=== PATIENT | female | born 1990 ===

== ENCOUNTER 2022-07-04 13:47 | Inpatient (IN) | payer OTHER, BC, MEDICAID, SELFPAY ==
[2022-07-04 14:56] VITALS: BMI 21.4
[2022-07-04 15:01] VITALS: BP 121/82; PULSE 99; RESP 18; TEMP 36.7; O2SAT 100
[2022-07-04] MEDS: LORazepam 2 mg Tablet PO (16:24)
[2022-07-04] MEDS: diphenhydrAMINE 50 mg Capsule PO (16:24)
[2022-07-04] MEDS: haloperidol 5 mg Tablet PO (16:24)
[2022-07-04 22:00] VITALS: RESP 16
[2022-07-05 06:00] VITALS: BP 102/71; PULSE 109; RESP 17; TEMP 36.6; O2SAT 100
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
--- NOTE | 2022-07-05 12:59 | PC.NURSE ---
Patient Behavior Attempted to talk with patient - patient unable to answer most questions appropriately. For example - are you going to eat lunch? I am who i say i am . Patient goes from tearful and crying to calm and quiet. Patient has only been out of bed a few times this am. She will go to the mirror and stare for 1-2 minutes and go back to bed. When asked if she wanted to hurt herself or others, stated I miss Guera, but she isn't me . Will continue to monitor.
[2022-07-05] MEDS: LORazepam 2 mg Tablet PO (13:27)
--- NOTE | 2022-07-05 13:28 | PC.NURSE ---
Patient Behavior Patient out of bed, pacing in halls, talking incoherently to herself. Patient swings from smiling to crying in just seconds. Patient stated to this digital court reporter that you are my [place] drop and then began crying. Ativan 2mg given PO. Will continue to monitor.
[2022-07-05 14:00] VITALS: BP 109/74; PULSE 72; RESP 18; TEMP 36.8; O2SAT 98
--- NOTE | 2022-07-05 14:30 | PC.NURSE ---
Patient lying in bed with eyes closed. Will continue to monitor.
--- NOTE | 2022-07-05 14:48 | PC.NURSE ---
Patient currently refusing to take ordered Abilify. Explained that the Ordered it today and she stated i might later . Will attempt to administer later in the shift.
--- NOTE | 2022-07-05 15:32 | PC.NURSE ---
Patient Behavior Patient at nurses station requesting a snack. Told the patient i still had medication for her to take. She stated she wanted what she asked for and nothing more. Will try again during the shift.
--- NOTE | 2022-07-05 18:45 | PC.NURSE ---
Medication Refusal Patient was offered her medication (Abilify) again and continues to refuse. Dr. Park notified.
[2022-07-05 21:24] VITALS: BP 130/86; PULSE 98; RESP 18; TEMP 36.7; O2SAT 99
[2022-07-06 06:00] VITALS: BP 107/73; PULSE 76; RESP 18; TEMP 36.9; O2SAT 95; BMI 21.4
[2022-07-06] MEDS: OLANZapine 5 mg ODT PO ×2 (07:53→20:33)
[2022-07-06] MEDS: ARIPiprazole 10 mg Tablet PO (07:53)
[2022-07-06] MEDS: hyDROXYzine 25 mg Capsule 50 MG PO ×2 (07:54→20:33)
[2022-07-06] MEDS: nicotine 2 mg Gum BUCCAL (09:49)
[2022-07-06] MEDS: LORazepam 2 mg/mL INJ 1 mL IM (10:08)
[2022-07-06] MEDS: diphenhydrAMINE 50 mg/mL SDV 1mL IM (10:08)
[2022-07-06] MEDS: haloperidol inj 5 mg/mL INJ 1 mL IM (10:08)
--- NOTE | 2022-07-06 10:09 | PC.NURSE ---
INCREASED BEHAVIORS PT VERY AGITATED, GOING UP AND DOWN HALLS RYMING WORDS, THROWING HANDS IN THE AIR, TELLING STAFF I'M GOING TO HIT YOU ALL, I'm DR. BAY. PT WAS OFFERED MEDICATION SEVERAL TIMES BUT WAS PARANOID STATING, MY MOTHER IN LAW TOOK THAT AND NOW SHE'S SO NO. PT INCREASINGLY BECAME MORE AGITATED COMING UP TO NURSES STATION CRYING, THEN LAUGHING LOUDLY THEN MAKING OBSCURE STATEMENTS TO STAFF. SECURITY WAS CALLED TO STAND BY. WHEN DIVINITY TEACHER GOT HER PT STARTED MAKING STATEMENT I WANT TO MAKE BABIES WITH HIM. THEN LIFTED UP HER SHIRT SHOWING HER STOMACH STATING I HAVE FOUR BABIES BUT THEY TOOK THEM. THEN PT BEGAN CRYING AGAIN. PT WENT TO ROOM AND EDUCATED ON INJECTIONS, PT THEN SUDDENLY AGREED TO TAKE THEM, SAT DOWN AND ASKED X RAY NURSE TO HOLD HER HAND. NURSING HOME PHYSICIAN INJECTED 2 MG OF ATIVAN AND 5 MG OF HALDOL INTO RIGHT DELTOID. THIS RN INJECTED 50 MG OF BENADRYL TO LEFT DELTOID. PT TOLERATED WELL. THIS RN STAYED WITH PT UNTIL SHE CALMED AND STOPPED CRYING. PT REQUESTED ICE WATER AND IT WAS GIVEN. PT LAID DOWN A FEW MINUTES AND THEN GOT UP AND WALKED INTO DAY ROOM WHILE GOING BY NURSES STATION MUTTERING COMMENTS UNDER HER BREATHE. ALL NEEDS MET. PT DID VERBALIZE SOME UNDERSTANDING BUT REMAINS CONFUSED AND MAKING NONSENSICAL STATEMENTS.
--- NOTE | 2022-07-06 10:48 | PC.NURSE ---
PRN MEDICATIONS PT RECEIVED PRN MEDICATIONS EARLY AM FOR INCREASED ANXIETY AND AGITATION. VISTARIL AND ZYDIS GIVEN ORDERED SEE MAR FOR DETAILS. MEDICATIONS NOT EFFECTIVE. PT CONTINUED TO ESCALATE AND REQUIRE ATIVAN, HALDOL AND BENADRYL IM. SEE NOTE FOR DETAILS
[2022-07-06 14:00] VITALS: BP 128/78; PULSE 82; RESP 17; TEMP 36.6; O2SAT 97
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
[2022-07-06 19:42] VITALS: RESP 18
--- NOTE | 2022-07-06 20:30 | PC.NURSE ---
Patient was labile after verbal altercation with another female peer. Patient was making nonsensical bizarre statements to this rfp writer. Redirection attempted but patient continued to be tearful one moment then agitated the next moment. PRN Zyprexa po and vistaril po offered and taken at that time without difficulty. Patient offered snack and fluids. Walked patient to her room after.
--- NOTE | 2022-07-06 21:45 | PC.NURSE ---
Patient is currently resting quietly in bed with eyes closed at this time. No further behavior's noted after prn administration.
[2022-07-06] MEDS: trazodone 50 mg Tablet PO (21:50)
[2022-07-07 06:00] VITALS: BP 108/74; PULSE 68; RESP 16; TEMP 36.6; O2SAT 98
[2022-07-07] MEDS: ARIPiprazole 10 mg Tablet PO (08:29)
[2022-07-07] MEDS: diphenhydrAMINE 50 mg Capsule PO (11:04)
[2022-07-07] MEDS: haloperidol 5 mg Tablet PO (11:04)
[2022-07-07] MEDS: LORazepam 2 mg Tablet PO (11:04)
[2022-07-07 14:00] VITALS: BP 115/85; PULSE 109; RESP 20; TEMP 36.7; O2SAT 98
--- NOTE | 2022-07-07 16:14 | W.PM.NPUPNS ---
Subjective NPU Subjective: Patient is a 31-year-old white female with a history of methamphetamine abuse admitted with psychosis after initially being transferred from another hospital. The patient continue to appear confused on the unit. She had reported that someone had taken her schedules and that she was waiting and happen for Ken. She reported that she had been to [place] before and that she had met with a another person on the road to her redemption. She had spent most of the day lying in her bed and appeared to only come out to get food and sustenance. She had required significant prompting for routine activities of daily living. Mental Status Exam MSE Comments: This is a slender white female who appeared older than her stated age in hospital scrubs with poor grooming and intermittent eye contact. No abnormal movements except for extreme psychomotor agitation. Her cooperation was limited on examination. Speech was random with decreased rate and volume. Mood described as okay, her affect was labile, bizarre and mood incongruent. Thought process was disorganized. Thought content: Patient did not report suicidal or homicidal ideation, there was clear evidence of bizarre delusions and she did appear to be responding to internal stimuli. Attention and concentration were impaired and memory was unreliable but none were formally tested. She is alert and oriented to person and location but not date. Insight was feeble, Her judgment and impulse control are impaired. Vitals/I&O/Wt Last Vital Signs Temp 98.1 F 07/07/22 14:00 Pulse 109 H 07/07/22 14:00 Resp 20 H 07/07/22 14:00 BP 115/85 07/07/22 14:00 Pulse Ox 98 07/07/22 14:00 O2 Del Method 07/06/22 06:00 Weight last 48 hrs Weight 58.457 kg A&P Assessment and plan (1) Altered mental status: (2) Psychosis: (3) Methamphetamine use disorder, severe: Plan This is a 31-year-old white female who looks notably altered in mental status and a presentation consistent with methamphetamine use who presents with psychosis, confusion emotional dysregulation with significant hyperkinetic activity. 1. Increase abilify 15mg in am. 2. Continue every 15 minute checks for safety. 3. Encourage individual, group and milieu therapies. 4. Encourage sober living treatment after discharge at the highest level of care to which she is willing to commit. Involuntary Hold Information 96 Hour Hold: 96 Hour Involuntary Admission: No Attestations NPU Medical Necessity Statement*: Inpatient hospitalization is medically necessary and the clinically appropriate intervention at this time. We will monitor/initiate medications and make changes as indicated. She will be in the hospital for over 2 midnights. Likely length of stay 5 to 7 days. Coding Level of Care Code Established Pt Acute Senior Service Technician for Briseida Hathaway Patient Type Established History Problem Focused Exam Problem Focused Medical Decision Making Straight Forward Diagnoses Altered mental status R41.82 Psychosis F29 Methamphetamine use disorder, severe F15.20
[2022-07-07 20:21] VITALS: BP 101/66; PULSE 80; RESP 16; TEMP 36.9; O2SAT 96
[2022-07-08] MEDS: ARIPiprazole 10 mg Tablet 15 MG PO (08:00)
[2022-07-08] MEDS: haloperidol 5 mg Tablet PO ×2 (08:09→20:17)
[2022-07-08] MEDS: LORazepam 2 mg Tablet PO (08:09)
[2022-07-08] MEDS: diphenhydrAMINE 50 mg Capsule PO (08:09)
[2022-07-08 14:00] VITALS: BP 101/63; PULSE 94; RESP 16; TEMP 36.9; O2SAT 93
--- NOTE | 2022-07-08 16:39 | P.NPUPN_ITS ---
Subjective NPU Subjective: Patient is a 31-year-old white female with a history of methamphetamine abuse admitted with psychosis after initially being transferred from another hospital due to psychiatric bed availability. The patient continue to appear confused on the unit but appeared to be coming out of her room more. She continued to be confused and reported that she was here for her schedules and reported that she felt ready to return home. She had minimized the use of any illicit drugs and reported that she simply needed to get back on track again. Staff notes the patient continued to be somewhat guarded and struggled with having periods of intense verbal outbursts and periods of intense irritability that required the as needed use of medications. Mental Status Exam MSE Comments: This is a slender white female who appeared older than her stated age in hospital scrubs with poor grooming and intermittent eye contact. No abnormal movements except for extreme psychomotor agitation. Her cooperation was limited on examination. Speech was diminished in rate and normal in volume. Mood described as better. Her affect was labile with periods of happiness followed by periods of intense crying without any clear provocation. Thought process was disorganized. Thought content: Patient did not report suicidal or homicidal ideation, there was clear evidence of bizarre delusions and she did appear to be responding to internal stimuli. Attention and concentration were impaired and memory was unreliable but none were formally tested. She is alert and oriented to person and location but not date. Insight was feeble, Her judgment and impulse control are impaired. Vitals/I&O/Wt Last Vital Signs Temp 98.5 F 07/08/22 14:00 Pulse 94 07/08/22 14:00 Resp 16 07/08/22 14:00 BP 101/63 07/08/22 14:00 Pulse Ox 93 07/08/22 14:00 O2 Del Method 07/08/22 14:00 A&P Assessment and plan (1) Altered mental status: (2) Psychosis: (3) Methamphetamine use disorder, severe: Plan This is a 31-year-old white female who looks notably altered in mental status and a presentation consistent with methamphetamine use who presents with psychosis, confusion emotional dysregulation with significant hyperkinetic activity. 1. Continue abilify at 15mg in am. 2. Continue every 15 minute checks for safety. 3. Encourage individual, group and milieu therapies. 4. Encourage sober living treatment after discharge at the highest level of care to which she is willing to commit. Involuntary Hold Information 96 Hour Hold: 96 Hour Involuntary Admission: No Attestations NPU Medical Necessity Statement*: Inpatient hospitalization is medically necessary and the clinically appropriate intervention at this time. We will monitor/initiate medications and make changes as indicated. She will be in the hospital for over 2 midnights. Likely length of stay 5 to 7 days. Coding Level of Care Code Established Pt Acute Reel Blade Bender Furnace Tender for Briseida Fwsiddharth Patient Type Established History Problem Focused Exam Problem Focused Medical Decision Making Straight Forward Diagnoses Altered mental status R41.82 Psychosis F29 Methamphetamine use disorder, severe F15.20
[2022-07-08] MEDS: hyDROXYzine 25 mg Capsule 50 MG PO (19:39)
[2022-07-08] MEDS: OLANZapine 5 mg ODT PO (19:39)
[2022-07-08 20:12] VITALS: BP 120/74; PULSE 92; RESP 17; TEMP 36.4; O2SAT 93
[2022-07-08] MEDS: nicotine 2 mg Gum BUCCAL ×2 (20:17→22:25)
[2022-07-09 06:00] VITALS: RESP 16
[2022-07-09] MEDS: nicotine 2 mg Gum BUCCAL ×4 (08:41→18:12)
[2022-07-09] MEDS: ARIPiprazole 10 mg Tablet 15 MG PO (08:41)
[2022-07-09] MEDS: haloperidol 5 mg Tablet PO (09:15)
[2022-07-09] MEDS: diphenhydrAMINE 50 mg Capsule PO (09:15)
[2022-07-09] MEDS: LORazepam 2 mg Tablet PO (09:47)
[2022-07-09] MEDS: acetaminophen 325 mg Tablet 650 MG PO (12:56)
[2022-07-09 14:00] VITALS: RESP 18
[2022-07-09] MEDS: hyDROXYzine 25 mg Capsule 50 MG PO (15:15)
--- NOTE | 2022-07-09 15:46 | P.NPUPN_ITS ---
Subjective NPU Subjective: Patient is a 31-year-old white female with a history of methamphetamine abuse admitted with psychosis after initially being transferred from another hospital due to psychiatric bed availability. The patient had been coming out of her room more frequently. She had responded well to prompting for completing activities of daily living. She continued to show evidence of periods of intense agitation and appeared to be at times triggered into periods of intense crying. The patient had minimized her substance abuse problem initially but stated that she was ready to consider treatment for her addiction. The patient had reported previously having problems with being able to separate reality from fantasy when taking amphetamines. Mental Status Exam MSE Comments: This is a slender white female who appeared older than her stated age in hospital scrubs with poor grooming and intermittent eye contact. No abnormal movements except for extreme psychomotor agitation. Her cooperation was improved today. Speech was diminished in rate and normal in volume. Mood described as better. Her affect was labile, mood incongruent. Thought process was less disorganized. Thought content: Patient did not report suicidal or homicidal ideation, there was clear evidence of paranoia and she did appear to be responding to internal stimuli. Attention and concentration were impaired and memory was unreliable but none were formally tested. She is alert and oriented to person and location but not date. Insight was feeble, Her judgment and impulse control are impaired. Vitals/I&O/Wt Last Vital Signs Temp 97.5 F L 07/08/22 20:12 Pulse 92 07/08/22 20:12 Resp 16 07/09/22 06:00 BP 120/74 07/08/22 20:12 Pulse Ox 93 07/08/22 20:12 O2 Del Method 07/08/22 14:00 A&P Assessment and plan (1) Altered mental status: (2) Psychosis: (3) Methamphetamine use disorder, severe: Plan This is a 31-year-old white female who looks notably altered in mental status and a presentation consistent with methamphetamine use who presents with psychosis, confusion emotional dysregulation with significant hyperkinetic activity. 1. Continue abilify at 15mg in am. 2. Continue every 15 minute checks for safety. 3. Encourage individual, group and milieu therapies. 4. Encourage sober living treatment after discharge at the highest level of care to which she is willing to commit. Patient in need of inpatient substance abuse treatment. Involuntary Hold Information 96 Hour Hold: 96 Hour Involuntary Admission: No Attestations NPU Medical Necessity Statement*: Inpatient hospitalization is medically necessary and the clinically appropriate intervention at this time. We will monitor/initiate medications and make changes as indicated. She will be in the hospital for over 2 midnights. Likely length of stay 5 to 7 days. Coding Level of Care Code Established Pt Acute Coin Box Inspector for Briseida Hathaway Patient Type Established History Problem Focused Exam Problem Focused Medical Decision Making Straight Forward Diagnoses Altered mental status R41.82 Psychosis F29 Methamphetamine use disorder, severe F15.20
[2022-07-09 20:12] VITALS: BP 100/61; PULSE 85; RESP 16; O2SAT 98
[2022-07-10 06:00] VITALS: RESP 15
[2022-07-10] MEDS: acetaminophen 325 mg Tablet 650 MG PO (07:24)
[2022-07-10] MEDS: ARIPiprazole 10 mg Tablet 15 MG PO (08:35)
[2022-07-10] MEDS: nicotine 2 mg Gum BUCCAL ×5 (08:36→22:00)
--- NOTE | 2022-07-10 09:14 | PC.NURSE ---
Patient going from being very ecstatic, to calm, to crying. Patient talks in rhymes and stated she knew the manuel to her brenda was in the era, of surinder, for the aura. She cries often about her mother dying and quickly switches to other topics like listening to Weezer and having 4 kids. She repeatedly talks about needing manuel and the skittles come and pick her up on time today. This RN told her she was not being discharged today and although she acknowledged this she still talked about calling them.
[2022-07-10] MEDS: diphenhydrAMINE 50 mg Capsule PO ×2 (09:48→14:08)
[2022-07-10] MEDS: OLANZapine 5 mg ODT PO ×2 (10:45→21:58)
--- NOTE | 2022-07-10 13:20 | P.NPUPN_ITS ---
Subjective NPU Subjective: Patient is a 31-year-old white female with a history of methamphetamine abuse admitted with psychosis after initially being transferred from another hospital due to psychiatric bed availability. The patient continued to engage in odd behaviors on the unit. She was throwing her shoes in the hallway and stated that she was caught in between 2 doorways. She continued to appear confused and required some redirection. She continued to minimize the problems including substance abuse that had led to her active problems. She continued to have intense periods of agitation and frequent crying spells. Patient denied having currently any thoughts of hurting herself or others Mental Status Exam MSE Comments: This is a slender white female who appeared older than her stated age in hospital scrubs with poor grooming and intermittent eye contact. There was no evidence of any abnormal involuntary motor movements appreciated. . Speech was diminished in rate and normal in volume. Mood described as good. Her affect was labile with periods of peculiar thinking noted. Thought process remained disorganized and nonlinear. Thought content: Patient did not report suicidal or homicidal ideation, She appeared to be responding to internal stimuli. Attention and concentration were impaired and memory was unreliable but none were formally tested. She is alert and oriented to person and l ocation but not date. Insight was feeble, Her judgment and impulse control are impaired. Vitals/I&O/Wt Last Vital Signs Temp 97.5 F L 07/08/22 20:12 Pulse 85 07/09/22 20:12 Resp 15 07/10/22 06:00 BP 100/61 07/09/22 20:12 Pulse Ox 98 07/09/22 20:12 O2 Del Method 07/08/22 14:00 A&P Assessment and plan (1) Altered mental status: (2) Psychosis: (3) Methamphetamine use disorder, severe: Plan This is a 31-year-old white female who looks notably altered in mental status and a presentation consistent with methamphetamine use who presents with psychosis, confusion emotional dysregulation with significant hyperkinetic activity. 1. Continue abilify at 15mg in am. 2. Continue every 15 minute checks for safety. 3. Encourage individual, group and milieu therapies. 4. Encourage sober living treatment after discharge at the highest level of care to which she is willing to commit. Patient in need of inpatient substance abuse treatment. Involuntary Hold Information 96 Hour Hold: 96 Hour Involuntary Admission: No Attestations NPU Medical Necessity Statement*: Inpatient hospitalization is medically necessary and the clinically appropriate intervention at this time. We will monitor/initiate medications and make changes as indicated. She will be in the hospital for a likely length of stay 5 to 7 days. Coding Level of Care Code Established Pt Acute Chronometer Assembler And Adjuster for Briseida Hathaway Patient Type Established History Problem Focused Exam Problem Focused Medical Decision Making Straight Forward Diagnoses Altered mental status R41.82 Psychosis F29 Methamphetamine use disorder, severe F15.20
[2022-07-10 14:00] VITALS: BP 104/65; PULSE 80; RESP 17; TEMP 36.6; O2SAT 95
[2022-07-10] MEDS: LORazepam 2 mg Tablet PO (14:07)
[2022-07-10] MEDS: haloperidol 5 mg Tablet PO (14:08)
[2022-07-10] MEDS: ziprasidone 20 mg/mL SDV IM (14:40)
[2022-07-10] MEDS: ibuprofen 600 mg Tablet PO (14:46)
--- NOTE | 2022-07-10 15:23 | PC.NURSE ---
40 mg Geodon administered IM at 1404 due to patient stripping another patient's bed and lying on the floor with the stripped linens. She then began sobbing uncontrollably and occasionally stopping to talk about skittles, her manuel to her brenda, a car being her home, manuel having a dump truck, etc. Patient then got out of the floor and started talking quickly, eventually becoming emotional enough to jump up and down on both feet with clenched fists. She stated, it's not fair that I'm in here! It's not okay! This RN tried to verbally deescalate the patient, but the patient continued to pace, ramble, and get angry. Patient initially refused IM Geodon and said we would have to jorge her and that she would keep running if we tried to give her a shot. This RN and other staff got the patient to agree to take the medication so she could remain stable. Security on standby.
[2022-07-10 20:38] VITALS: RESP 17
[2022-07-10] MEDS: hyDROXYzine 25 mg Capsule 50 MG PO (21:58)
[2022-07-10] MEDS: trazodone 50 mg Tablet PO (21:58)
[2022-07-11] MEDS: OLANZapine 5 mg ODT PO (02:46)
[2022-07-11] MEDS: hyDROXYzine 25 mg Capsule 50 MG PO ×2 (02:46→12:27)
[2022-07-11] MEDS: nicotine 2 mg Gum BUCCAL ×5 (03:26→19:38)
[2022-07-11 06:00] VITALS: RESP 18
[2022-07-11] MEDS: LORazepam 2 mg Tablet PO ×2 (06:31→19:27)
[2022-07-11] MEDS: diphenhydrAMINE 50 mg Capsule PO ×2 (06:31→19:27)
[2022-07-11] MEDS: haloperidol 5 mg Tablet PO ×2 (06:31→19:27)
[2022-07-11] MEDS: ARIPiprazole 10 mg Tablet 15 MG PO (08:25)
[2022-07-11 14:00] VITALS: BP 103/74; PULSE 95; RESP 16; TEMP 36.6; O2SAT 99
--- NOTE | 2022-07-11 17:05 | W.PM.NPUPNS ---
Subjective NPU Subjective: Patient is a 31-year-old white female with a history of methamphetamine abuse admitted with psychosis after initially being transferred from another hospital due to psychiatric bed availability. Patient continued to show evidence of unusual behaviors on the milieu. She had been less isolative today. She continued to remain somewhat silly and made odd connections between unrelated subjects. She continued to report some struggles with motivation but acknowledged that she had been using amphetamines which messes me up . She had reported improved sleep. She denied having any thoughts of hurting herself or others. The patient reported good energy and reported desire to see her family again. Mental Status Exam MSE Comments: This is a slender white female who appeared older than her stated age in hospital scrubs with poor grooming and intermittent eye contact. There was no evidence of any abnormal involuntary motor movements appreciated. . Speech was diminished in rate and normal in volume. Mood described as good. Her affect was labile and peculiar. Thought process was more linear but derailed during the interview. Thought content: Patient did not report suicidal or homicidal ideation, She appeared to be responding to internal stimuli. Attention and concentration were impaired and memory was unreliable but none were formally tested. She is alert and oriented to person and location but not date. Insight was feeble, Her judgment and impulse control are impaired. Vitals/I&O/Wt Last Vital Signs Temp 98 F 07/11/22 14:00 Pulse 95 07/11/22 14:00 Resp 16 07/11/22 14:00 BP 103/74 07/11/22 14:00 Pulse Ox 99 07/11/22 14:00 O2 Del Method 07/11/22 14:00 A&P Assessment and plan (1) Altered mental status: (2) Psychosis: (3) Methamphetamine use disorder, severe: Plan This is a 31-year-old white female who looks notably altered in mental status and a presentation consistent with methamphetamine use who presents with psychosis, confusion emotional dysregulation with significant hyperkinetic activity. 1. Continue abilify at 15mg in am. 2. Continue every 15 minute checks for safety. 3. Encourage individual, group and milieu therapies. 4. Encourage sober living treatment after discharge at the highest level of care to which she is willing to commit. Patient in need of inpatient substance abuse treatment. She is showing some mild improvement at this time. Involuntary Hold Information 96 Hour Hold: 96 Hour Involuntary Admission: No Attestations NPU Medical Necessity Statement*: Inpatient hospitalization is medically necessary and the clinically appropriate intervention at this time. We will monitor/initiate medications and make changes as indicated. She will be in the hospital for a likely length of stay 5 to 7 days. Coding Level of Care Code Established Pt Acute Tunnel Elastic Operator Zigzag for Briseida Hathaway Patient Type Established History Problem Focused Exam Problem Focused Medical Decision Making Straight Forward Diagnoses Altered mental status R41.82 Psychosis F29 Methamphetamine use disorder, severe F15.20
[2022-07-11 20:38] VITALS: BP 133/88; PULSE 81; RESP 17; TEMP 36.8; O2SAT 97
[2022-07-12 06:00] VITALS: BP 118/80; PULSE 94; RESP 18; TEMP 36.5; O2SAT 98
[2022-07-12] MEDS: diphenhydrAMINE 50 mg Capsule PO ×3 (06:49→21:40)
[2022-07-12] MEDS: LORazepam 2 mg Tablet PO ×3 (06:49→21:40)
[2022-07-12] MEDS: haloperidol 5 mg Tablet PO ×3 (06:50→21:40)
--- NOTE | 2022-07-12 06:51 | PC.NURSE ---
pt up at nurses station asking if she is getting to go home today I told pt that is for the doctor to decide. patient stated if she did not get to go home today everyone will get to know her in the bad way . pt continued to ask if she was going home today because she wanted to talk with her daughter today. I asked patient if would like something for her anxiety she stated no when I want them they will want to give them to me . after attempts to redirect patient pt left nurses station walked down hallway came back and requested her medication. administered haldol, benadryll, lorazepam.
[2022-07-12] MEDS: nicotine 2 mg Gum BUCCAL ×4 (07:38→19:58)
[2022-07-12] MEDS: ARIPiprazole 10 mg Tablet 15 MG PO (08:29)
[2022-07-12] MEDS: benztropine 1 mg Tablet PO (10:29)
--- NOTE | 2022-07-12 12:54 | P.NPUPN_ITS ---
Subjective NPU Subjective: Patient is a 31-year-old white female with a history of methamphetamine abuse admitted with psychosis after initially being transferred from another hospital due to psychiatric bed availability. The patient had endorsed a history of bipolar disorder with a history of decreased need for sleep and reports of a history of racing thoughts even in the absence of drug use. Patient reports that he that she wishes to see her daughter who is 12 toes down and reports that she is special. She had reported feeling that she is at home right now but could not elaborate regarding this matter. She had reported that she needed help with making her way through the [facility]. Mental Status Exam MSE Comments: This is a slender white female who appeared older than her stated age in hospital scrubs with poor grooming and intermittent eye contact. There was no evidence of any abnormal involuntary motor movements appreciated. . Speech was productive and normal in regards to rate and rhythm. Her mood was described as good. Her affect was odd and peculiar. Thought process was nonlinear with periods of odd use of metaphors with clang associations. Thought content: Patient did not report suicidal or homicidal ideation, there was some evidence of delusional thinking. There was evidence of overvalued ideas. Her attention and concentration remain impaired and memory was unreliable but none were formally tested. She is alert and oriented to person and location but not date. Insight was feeble, Her judgment and impulse control are impaired. Vitals/I&O/Wt Last Vital Signs Temp 97.7 F 07/12/22 06:00 Pulse 94 07/12/22 06:00 Resp 18 07/12/22 06:00 BP 118/80 07/12/22 06:00 Pulse Ox 98 07/12/22 06:00 O2 Del Method 07/12/22 06:00 A&P Assessment and plan (1) Altered mental status: (2) Psychosis: (3) Methamphetamine use disorder, severe: Plan This is a 31-year-old white female who looks notably altered in mental status and a presentation consistent with methamphetamine use who presents with psychosis, confusion emotional dysregulation with significant hyperkinetic activity. 1. Increase abilify to 20mg in am. 2. Continue every 15 minute checks for safety. 3. Encourage individual, group and milieu therapies. 4. Encourage sober living treatment after discharge at the highest level of care to which she is willing to commit. Patient in need of inpatient substance abuse treatment. She is showing some mild improvement at this time. Involuntary Hold Information 96 Hour Hold: 96 Hour Involuntary Admission: No Attestations NPU Medical Necessity Statement*: Inpatient hospitalization is medically necessary and the clinically appropriate intervention at this time. We will monitor/initiate medications and make changes as indicated. She will be in the hospital for a likely length of stay 5 to 7 days. Coding Level of Care Code Established Pt Acute Tax Compliance Representative for Briseida Hathaway Patient Type Established History Problem Focused Exam Problem Focused Medical Decision Making Straight Forward Diagnoses Altered mental status R41.82 Psychosis F29 Methamphetamine use disorder, severe F15.20
[2022-07-12] MEDS: ARIPiprazole 10 mg Tablet 5 MG PO (13:37)
[2022-07-12 14:00] VITALS: BP 99/65; PULSE 113; RESP 17; TEMP 36.3; O2SAT 97
[2022-07-12] MEDS: OLANZapine 5 mg ODT PO (16:23)
[2022-07-12] MEDS: trazodone 50 mg Tablet PO (19:58)
[2022-07-12] MEDS: hyDROXYzine 25 mg Capsule 50 MG PO (19:58)
[2022-07-12 20:42] VITALS: BP 120/72; PULSE 99; RESP 18; TEMP 36.7; O2SAT 100
--- NOTE | 2022-07-12 21:43 | PC.NURSE ---
AFTER SPEAKING TO HER DAUGHTER PT CRYING, ROCKING BACK AND FORTH, STATING WANTING TO GO HOME, ADMINISTERED MEDICATION TO ASSIST PT WITH ANXIETY.
[2022-07-13 06:00] VITALS: BP 109/74; PULSE 90; RESP 18; TEMP 36.5; O2SAT 100
[2022-07-13] MEDS: hyDROXYzine 25 mg Capsule 50 MG PO (06:06)
[2022-07-13] MEDS: nicotine 2 mg Gum BUCCAL ×6 (06:06→18:56)
[2022-07-13] MEDS: LORazepam 2 mg Tablet PO ×2 (06:47→15:55)
[2022-07-13] MEDS: diphenhydrAMINE 50 mg Capsule PO ×2 (06:47→15:55)
[2022-07-13] MEDS: haloperidol 5 mg Tablet PO ×2 (06:47→15:55)
--- NOTE | 2022-07-13 06:48 | PC.NURSE ---
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 pt at nurses station crying talking about manuels mom being and manuel is . administered prn medication for anxiety
[2022-07-13] MEDS: OLANZapine 5 mg ODT PO (07:45)
[2022-07-13] MEDS: ARIPiprazole 10 mg Tablet 20 MG PO (08:45)
[2022-07-13] MEDS: ziprasidone hcl 20 mg Capsule PO ×2 (10:06→21:28)
[2022-07-13 14:00] VITALS: RESP 14
--- NOTE | 2022-07-13 16:15 | PC.NURSE ---
PT UP IN THE [facility] AFTER NAP AND IS TEARFUL. PT VERY MANIC TALKING WITH LOOSE ASSOCIATIONS. PT RECEIVED ORAL BENADRYL, ATIVAN, AND HALDOL. PT CONTINUES TO BE MANIC AND UP AT THE NURSES STATION. DOCTOR NOTIFIED.
--- NOTE | 2022-07-13 17:56 | P.NPUPN_ITS ---
Subjective NPU Subjective: Patient is a 31-year-old white female with a history of methamphetamine abuse admitted with psychosis after initially being transferred from another hospital due to psychiatric bed availability. The patient had continued to have periods of agitation requiring as needed medications. She had reported that she needed to go home today. She had made vague threatening statements to staff stating that she would potentially hit staff if she was unable to return home. She had reported that she was a dump truck and did not elaborate regarding the meaning of this. She continued to require additional medications at night for sleep with significant problems with engaging in self care and an inability to control her moods with extreme periods of crying followed by periods of intense agitation. The patient continued to be somewhat demanding on the unit and appeared confused regarding where she was currently. Mental Status Exam MSE Comments: This is a slender white female who appeared older than her stated age in hospital scrubs with poor grooming and intermittent eye contact. There was no evidence of any abnormal involuntary motor movements appreciated. . Speech was productive and normal in regards to rate and rhythm. Her mood was described as great. Her affect was odd and peculiar. Thought process was nonlinear with periods of odd use of metaphors with clang associations. Thought content: Patient did not report suicidal or homicidal ideation, there was evidence of bizarre delusional thinking. There was evidence of overvalued ideas. Her attention and concentration remain impaired and memory was unreliable but none were formally tested. She is alert and oriented to person and location but not date. Insight was feeble, Her judgment and impulse control are impaired. Vitals/I&O/Wt Last Vital Signs Temp 97.7 F 07/13/22 06:00 Pulse 90 07/13/22 06:00 Resp 14 07/13/22 14:00 BP 109/74 07/13/22 06:00 Pulse Ox 100 07/13/22 06:00 O2 Del Method 07/13/22 06:00 A&P Assessment and plan (1) Altered mental status: (2) Psychosis: (3) Methamphetamine use disorder, severe: Plan This is a 31-year-old white female who looks notably altered in mental status and a presentation consistent with methamphetamine use who presents with psychosis, confusion emotional dysregulation with significant hyperkinetic activity. 1. Continue abilify to 20mg in am. 2. Continue every 15 minute checks for safety. 3. Encourage individual, group and milieu therapies. 4. Encourage sober living treatment after discharge at the highest level of care to which she is willing to commit. Patient in need of inpatient substance abuse treatment. She is showing some mild improvement at this time but not able to leave voluntarily. Involuntary Hold Information 96 Hour Hold: 96 Hour Involuntary Admission: No Attestations NPU Medical Necessity Statement*: Inpatient hospitalization is medically necessary and the clinically appropriate intervention at this time. We will monitor/initiate medications and make changes as indicated. She will be in the hospital for a likely length of stay 5 to 7 days. Coding Level of Care Code Established Pt Acute Supervisor Network Control Operators for Briseida Hathaway Patient Type Established History Problem Focused Exam Problem Focused Medical Decision Making Straight Forward Diagnoses Altered mental status R41.82 Psychosis F29 Methamphetamine use disorder, severe F15.20
[2022-07-13 20:18] VITALS: BP 98/63; PULSE 82; RESP 14; TEMP 36.8; O2SAT 98
[2022-07-14] MEDS: nicotine 2 mg Gum BUCCAL ×5 (01:23→18:16)
[2022-07-14] MEDS: trazodone 50 mg Tablet PO ×2 (01:37→19:43)
[2022-07-14] MEDS: hyDROXYzine 25 mg Capsule 50 MG PO ×2 (04:56→11:03)
--- NOTE | 2022-07-14 04:59 | PC.NURSE ---
pt up to desk requesting drugs . pt has been intruding on another pt's space . Vistaril 50mg po given.
[2022-07-14 06:00] VITALS: RESP 12
[2022-07-14] MEDS: ARIPiprazole 10 mg Tablet 20 MG PO (08:05)
[2022-07-14] MEDS: ziprasidone hcl 20 mg Capsule PO ×2 (08:05→19:43)
[2022-07-14] MEDS: benztropine 1 mg Tablet PO (08:27)
[2022-07-14] MEDS: OLANZapine 5 mg ODT PO (11:03)
[2022-07-14 14:00] VITALS: BP 112/77; PULSE 90; RESP 16; TEMP 36.6; O2SAT 96
[2022-07-14] MEDS: haloperidol inj 5 mg/mL INJ 1 mL IM (14:38)
--- NOTE | 2022-07-14 14:39 | PC.NURSE ---
PT WAS RUNNING UP AND DOWN THE HALLS AND BEING INTRUSIVE IN OTHER PTS ROOMS. PT REPEATEDLY STATED SHE WAS GOING TO TODAY. PT REPEATEDLY REPEATS PHRASES THAT DO NOT MAKE SENSE. PT WAS GIVEN HALDOL AND ATIVAN IN THE LEFT DELTOID.
--- NOTE | 2022-07-14 16:20 | PC.NURSE ---
PT FRIEND ANDRÉS DÍAZ CALLED TO GIVE MORE INFORMATION ABOUT THIS PT. ANDRÉS TELLS THIS NURSE THAT THE PT HAS HAD A ROUGH YEAR. PTS DAUGHTER WAS TAKEN AWAY THIS YEAR FOR SODOMY ACCUSATIONS. ANDRÉS STATES PT ONLY USED METH RECREATOINALLY UP UNTIL RECENTLY SHE STARTED USING DAILY. ANDRÉS STATES THE PT HAS ALWAYS BEEN ODD AND TALKS IN METAPHORS. HE IS NOT SURE HOW MUCH DIFFERENT SHE IS NOW THAN AT BASELINE.
--- NOTE | 2022-07-14 17:34 | W.PM.NPUPNS ---
Subjective NPU Subjective: Patient is a 31-year-old white female with a history of methamphetamine abuse admitted with psychosis after initially being transferred from another hospital due to psychiatric bed availability. The patient had continued to show evidence of bizarre behavior on the milieu. She continued to have extreme episodes of odd laughing followed by periods of intense crying with notable emotional outbursts and continued confusion. Collateral information gathered by the team continued to show evidence that the patient had been using stimulants including crystal methamphetamine for 6 years and she had largely been declining in regards to her mental state throughout this time. The patient reported today no thoughts of hurting herself or others. She continued to make unusual requests stating that she needed to become a frog and jump on a truck and leave here. Mental Status Exam MSE Comments: This is a slender white female who appeared older than her stated age in hospital scrubs with poor grooming and intermittent eye contact. There was no evidence of any abnormal involuntary motor movements appreciated. Speech was productive and normal in regards to rate and rhythm. Her mood was described as good. Her affect was odd and peculiar. Thought process was nonlinear with periods of odd use of metaphors with clang associations. Thought content: Patient did not report suicidal or homicidal ideation, there was evidence of bizarre delusional thinking. There was evidence of overvalued ideas. Her attention and concentration remain impaired and memory was unreliable but none were formally tested. She is alert and oriented to person and location but not date. Insight was feeble. Her judgment and impulse control are impaired. Vitals/I&O/Wt Last Vital Signs Temp 98 F 07/14/22 14:00 Pulse 90 07/14/22 14:00 Resp 16 07/14/22 14:00 BP 112/77 07/14/22 14:00 Pulse Ox 96 07/14/22 14:00 O2 Del Method 07/14/22 14:00 A&P Assessment and plan (1) Psychosis: (2) Altered mental status: (3) Methamphetamine use disorder, severe: Plan This is a 31-year-old white female who looks notably altered in mental status and a presentation consistent with methamphetamine use who presents with psychosis, confusion emotional dysregulation with significant hyperkinetic activity. 1. Continue abilify to 20mg in am. 2. Continue every 15 minute checks for safety. 3. Encourage individual, group and milieu therapies. 4. Encourage sober living treatment after discharge at the highest level of care to which she is willing to commit. Patient in need of inpatient substance abuse treatment. She is showing some mild improvement at this time but not able to leave voluntarily. Involuntary Hold Information 96 Hour Hold: 96 Hour Involuntary Admission: No Attestations NPU Medical Necessity Statement*: Inpatient hospitalization is medically necessary and the clinically appropriate intervention at this time. We will monitor/initiate medications and make changes as indicated. She will be in the hospital for a likely length of stay 5 to 7 days. Coding Level of Care Code Established Pt Acute Narrow Gauge Operator for Briseida Hathaway Patient Type Established History Problem Focused Exam Problem Focused Medical Decision Making Straight Forward Diagnoses Psychosis F29 Altered mental status R41.82 Methamphetamine use disorder, severe F15.20
[2022-07-14] MEDS: LORazepam 2 mg Tablet PO (19:42)
[2022-07-14 21:07] VITALS: BP 108/72; PULSE 92; RESP 18; TEMP 36.3; O2SAT 97
[2022-07-15 06:00] VITALS: BP 99/62; PULSE 100; RESP 18; TEMP 36.4; O2SAT 99
[2022-07-15] MEDS: ARIPiprazole 10 mg Tablet 20 MG PO (08:21)
[2022-07-15] MEDS: nicotine 2 mg Gum BUCCAL ×3 (08:28→15:51)
[2022-07-15] MEDS: diphenhydrAMINE 50 mg Capsule PO (08:44)
[2022-07-15] MEDS: haloperidol 5 mg Tablet PO (08:44)
[2022-07-15] MEDS: LORazepam 2 mg Tablet PO (08:45)
[2022-07-15] MEDS: ziprasidone hcl 20 mg Capsule PO ×2 (09:57→19:05)
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
[2022-07-15 13:40] VITALS: BP 109/76; PULSE 79; RESP 16; TEMP 36.6; O2SAT 100
[2022-07-15] MEDS: haloperidol inj 5 mg/mL INJ 1 mL IM (15:53)
[2022-07-15] MEDS: diphenhydrAMINE 50 mg/mL SDV 1mL IM (15:53)
[2022-07-15] MEDS: LORazepam 2 mg/mL INJ 1 mL IM (15:54)
[2022-07-15] MEDS: ibuprofen 600 mg Tablet PO (18:30)
[2022-07-15] MEDS: hyDROXYzine 25 mg Capsule 50 MG PO (18:30)
[2022-07-15] MEDS: benztropine 1 mg Tablet PO (19:05)
[2022-07-16] MEDS: LORazepam 2 mg Tablet PO ×4 (06:50→20:15)
[2022-07-16] MEDS: diphenhydrAMINE 50 mg Capsule PO ×4 (06:50→20:14)
[2022-07-16] MEDS: haloperidol 5 mg Tablet PO ×4 (06:50→20:15)
[2022-07-16] MEDS: ARIPiprazole 10 mg Tablet 20 MG PO (07:47)
[2022-07-16] MEDS: ziprasidone hcl 20 mg Capsule PO (07:47)
--- NOTE | 2022-07-16 07:48 | PC.NURSE ---
PRN GEODON 20 MG GIVEN PO PER PT C/O INCREASED PSYCHOSIS/AGITATION. PT PACING HALLWAY, ASKING PEOPLE TO SHAKE HER HAND, ASKING IF THEY WILL BE HER GOD
--- NOTE | 2022-07-16 07:55 | PC.NURSE ---
SHIFT ASSESSMENT DENIES SI/HI BUT TEARFUL, CRYING TOLD STAFF I'M JUST TRYING TO FIND OUT IF THEY ARE ALL ALIVE .... INCREASED ENERGY NOTED, PACING HALLWAYS AND SPEAKING TO ANYBODY THAT SHE PASSES BY. ASKING THIS STAFF MEMBER WILL YOU BE MY GOD TODAY
[2022-07-16] MEDS: nicotine 2 mg Gum BUCCAL ×3 (09:17→16:39)
--- NOTE | 2022-07-16 10:08 | PC.NURSE ---
PRN BENADRYL AND HALDOL BENADRYL 50 MG GIVEN PO WITH HALDOL 5 MG PO PER PT C/O STATED ANXIETY/AGITATION. PT HAS BEEN PACING HALLWAY OR LINGERING AT NURSES STATION, WAVING HANDS IN AIR, RAPID PRESSURED SPEECH NOTED, WILL BE TEARFUL OFF AND ON TALKING ABOUT HER SON DR. ERNST ... WILL CONT TO MONITOR
[2022-07-16] MEDS: OLANZapine 5 mg ODT PO (11:50)
[2022-07-16] MEDS: hyDROXYzine 25 mg Capsule 50 MG PO ×2 (11:50→20:15)
[2022-07-16 14:00] VITALS: BP 102/73; PULSE 100; RESP 18; TEMP 36.5; O2SAT 98
--- NOTE | 2022-07-16 15:14 | PC.NURSE ---
PRN HALDOL & BENADRYL HALDOL 5 MG GIVEN PO WITH BENADRYL 50 MG PO PER PT C/O STATED ANXIETY/AGITATION. PT CONT TO LINGER AT DESK, ASKING WHEN CAN SHE LEAVE, WHEN CAN SHE GET MORE PILLS
[2022-07-16] MEDS: ibuprofen 600 mg Tablet PO (15:23)
--- NOTE | 2022-07-16 15:55 | P.NPUPN_ITS ---
Subjective NPU Subjective: Patient is a 31-year-old white female with a history of methamphetamine abuse admitted with psychosis after initially being transferred from another hospital due to psychiatric bed availability. The patient continued to wander around the unit with unusual demands for staff and bizarre interactions with her peers and staff. She had expressed concern about needing to be present for a hearing next week and continued to show evidence of mood instability with the patient frequently having episodes of intense crying. She had been crying earlier today stating that her throat was hurting. When asked as to the cause of her crying she was unable to describe what was happening to her. She continued to show evidence of emotional incontinence. She states that she has a boyfriend to return to when she leaves the hospital. Mental Status Exam MSE Comments: This is a slender cachectic white female who appeared older than her stated age in hospital scrubs with poor grooming and intermittent eye contact. There was no evidence of any abnormal involuntary motor movements appreciated. Speech was productive and normal in regards to rate and rhythm. Her mood was described as horrible. Her affect was labile with evidence of emotional incontinence. Thought process was nonlinear with periods of odd use of metaphors with clang associations and use of nonsense words. Thought content: Patient did not report suicidal or homicidal ideation, there was evidence of bizarre delusional thinking. There was evidence of overvalued ideas. Her attention and concentration remain impaired and memory was unreliable but none were formally tested. She is alert and oriented to person and location but not date. Insight was feeble. Her judgment and impulse control are impaired. Vitals/I&O/Wt Last Vital Signs Temp 97.7 F 07/16/22 14:00 Pulse 100 07/16/22 14:00 Resp 18 07/16/22 14:00 BP 102/73 07/16/22 14:00 Pulse Ox 98 07/16/22 14:00 O2 Del Method 07/15/22 13:40 A&P Assessment and plan (1) Psychosis: (2) Methamphetamine use disorder, severe: (3) Altered mental status: Plan This is a 31-year-old white female who looks notably altered in mental status and a presentation consistent with methamphetamine use who presents with psychosis, confusion emotional dysregulation with significant hyperkinetic activity. 1. Increase abilify to 30mg in am. 2. Continue every 15 minute checks for safety. 3. Encourage individual, group and milieu therapies. 4. Encourage sober living treatment after discharge at the highest level of care to which she is willing to commit. Patient in need of inpatient substance abuse treatment. She remains psychotic at this time, KAN testing completed which revealed several concerns regarding patient's ability to safely exist independently without support. Involuntary Hold Information 96 Hour Hold: 96 Hour Involuntary Admission: No Attestations NPU Medical Necessity Statement*: Inpatient hospitalization is medically necessary and the clinically appropriate intervention at this time. We will monitor/initiate medications and make changes as indicated. She will be in the hospital for a likely length of stay 5 to 7 days. Coding Level of Care Code Established Pt Acute Material Control Supervisor for Briseida Hathaway Patient Type Established History Problem Focused Exam Problem Focused Medical Decision Making Straight Forward Diagnoses Psychosis F29 Methamphetamine use disorder, severe F15.20 Altered mental status R41.82
[2022-07-16] MEDS: trazodone 50 mg Tablet PO (20:15)
[2022-07-16 20:27] VITALS: BP 94/61; PULSE 93; RESP 17; O2SAT 100
[2022-07-17] MEDS: diphenhydrAMINE 50 mg Capsule PO ×3 (05:35→20:14)
[2022-07-17] MEDS: LORazepam 2 mg Tablet PO ×2 (05:35→20:14)
[2022-07-17] MEDS: haloperidol 5 mg Tablet PO ×3 (05:36→20:14)
[2022-07-17 06:00] VITALS: BP 110/77; PULSE 106; RESP 18; TEMP 36.3; O2SAT 100
--- NOTE | 2022-07-17 07:54 | PC.NURSE ---
shift assessment patient lingering at nurses station, assessment performed, pt somewhat tearful... confused about why she is still hospitalized, asking to be discharged today
[2022-07-17] MEDS: ARIPiprazole 30 mg Tablet PO (08:36)
[2022-07-17] MEDS: nicotine 2 mg Gum BUCCAL ×4 (08:36→20:14)
[2022-07-17] MEDS: hyDROXYzine 25 mg Capsule 50 MG PO ×2 (08:37→18:07)
--- NOTE | 2022-07-17 08:38 | PC.NURSE ---
PRN BENADRYL/VISTARIL/HALDOL BENADRYL 50 MG GIVEN PO ALONG WITH VISTARIL 50 MG PO AND HALDOL 5 MG PO PER PT C/O STATED ANXIETY/AGITATION. PT PACING UNIT, PRESSURED SPEECH NOTED, HAS TO BE REDIRECTED OFTEN BY STAFF TO NOT LINGER AT NURSES STATION. OBSESSING ABOUT GETTING DISCHARGED SOON.
[2022-07-17] MEDS: OLANZapine 5 mg ODT PO ×2 (13:43→20:54)
--- NOTE | 2022-07-17 13:43 | PC.NURSE ---
PRN ZYPREXA ZYDIS 5 MG GIVEN PO PER PT C/O AGITATION/ANXIETY. TEARFUL WHILE TALKING TO STAFF, CONSTANTLY LINGERING AT NURSES STATION HAS TO BE REDIRECTED SEVERAL TIMES BY STAFF
[2022-07-17 14:00] VITALS: BP 174/74; PULSE 92; RESP 18; TEMP 36.9; O2SAT 98
--- NOTE | 2022-07-17 16:45 | P.NPUPN_ITS ---
Subjective NPU Subjective: Patient presented today reporting in a roundabout way that she wanted to go home. She continues to be confused and say random comments about skittles and wondering if I was the Manuel to her Bernie. We discussed the fact that apparently 1 day hold per her which she seemed to understand which led to her expressing angry thoughts but still in a confused manner ultimately things moving to diabetes and when I assured her we would take care of her and not allow that to happen she asked this aligner typewriter if I wanted to feel her head so I could feel the aneurysm. Mental Status Exam MSE Comments: This is a slender cachectic white female who appeared older than her stated age in hospital scrubs with poor grooming and intermittent eye contact. Poor dentition. There was no evidence of any abnormal involuntary motor movements appreciated except for occasional psychomotor agitation. Mostly cooperative with exam in mild to extreme distress during the conversation as she was fairly labile. Thought process disorganized with continued periods of odd use of metaphors with clang associations and use of nonsense words. Thought content: Patient did not report suicidal or homicidal ideation, there was evidence of bizarre delusional thinking but none was reported. There was evidence of overvalued ideas, she did not endorse auditory or visual hallucinations. Her attention and concentration remain impaired and memory was unreliable but none were formally tested. She is alert and oriented to person and location but not date. Insight, judgment and impulse control are impaired. Vitals/I&O/Wt Last Vital Signs Temp 98.5 F 07/17/22 14:00 Pulse 97 07/17/22 20:03 Resp 18 07/17/22 20:03 BP 123/89 07/17/22 20:03 Pulse Ox 100 07/17/22 20:03 O2 Del Method 07/17/22 14:00 A&P Assessment and plan (1) Psychosis: (2) Methamphetamine use disorder, severe: (3) Altered mental status: Plan This is a 31-year-old white female who looks notably altered in mental status and a presentation consistent with methamphetamine use who presents with psychosis, confusion emotional dysregulation with significant hyperkinetic activity. 1. Increased abilify to 30mg in am. May consider augmenting with Invega or switching over given her continued significant psychosis. 2. Continue every 15 minute checks for safety. 3. Encourage individual, group and milieu therapies. 4. Encourage sober living treatment after discharge at the highest level of care to which she is willing to commit. Patient in need of inpatient substance abuse treatment. 5. She remains psychotic at this time, KAN testing completed which revealed several concerns regarding patient's ability to safely exist independently without support. 6. Filed for a 21-day hold. Involuntary Hold Information 96 Hour Hold: 96 Hour Involuntary Admission: No Attestations NPU Medical Necessity Statement*: Inpatient hospitalization is medically necessary and the clinically appropriate intervention at this time. We will monitor/initiate medications and make changes as indicated. Likely length of stay 7-14 days. Coding Level of Care Code Acute Reservations Clerk for Briseida Hathaway Diagnoses Psychosis F29 Methamphetamine use disorder, severe F15.20 Altered mental status R41.82
--- NOTE | 2022-07-17 18:07 | PC.NURSE ---
PRN VISTARIL 50 MG GIVEN PO PER PT C/O STATED ANXIETY. RAMBLING PRESSURED SPEECH, TALKING ABOUT HOW SHE HAS BEEN TO [facility], AND SHE HAS TO GET HER BABY DADDY OUT OF [facility] TOO AND THAT HER DAUGHTER TOLD HER TO RUN RUN RUN THROUGH A GAME OF [employer]
[2022-07-17 20:03] VITALS: BP 123/89; PULSE 97; RESP 18; O2SAT 100
[2022-07-17] MEDS: ziprasidone hcl 20 mg Capsule PO (20:53)
[2022-07-17] MEDS: trazodone 50 mg Tablet PO (20:54)
[2022-07-18] MEDS: haloperidol 5 mg Tablet PO ×2 (04:16→19:01)
[2022-07-18] MEDS: diphenhydrAMINE 50 mg Capsule PO ×2 (04:16→19:00)
[2022-07-18] MEDS: acetaminophen 325 mg Tablet 650 MG PO (04:16)
[2022-07-18] MEDS: LORazepam 2 mg Tablet PO ×2 (04:16→19:01)
[2022-07-18] MEDS: haloperidol inj 5 mg/mL INJ 1 mL IM (05:05)
[2022-07-18] MEDS: LORazepam 2 mg/mL INJ 1 mL IM (05:05)
[2022-07-18] MEDS: diphenhydrAMINE 50 mg/mL SDV 1mL IM (05:06)
--- NOTE | 2022-07-18 05:07 | PC.NURSE ---
pt throat red covered in pustule upon assessment by staff. pt provided a mask escorted to her room attempts to educate pt on the importance of keeping in her room or wearing a mask while out of her room. pt extremely manic/ psychotic with aggressive posturting. physicain notifed of medication given orally. verbal order given to repeat medication IM instead of orally.
--- NOTE | 2022-07-18 05:10 | PC.NURSE ---
Patient came to nurses station C/O a sore throat. Observed her throat with a flashlight. Noted patient's throat to be red and appearing inflamed with white pustules on throat and tonsils. Patient was instructed to stay in her room and NOT to come out without a mask on. Patient went to her room and began to escalate in her doris and psychotic behavior. Patient was given an oral B-52 AKA 50mg Benadryl PO, 2mg Atavan PO and 5mg Haldol PO. Patient continued to escalate in her aggressive, manic, psychotic behavior to spite multiple attempts to calm / deescalate her and oral medication. Dr. Park was called, the situation was explained to him including medications that had already administered. Telephone orders received to give the patient an additional B-52 this time intra muscular injections of 50mg Benadryl, 2mg Ativan IM and 5mg Haldol IM. Injection was given at about 05:00. At time of this note medication has been slightly effective with a notable decrease in aggressivenesses.
[2022-07-18 06:00] VITALS: BP 111/80; PULSE 95; RESP 18; TEMP 36.3; O2SAT 96
[2022-07-18 06:48] LABS: Rapid Strep A Test Negative (Negative)
[2022-07-18] MEDS: ibuprofen 600 mg Tablet PO ×2 (08:23→19:01)
[2022-07-18] MEDS: ARIPiprazole 30 mg Tablet PO (08:24)
[2022-07-18] MEDS: blistex lip oint 7 gm Tube 1 APPLIC TOPICAL (08:24)
[2022-07-18] MEDS: ziprasidone hcl 20 mg Capsule PO (08:43)
[2022-07-18 11:30] LABS: Adenovirus Not Detected (NOT DETECT); Chlamydia Pneumoniae Not Detected (NOT DETECT); Coronavirus 229E,HKU1,NL63,OC4 Not Detected (NOT DETECT); Human Metapneumovirus Not Detected (NOT DETECT); Human Rhinovirus/Enterovirus Not Detected (NOT DETECT); Influenza A Not Detected (NOT DETECT); Influenza A H1 Not Detected (NOT DETECT); Influenza A H1-2009 Not Detected (NOT DETECT); Influenza A H3 Not Detected (NOT DETECT); Influenza B Not Detected (NOT DETECT); Mycoplasma Pneumoniae Not Detected (NOT DETECT); Parainfluenza Virus Type 1 Not Detected (NOT DETECT); Parainfluenza Virus Type 2 Not Detected (NOT DETECT); Parainfluenza Virus Type 3 Not Detected (NOT DETECT); Parainfluenza Virus Type 4 Not Detected (NOT DETECT); Respiratory Syncytial Virus A Not Detected (NOT DETECT); Respiratory Syncytial Virus B Not Detected (NOT DETECT); SARS-COV-2 Not Detected (NOT DETECT)
--- NOTE | 2022-07-18 11:32 | P.NPUPN_ITS ---
Subjective NPU Subjective: Patient presented today continuing to struggle with her psychosis. She continued to say strange things like I am her [place] of [place] and talk about her not having a father and crying out of the blue etc. We discussed the fact that I wanted to initiate Invega to see if augmentation or switching would be helpful. Mental Status Exam MSE Comments: This is a slender cachectic white female who appeared older than her stated age in hospital scrubs with poor grooming and intermittent eye contact. Poor dentition. There was no evidence of any abnormal involuntary motor movements appreciated except for occasional psychomotor agitation and other aims behavior. Mostly cooperative with exam in mild to extreme distress during the conversation as she was very labile. Mood not described, affect mercurial. Thought process disorganized with continued periods of odd use of metaphors with clang associations and use of nonsense words. Thought content: Patient did not report suicidal or homicidal ideation, there was evidence of bizarre delusional thinking but none was reported. There was evidence of overvalued ideas, she did not endorse auditory or visual hallucinations. Her attention and concentration remain impaired and memory was unreliable but none were formally tested. She is alert and oriented to person and location but not date. Insight, judgment and impulse control are impaired. Vitals/I&O/Wt Last Vital Signs Temp 97.3 F L 07/18/22 06:00 Pulse 95 07/18/22 06:00 Resp 18 07/18/22 06:00 BP 111/80 07/18/22 06:00 Pulse Ox 96 07/18/22 06:00 O2 Del Method 07/18/22 06:00 A&P Assessment and plan (1) Psychosis: (2) Methamphetamine use disorder, severe: (3) Altered mental status: Plan This is a 31-year-old white female who looks notably altered in mental status and a presentation consistent with methamphetamine use who presents with psychosis, confusion emotional dysregulation with significant hyperkinetic activity. 1. Increased abilify to 30mg in am. May consider augmenting with Invega or switching over given her continued significant psychosis. 2. Continue every 15 minute checks for safety. We will start with a 6 mg dose in the morning. 3. Encourage individual, group and milieu therapies. 4. Encourage sober living treatment after discharge at the highest level of care to which she is willing to commit. Patient in need of inpatient substance abuse treatment. 5. She remains psychotic at this time, KAN testing completed which revealed several concerns regarding patient's ability to safely exist independently without support. 6. Filed for a 21-day hold. Involuntary Hold Information 96 Hour Hold: 96 Hour Involuntary Admission: No Attestations NPU Medical Necessity Statement*: Inpatient hospitalization is medically necessary and the clinically appropriate intervention at this time. We will monitor/initiate medications and make changes as indicated. Likely length of stay 7-14 days. Coding Level of Care Code Acute Reference Test Clerk for Briseida Hathaway Diagnoses Psychosis F29 Methamphetamine use disorder, severe F15.20 Altered mental status R41.82
[2022-07-18] MEDS: nicotine 2 mg Gum BUCCAL ×3 (12:06→19:00)
[2022-07-18 14:00] VITALS: BP 109/76; PULSE 108; RESP 16; TEMP 36.6; O2SAT 98
[2022-07-18] MEDS: benztropine 1 mg Tablet PO (19:01)
[2022-07-18 19:39] VITALS: BP 114/79; PULSE 109; RESP 17; TEMP 36.5; O2SAT 97
[2022-07-18] MEDS: trazodone 50 mg Tablet PO (21:17)
[2022-07-18] MEDS: OLANZapine 5 mg ODT PO (21:17)
[2022-07-19 00:47] LABS: Adenovirus Not Detected (NOT DETECT); Chlamydia Pneumoniae Not Detected (NOT DETECT); Coronavirus 229E,HKU1,NL63,OC4 Not Detected (NOT DETECT); Human Metapneumovirus Not Detected (NOT DETECT); Human Rhinovirus/Enterovirus Not Detected (NOT DETECT); Influenza A Not Detected (NOT DETECT); Influenza A H1 Not Detected (NOT DETECT); Influenza A H1-2009 Not Detected (NOT DETECT); Influenza A H3 Not Detected (NOT DETECT); Influenza B Not Detected (NOT DETECT); Mycoplasma Pneumoniae Not Detected (NOT DETECT); Parainfluenza Virus Type 1 Not Detected (NOT DETECT); Parainfluenza Virus Type 2 Not Detected (NOT DETECT); Parainfluenza Virus Type 3 Not Detected (NOT DETECT); Parainfluenza Virus Type 4 Not Detected (NOT DETECT); Respiratory Syncytial Virus A Not Detected (NOT DETECT); Respiratory Syncytial Virus B Not Detected (NOT DETECT); SARS-COV-2 Not Detected (NOT DETECT)
[2022-07-19] MEDS: haloperidol 5 mg Tablet PO ×2 (03:21→14:18)
[2022-07-19] MEDS: LORazepam 2 mg Tablet PO ×2 (03:21→14:17)
[2022-07-19] MEDS: diphenhydrAMINE 50 mg Capsule PO ×2 (03:21→14:18)
[2022-07-19] MEDS: acetaminophen 325 mg Tablet 650 MG PO (03:37)
[2022-07-19 06:00] VITALS: BP 103/72; PULSE 103; RESP 16; TEMP 36.6; O2SAT 98
[2022-07-19] MEDS: OLANZapine 5 mg ODT PO ×2 (06:39→11:03)
[2022-07-19] MEDS: benztropine 1 mg Tablet PO (07:41)
[2022-07-19] MEDS: ziprasidone hcl 20 mg Capsule PO ×2 (07:41→19:33)
[2022-07-19] MEDS: nicotine 2 mg Gum BUCCAL ×3 (07:41→20:30)
[2022-07-19] MEDS: ibuprofen 600 mg Tablet PO (07:41)
[2022-07-19] MEDS: ARIPiprazole 30 mg Tablet PO (07:41)
[2022-07-19] MEDS: hyDROXYzine 25 mg Capsule 50 MG PO (11:03)
--- NOTE | 2022-07-19 13:44 | P.NPUPN_ITS ---
Subjective NPU Subjective: Patient presents today continuing her erratic behavior. We discussed the risks, benefits and alternatives of initiating Invega 6 mg p.o. every morning and is unclear whether she understood exactly what that meant. To continue her same statements about her father, her children, being etc. Mental Status Exam MSE Comments: This is a slender cachectic white female who appeared older than her stated age in hospital scrubs with poor grooming and intermittent eye contact. Poor dentition. There was no evidence of any abnormal involuntary motor movements appreciated except for occasional psychomotor agitation and other aims behavior. Mostly cooperative with exam in mild to extreme distress during the conversation as she was very labile. Mood not described, affect mercurial. Thought process disorganized with continued periods of odd use of metaphors with clang associations and use of nonsense words. Thought content: Patient did not report suicidal or homicidal ideation, there was evidence of bizarre delusional thinking but none was reported. There was evidence of overvalued ideas, she did not endorse auditory or visual hallucinations. Her attention and concentration remain impaired and memory was unreliable but none were formally tested. She is alert and oriented to person and location but not date. Insight, judgment and impulse control are impaired. Vitals/I&O/Wt Last Vital Signs Temp 97.9 F 07/19/22 06:00 Pulse 103 H 07/19/22 06:00 Resp 16 07/19/22 06:00 BP 103/72 07/19/22 06:00 Pulse Ox 98 07/19/22 06:00 O2 Del Method 07/19/22 06:00 A&P Assessment and plan (1) Psychosis: (2) Methamphetamine use disorder, severe: (3) Altered mental status: Plan This is a 31-year-old white female who looks notably altered in mental status and a presentation consistent with methamphetamine use who presents with psychosis, confusion emotional dysregulation with significant hyperkinetic activity. 1. Increased abilify to 30mg in am. Start Invega 6 mg p.o. every morning. May use augmentation versus switching. 2. Continue every 15 minute checks for safety. We will start with a 6 mg dose in the morning. 3. Encourage individual, group and milieu therapies. 4. Encourage sober living treatment after discharge at the highest level of care to which she is willing to commit. Patient in need of inpatient substance abuse treatment. 5. She remains psychotic at this time, KAN testing completed which revealed several concerns regarding patient's ability to safely exist independently without support. 6. Filed for a 21-day hold. Hearing Thursday at 3 PM. Involuntary Hold Information 96 Hour Hold: 96 Hour Involuntary Admission: No Attestations NPU Medical Necessity Statement*: Inpatient hospitalization is medically necessary and the clinically appropriate intervention at this time. We will monitor/initiate medications and make changes as indicated. Likely length of stay 7-14 days. Coding Level of Care Code Acute Coating Operator for Briseida Hathaway Diagnoses Psychosis F29 Methamphetamine use disorder, severe F15.20 Altered mental status R41.82
[2022-07-19 14:00] VITALS: BP 140/98; PULSE 95; RESP 18; TEMP 36.6; O2SAT 97
[2022-07-19] MEDS: paliperidone ER 6 mg Tablet PO (14:52)
[2022-07-19 19:40] VITALS: BP 114/78; PULSE 98; RESP 17; TEMP 36.4; O2SAT 96
[2022-07-20] MEDS: haloperidol 5 mg Tablet PO (05:12)
[2022-07-20] MEDS: diphenhydrAMINE 50 mg Capsule PO (05:12)
--- NOTE | 2022-07-20 05:16 | PC.NURSE ---
PRN MEDS PT GIVEN 5MG HALDOL, & 50 MG BENADRYL, FOR AGITATION & INSOMNIA, WILL CONTINUE TO MONITOR.
[2022-07-20 06:00] VITALS: BP 122/73; PULSE 100; RESP 20; TEMP 36.8; O2SAT 97
[2022-07-20] MEDS: paliperidone ER 6 mg Tablet PO (08:11)
[2022-07-20] MEDS: ARIPiprazole 30 mg Tablet PO (08:11)
[2022-07-20] MEDS: ziprasidone hcl 20 mg Capsule PO ×2 (08:50→18:53)
[2022-07-20] MEDS: benztropine 1 mg Tablet PO (08:50)
[2022-07-20] MEDS: nicotine 2 mg Gum BUCCAL ×2 (09:18→16:04)
--- NOTE | 2022-07-20 09:19 | PC.NURSE ---
Pt up and about in room and halls with steady gait; good tolerance. Sometimes walks quickly, squats. Very active; run-on speech; tangential. Tearful at times. Redirectable. Pt described her anxiety and depression as large. Rated pain severe then said moderate. Pt appears in no acute distress at this time. Denied thoughts of hurting herself or anyone else. Described her sleep as wally. Said her goal today was to go home. Pt asked for nicotine gum; provided this. Pt used it only for a few minutes then spit it out. Pt aware she couldn't have more for two hours.
--- NOTE | 2022-07-20 10:53 | W.PM.NPUPNS ---
Subjective NPU Subjective: Patient presented today with continued disorganization and rhyming talk. She continued to have moments that she was seeming happy and bouncing around and within moments having tears and talking about or not knowing her dad. We discussed the fact that we initiated the Invega and awaiting hopefully improvement. Otherwise there were no changes in she continues to struggle with sleep but is eating fine. Mental Status Exam MSE Comments: This is a slender cachectic white female who appeared older than her stated age in hospital scrubs with poor grooming and intermittent eye contact. Poor dentition. There was no evidence of any abnormal involuntary motor movements appreciated except for occasional psychomotor agitation and other aimless behavior. Mostly cooperative with exam in mild to extreme distress during the conversation as she was very labile. Mood not described, affect mercurial. Thought process disorganized with continued periods of odd use of metaphors with clang associations and use of nonsense words. Thought content: Patient did not report suicidal or homicidal ideation, there was evidence of bizarre delusional thinking but none was reported. There was evidence of overvalued ideas, she did not endorse auditory or visual hallucinations. Her attention and concentration remain impaired and memory was unreliable but none were formally tested. She is alert and oriented to person and location but not date. Insight, judgment and impulse control are impaired. Vitals/I&O/Wt Last Vital Signs Temp 98.2 F 07/20/22 06:00 Pulse 100 07/20/22 06:00 Resp 20 H 07/20/22 06:00 BP 122/73 07/20/22 06:00 Pulse Ox 97 07/20/22 06:00 O2 Del Method 07/20/22 06:00 Weight last 48 hrs Weight 67.313 kg Data NPU Micro: Microbiology 07/18/22 06:18 Group A Streptococcus Rapid Screen - Preliminary Throat Microbiology 07/18/22 06:18 Throat Group A Streptococcus Rapid Screen - Preliminary A&P Assessment and plan (1) Psychosis: (2) Methamphetamine use disorder, severe: (3) Altered mental status: Plan This is a 31-year-old white female who looks notably altered in mental status and a presentation consistent with methamphetamine use who presents with psychosis, confusion emotional dysregulation with significant hyperkinetic activity. 1. Increased abilify to 30mg in am. Started Invega 6 mg p.o. every morning. May use augmentation versus switching. 2. Continue every 15 minute checks for safety. We will start with a 6 mg dose in the morning. 3. Encourage individual, group and milieu therapies. 4. Encourage sober living treatment after discharge at the highest level of care to which she is willing to commit. Patient in need of inpatient substance abuse treatment. 5. She remains psychotic at this time, KAN testing completed which revealed several concerns regarding patient's ability to safely exist independently without support. 6. Filed for a 21-day hold. Hearing Thursday at 3 PM. Involuntary Hold Information 96 Hour Hold: 96 Hour Involuntary Admission: No Attestations NPU Medical Necessity Statement*: Inpatient hospitalization is medically necessary and the clinically appropriate intervention at this time. We will monitor/initiate medications and make changes as indicated. Likely length of stay 7-14 days. Coding Level of Care Code Acute Aerospace Engineer Officer Armament for Briseida Hathaway Diagnoses Psychosis F29 Methamphetamine use disorder, severe F15.20 Altered mental status R41.82
[2022-07-20] MEDS: hyDROXYzine 25 mg Capsule 50 MG PO (11:11)
[2022-07-20] MEDS: OLANZapine 5 mg ODT PO (11:11)
--- NOTE | 2022-07-20 11:13 | PC.NURSE ---
Pt becoming more agitated and loud. Medicated with zyprexa and Vistaril.
[2022-07-20] MEDS: ibuprofen 600 mg Tablet PO (12:10)
[2022-07-20 14:00] VITALS: BP 137/86; PULSE 121; RESP 18; TEMP 36.9; O2SAT 95
[2022-07-20] MEDS: haloperidol inj 5 mg/mL INJ 1 mL IM (16:47)
[2022-07-20] MEDS: LORazepam 2 mg/mL INJ 1 mL IM (16:47)
[2022-07-20] MEDS: diphenhydrAMINE 50 mg/mL SDV 1mL IM (16:47)
--- NOTE | 2022-07-20 16:53 | PC.NURSE ---
PT CONTINUOUSLY UP IN THE [place]LESTER[place] RUNNING AND ATTEMPTING TO ELOPE. PT IS LOUD AND UNABLE TO BE REDIRECTED ON MULTIPLE OCCASIONS. PT WAS GIVEN HALDOL, BENADRYL, AND ATIVAN IM. PT IS NOW UP BY THE NURSES STATION.
--- NOTE | 2022-07-20 20:00 | PC.NURSE ---
AT APPROXIMATELY 1845, PT NOTED TO BE UP AT NURSES DESK YELLING AND RANTING. PT HAD JUST TAKEN A PHONE CALL THAT UP SET HER. PT NOTED TO BE HAVING A MANIC EPISODE, PT GIVEN GEODON 20MG PO.
[2022-07-20 21:26] VITALS: BP 117/83; PULSE 121; RESP 18; TEMP 36.3; O2SAT 97
--- NOTE | 2022-07-20 22:00 | PC.NURSE ---
PT IN ROOM RESTING QUIETLY WITH BOTH EYES CLOSED.
[2022-07-21 06:00] VITALS: RESP 16
[2022-07-21] MEDS: hyDROXYzine 25 mg Capsule 50 MG PO ×2 (06:21→08:02)
[2022-07-21] MEDS: ARIPiprazole 30 mg Tablet PO (08:01)
[2022-07-21] MEDS: paliperidone ER 6 mg Tablet PO (08:01)
[2022-07-21] MEDS: nicotine 2 mg Gum BUCCAL ×2 (08:03→16:14)
--- NOTE | 2022-07-21 08:19 | PC.NURSE ---
Cannot complete mental assessment of patient because she is acting too erratic this morning and when asked a question she will begin to answer it, but then wander off into a completely different topic. Patient is consistently saying, are you for me? Can you call Venus, because I can't go to court without Venus? I'm in between. I don't like the tv. You're his good morning. She continues to raise her arms, point, rhyme words together that are unrelated, and begins singing small parts of different songs. Her behavior and affect fluctuates quickly and several times within a minute's time. This RN continued to try to redirect the patient multiple times, but she could not be redirected. Patient given 50 mg hydroxyzine.
[2022-07-21] MEDS: benztropine 1 mg Tablet PO (11:26)
[2022-07-21] MEDS: LORazepam 2 mg Tablet PO (11:26)
[2022-07-21] MEDS: haloperidol 5 mg Tablet PO (11:26)
[2022-07-21] MEDS: diphenhydrAMINE 50 mg Capsule PO (11:26)
[2022-07-21] MEDS: ibuprofen 600 mg Tablet PO (11:27)
--- NOTE | 2022-07-21 13:22 | W.PM.NPUPNS ---
Subjective NPU Subjective: Patient presents today with fundamentally no changes in her psychosis or confusion. We discussed the plan that her 21-day hold hearing was today at 3 PM. She reported she wanted to go to the hearing. She continued aimless conversation talking about [place] [employer] [place]. Skittles etc. with no significant changes. I explained the hearing process and what I would say but is unclear if she really understood Mental Status Exam MSE Comments: This is a slender cachectic white female who appeared older than her stated age in hospital scrubs with poor grooming and intermittent eye contact. Poor dentition. There was no evidence of any abnormal involuntary motor movements appreciated except for occasional psychomotor agitation and other aimless behavior. Mostly cooperative with exam in mild to extreme distress during the conversation as she was very labile. Mood not described, affect mercurial. Thought process disorganized with continued periods of odd use of metaphors with clang associations and use of nonsense words. Thought content: Patient did not report suicidal or homicidal ideation, there was evidence of bizarre delusional thinking but none was reported. There was evidence of overvalued ideas, she did not endorse auditory or visual hallucinations. Her attention and concentration remain impaired and memory was unreliable but none were formally tested. She is alert and oriented to person and location but not date. Insight, judgment and impulse control are impaired. Vitals/I&O/Wt Last Vital Signs Temp 97.4 F L 07/20/22 21:26 Pulse 121 H 07/20/22 21:26 Resp 16 07/21/22 06:00 BP 117/83 07/20/22 21:26 Pulse Ox 97 07/20/22 21:26 O2 Del Method 07/20/22 06:00 Weight last 48 hrs Weight 67.313 kg Data NPU Micro: Microbiology 07/18/22 06:18 Group A Streptococcus Rapid Screen - Final Throat Microbiology 07/18/22 06:18 Throat Group A Streptococcus Rapid Screen - Final A&P Assessment and plan (1) Psychosis: (2) Methamphetamine use disorder, severe: (3) Altered mental status: Plan This is a 31-year-old white female who looks notably altered in mental status and a presentation consistent with methamphetamine use who presents with psychosis, confusion emotional dysregulation with significant hyperkinetic activity. 1. Increased abilify to 30mg in am. Started Invega 6 mg p.o. every morning. May use augmentation versus switching. 2. Continue every 15 minute checks for safety. We will start with a 6 mg dose in the morning. 3. Encourage individual, group and milieu therapies. 4. Encourage sober living treatment after discharge at the highest level of care to which she is willing to commit. Patient in need of inpatient substance abuse treatment. 5. She remains psychotic at this time, KAN testing completed which revealed several concerns regarding patient's ability to safely exist independently without support. 6. Filed for a 21-day hold. Hearing today at 3 PM. Involuntary Hold Information 96 Hour Hold: 96 Hour Involuntary Admission: No Attestations NPU Medical Necessity Statement*: Inpatient hospitalization is medically necessary and the clinically appropriate intervention at this time. We will monitor/initiate medications and make changes as indicated. Likely length of stay 7-14 days. Coding Level of Care Code Acute Solar Electric/Photovoltaic Installer for Briseida Hathaway Diagnoses Psychosis F29 Methamphetamine use disorder, severe F15.20 Altered mental status R41.82
[2022-07-21 14:00] VITALS: BP 119/75; PULSE 118; RESP 18; TEMP 36.8; O2SAT 95
[2022-07-21] MEDS: OLANZapine 5 mg ODT PO (16:41)
[2022-07-21] MEDS: diphenhydrAMINE 50 mg/mL SDV 1mL IM (19:03)
[2022-07-21] MEDS: LORazepam 2 mg/mL INJ 1 mL IM (19:03)
[2022-07-21] MEDS: haloperidol inj 5 mg/mL INJ 1 mL IM (19:03)
[2022-07-21 22:00] VITALS: BP 107/74; PULSE 107; RESP 22; TEMP 36.8; O2SAT 97
--- NOTE | 2022-07-22 04:45 | PC.NURSE ---
Patient up at nurse's station. Patient labile. Tearful one moment then yelling nonsensical things. Attempted to redirect but patient continued to be loud. Offered several interventions but patient would not calm down. JOSE chanel offered at that time. Cooperative with administration. Staff spent several minutes with patient in an attempt to redirect patient to room. Patient eventually returned to room after several minutes.
[2022-07-22] MEDS: ziprasidone hcl 20 mg Capsule PO ×3 (04:50→18:44)
[2022-07-22] MEDS: nicotine 2 mg Gum BUCCAL ×3 (05:51→18:22)
[2022-07-22 06:00] VITALS: RESP 18
--- NOTE | 2022-07-22 07:02 | PC.NURSE ---
Patient resting quietly in bed with eyes closed at this time. No further bx since PRN administration.
[2022-07-22] MEDS: ARIPiprazole 30 mg Tablet PO (08:08)
[2022-07-22] MEDS: hyDROXYzine 25 mg Capsule 50 MG PO (08:08)
[2022-07-22] MEDS: paliperidone ER 6 mg Tablet PO (08:08)
[2022-07-22 14:00] VITALS: BP 121/84; PULSE 104; RESP 18; TEMP 36.5; O2SAT 100
[2022-07-22] MEDS: OLANZapine 5 mg ODT PO ×2 (14:05→20:12)
[2022-07-22] MEDS: haloperidol 5 mg Tablet PO (15:14)
[2022-07-22] MEDS: diphenhydrAMINE 50 mg Capsule PO (15:14)
[2022-07-22] MEDS: LORazepam 2 mg Tablet PO (15:14)
--- NOTE | 2022-07-22 16:21 | P.NPUPN_ITS ---
Subjective NPU Subjective: Patient presented today continuing to have significant disorganization, clang associations aimless behavior and bizarre talk. No major changes but no reports of a side effects or problems with the medication. Mental Status Exam MSE Comments: This is a slender cachectic white female who appeared older than her stated age in hospital scrubs with poor grooming and intermittent eye contact. Poor dentition. There was no evidence of any abnormal involuntary motor movements appreciated except for occasional psychomotor agitation and other aimless behavior. Mostly cooperative with exam in mild to extreme distress during the conversation as she was very labile. Mood not described, affect mercurial. Thought process disorganized with continued periods of odd use of metaphors with clang associations and use of nonsense words. Thought content: Patient did not report suicidal or homicidal ideation, there was evidence of bizarre delusional thinking but none was reported. There was evidence of overvalued ideas, she did not endorse auditory or visual hallucinations. Her attention and concentration remain impaired and memory was unreliable but none were formally tested. She is alert and oriented to person and location but not date. Insight, judgment and impulse control are impaired. Vitals/I&O/Wt Last Vital Signs Temp 97.7 F 07/22/22 22:00 Pulse 102 H 07/22/22 22:00 Resp 16 07/22/22 22:00 BP 100/70 07/22/22 22:00 Pulse Ox 97 07/22/22 22:00 O2 Del Method 07/22/22 22:00 A&P Assessment and plan (1) Psychosis: (2) Methamphetamine use disorder, severe: (3) Altered mental status: Plan This is a 31-year-old white female who looks notably altered in mental status and a presentation consistent with methamphetamine use who presents with psychosis, confusion emotional dysregulation with significant hyperkinetic activity. 1. Increased abilify to 30mg in am. Started Invega 6 mg p.o. every morning. May use augmentation versus switching. 2. Continue every 15 minute checks for safety. 3. Encourage individual, group and milieu therapies. 4. Encourage sober living treatment after discharge at the highest level of care to which she is willing to commit. Patient in need of inpatient substance abuse treatment. 5. She remains psychotic at this time, KAN testing completed which revealed several concerns regarding patient's ability to safely exist independently with out support. 6. Filed for a 21-day hold. Hearing today at 3 PM. Involuntary Hold Information 96 Hour Hold: 96 Hour Involuntary Admission: No Attestations NPU Medical Necessity Statement*: Inpatient hospitalization is medically necessary and the clinically appropriate intervention at this time. We will monitor/initiate medications and make changes as indicated. Likely length of stay 7-14 days. Coding Level of Care Code Acute Bellmaker for [facility] Diagnoses Psychosis F29 Methamphetamine use disorder, severe F15.20 Altered mental status R41.82
[2022-07-22] MEDS: nicotine 4 mg lozenge MUCOUS MEM (21:23)
[2022-07-22 22:00] VITALS: BP 100/70; PULSE 102; RESP 16; TEMP 36.5; O2SAT 97
--- NOTE | 2022-07-23 05:50 | PC.NURSE ---
Patient at nurse's station and very labile. Tearful one moment and angry the next. Attempted to redirect and offer interventions but patient continued to have inappropriate behavior. PRN Zyprexa offered and administered without difficulty. Staff then spent several minutes attempting to redirect and calm patient down after medication administration.
[2022-07-23] MEDS: OLANZapine 5 mg ODT PO ×3 (05:54→21:54)
[2022-07-23] MEDS: nicotine 2 mg Gum BUCCAL ×4 (05:57→21:04)
[2022-07-23 06:00] VITALS: BP 100/61; PULSE 106; RESP 17; TEMP 36.8; O2SAT 98
--- NOTE | 2022-07-23 07:32 | PC.NURSE ---
shift assessment lingering at nurses station...rapid pressured speech noted, looked at this nurse saying you are my grandma .... when asked if she was SI/HI pt stated if I dont get out today everybody will . tearful after saying that...staff will cont to monitor and redirect as needed
[2022-07-23] MEDS: paliperidone ER 6 mg Tablet PO (08:30)
[2022-07-23] MEDS: ARIPiprazole 30 mg Tablet PO (08:30)
--- NOTE | 2022-07-23 09:09 | PC.NURSE ---
PRN ZYPREXA ZYDIS 5 MG GIVEN PO PER PT REQUEST OF SOMETHING TO HELP! PT CONT TO PACE AT NURSES STATION, TEARFUL AT TIMES, MUCH REDIRECTION PROVIDED BY STAFF. INCREASED ANXIETY, RAPID PRESSURED SPEECH NOTED.
--- NOTE | 2022-07-23 11:51 | P.NPUPN_ITS ---
Subjective NPU Subjective: Patient presented today with continued aims behavior and communication. Continue to have labile behavior going from happy to distraught in seconds. No clear reports of any changes. We discussed the possibility of adding a mood stabilizer like Depakote or lithium. It is unclear if she really understands what we are talking about. Mental Status Exam MSE Comments: This is a slender cachectic white female who appeared older than her stated age in hospital scrubs with poor grooming and intermittent eye contact. Poor dentition. There was no evidence of any abnormal involuntary motor movements appreciated except for occasional psychomotor agitation and other aimless behavior. Mostly cooperative with exam in mild to extreme distress during the conversation as she was very labile. Mood not described, affect mercurial. Thought process disorganized with continued periods of odd use of metaphors with clang associations and use of nonsense words. Thought content: Patient did not report suicidal or homicidal ideation, there was evidence of bizarre delusional thinking but none was reported. There was evidence of overvalued ideas, she did not endorse auditory or visual hallucinations. Her attention and concentration remain impaired and memory was unreliable but none were formally tested. She is alert and oriented to person and location but not date. Insight, judgment and impulse control are impaired. Vitals/I&O/Wt Last Vital Signs Temp 98.2 F 07/23/22 06:00 Pulse 106 H 07/23/22 06:00 Resp 17 07/23/22 06:00 BP 100/61 07/23/22 06:00 Pulse Ox 98 07/23/22 06:00 O2 Del Method 07/23/22 06:00 A&P Assessment and plan (1) Psychosis: (2) Methamphetamine use disorder, severe: (3) Altered mental status: Plan This is a 31-year-old white female who looks notably altered in mental status and a presentation consistent with methamphetamine use who presents with psychosis, confusion emotional dysregulation with significant hyperkinetic activity. 1. Increased abilify to 30mg in am. Started Invega 6 mg p.o. every morning. May use augmentation versus switching. May look to add either lithium or Depakote. 2. Continue every 15 minute checks for safety. 3. Encourage individual, group and milieu therapies. 4. Encourage sober living treatment after discharge at the highest level of care to which she is willing to commit. Patient in need of inpatient substance abuse treatment. 5. She remains psychotic at this time, KAN testing completed which revealed several concerns regarding patient's ability to safely exist independently without support. 6. 21-day hold granted. Likely need for guardianship noted. Involuntary Hold Information 96 Hour Hold: 96 Hour Involuntary Admission: No Attestations NPU Medical Necessity Statement*: Inpatient hospitalization is medically necessary and the clinically appropriate intervention at this time. We will monitor/initiate medications and make changes as indicated. Likely length of stay 10-18 days. Coding Level of Care Code Acute Enlisted Aircrew/Aerial Observer/Gunner for Briseida Estrellad Diagnoses Psychosis F29 Methamphetamine use disorder, severe F15.20 Altered mental status R41.82
[2022-07-23] MEDS: hyDROXYzine 25 mg Capsule 50 MG PO (12:17)
--- NOTE | 2022-07-23 12:17 | PC.NURSE ---
PRN VISTARIL 50 MG GIVEN PO PER PT C/O ANXIETY, TEARFUL, PACING HALLWAYS, PRESSURED SPEECH CONTINUES
[2022-07-23 14:00] VITALS: BP 148/92; PULSE 108; RESP 18; TEMP 36.6; O2SAT 99
[2022-07-23 20:21] VITALS: BP 119/83; PULSE 102; RESP 18; TEMP 37; O2SAT 98
[2022-07-23] MEDS: haloperidol 5 mg Tablet PO (20:47)
[2022-07-23] MEDS: diphenhydrAMINE 50 mg Capsule PO (20:47)
[2022-07-23] MEDS: LORazepam 2 mg Tablet PO (20:47)
[2022-07-23] MEDS: trazodone 50 mg Tablet PO (21:54)
[2022-07-24 06:00] VITALS: BP 120/82; PULSE 112; RESP 17; TEMP 37.1; O2SAT 96
[2022-07-24] MEDS: ibuprofen 600 mg Tablet PO ×2 (06:00→14:58)
[2022-07-24] MEDS: haloperidol 5 mg Tablet PO ×2 (07:05→20:30)
[2022-07-24] MEDS: diphenhydrAMINE 50 mg Capsule PO ×2 (07:05→20:30)
[2022-07-24] MEDS: LORazepam 2 mg Tablet PO ×2 (07:05→20:30)
--- NOTE | 2022-07-24 07:07 | PC.NURSE ---
pt up at nurses station crying unable to find herself, wanting medication to help find herself.administered prn medication to assist pt with her anxiety.
[2022-07-24] MEDS: ARIPiprazole 30 mg Tablet PO (09:00)
[2022-07-24] MEDS: paliperidone ER 6 mg Tablet PO (09:00)
[2022-07-24] MEDS: nicotine 2 mg Gum BUCCAL ×2 (09:00→16:48)
[2022-07-24] MEDS: hyDROXYzine 25 mg Capsule 50 MG PO ×3 (11:33→21:10)
[2022-07-24] MEDS: OLANZapine 5 mg ODT PO ×2 (11:33→18:17)
[2022-07-24 14:00] VITALS: BP 103/72; PULSE 102; RESP 18; TEMP 36.8; O2SAT 98
[2022-07-24] MEDS: metroNIDAZOLE 500 MG Tablet PO (14:40)
--- NOTE | 2022-07-24 16:21 | PC.NURSE ---
Contacted pharmacy about 1800 dose of Flagyl scheduled for tonight as just had a dose at 1440. They said it would be too close together and to clarify the order with the MD. Dr. Park notified. He said to hold the second dose tonight and start the BID schedule tomorrow. Orders adjusted for this.
[2022-07-24] MEDS: ziprasidone hcl 20 mg Capsule PO (16:48)
[2022-07-24] MEDS: acetaminophen 325 mg Tablet 650 MG PO (16:48)
--- NOTE | 2022-07-24 18:00 | P.NPUPN_ITS ---
Subjective NPU Subjective: Patient presented today continuing to have flight of ideas, clang associations and aimless behavior. However, she did get her first good night of sleep last night and had periods during the day where she seemed to not be revved as she has during her whole stay. Still had clear confusion and nonsensical conversation but possibly signs of improvement. Mental Status Exam MSE Comments: This is a slender cachectic white female who appeared older than her stated age in hospital scrubs with poor grooming and intermittent eye contact. Poor dentition. There was no evidence of any abnormal involuntary motor movements appreciated except for occasional psychomotor agitation and other aimless behavior, with possible signs of improvement. Mostly cooperative with exam in mild to moderate distress during the conversation as she was labile but mildly less. Mood not described, affect mercurial. Thought process disorganized with continued periods of odd use of metaphors with clang associations and use of nonsense words. Thought content: Patient did not report suicidal or homicidal ideation, there was evidence of bizarre delusional thinking but none was reported. There was evidence of overvalued ideas, she did not endorse auditory or visual hallucinations. Her attention and concentration remain impaired, but improving and memory was unreliable but none were formally tested. She is alert and oriented to person and location but not date. Insight, judgment and impulse control are impaired. Vitals/I&O/Wt Last Vital Signs Temp 98.1 F 07/24/22 20:12 Pulse 102 H 07/24/22 20:12 Resp 16 07/24/22 20:12 BP 109/77 07/24/22 20:12 Pulse Ox 98 07/24/22 20:12 O2 Del Method 07/24/22 06:00 A&P Assessment and plan (1) Psychosis: (2) Methamphetamine use disorder, severe: (3) Altered mental status: Plan This is a 31-year-old white female who looks notably altered in mental status and a presentation consistent with methamphetamine use who presents with psychosis, confusion emotional dysregulation with significant hyperkinetic activity. 1. Increased abilify to 30mg in am. Started Invega 6 mg p.o. every morning. May use augmentation versus switching. May look to add either lithium or Depakote. 2. Continue every 15 minute checks for safety. 3. Encourage individual, group and milieu therapies. 4. Encourage sober living treatment after discharge at the highest level of c are to which she is willing to commit. Patient in need of inpatient substance abuse treatment. 5. She remains psychotic at this time, KAN testing completed which revealed several concerns regarding patient's ability to safely exist independently without support. 6. 21-day hold granted. Likely need for guardianship noted. Involuntary Hold Information 96 Hour Hold: 96 Hour Involuntary Admission: No Attestations NPU Medical Necessity Statement*: Inpatient hospitalization is medically necessary and the clinically appropriate intervention at this time. We will monitor/initiate medications and make changes as indicated. Likely length of stay 10-18 days. Coding Level of Care Code Acute Automotive Service Writer for Briseida Fwd Diagnoses Psychosis F29 Methamphetamine use disorder, severe F15.20 Altered mental status R41.82
[2022-07-24 20:12] VITALS: BP 109/77; PULSE 102; RESP 16; TEMP 36.7; O2SAT 98
[2022-07-24] MEDS: trazodone 50 mg Tablet PO ×2 (21:11→23:05)
[2022-07-24] MEDS: nicotine 4 mg lozenge MUCOUS MEM (21:11)
[2022-07-25] MEDS: ibuprofen 600 mg Tablet PO (05:18)
[2022-07-25 06:00] VITALS: BP 97/65; PULSE 102; RESP 18; TEMP 36.6; O2SAT 99
[2022-07-25] MEDS: OLANZapine 5 mg ODT PO ×3 (06:38→20:02)
[2022-07-25] MEDS: hyDROXYzine 25 mg Capsule 50 MG PO (06:38)
[2022-07-25] MEDS: paliperidone ER 6 mg Tablet PO (07:40)
[2022-07-25] MEDS: ARIPiprazole 30 mg Tablet PO (07:40)
--- NOTE | 2022-07-25 07:47 | PC.NURSE ---
shift assessment pacing unit, lingering around hallway, rapid pressured speech, stated she isn't suicidal or homicidal, but seems to be hallucinating...looking up and talking to the ceiling about her daughter...will cont to monitor.
--- NOTE | 2022-07-25 10:32 | PC.NURSE ---
PRN ZYPREXA ZYDIS 5 MG GIVEN PO PER PT C/O ANXIETY/AGITATION/PSYCHOSIS. PT CONT TO PACE AND LINGER AT NURSES STATION, RAPID PRESSURED SPEECH NOTED. TEARFUL, TALKING ABOUT HER PEOPLE ASKING STAFF TO HELP HER FIND HER PEOPLE
[2022-07-25] MEDS: nicotine 2 mg Gum BUCCAL (11:06)
--- NOTE | 2022-07-25 12:14 | W.PM.NPUPNS ---
Subjective NPU Subjective: Patient presents today continuing to show signs of slowing down a bit directly but having a clearly worse day than yesterday. Some slip noted from the positive aspects yesterday. We discussed seeing how she does tomorrow before likely increasing the Invega. She continues to be mostly nonsensical and aimless but some goal-directed behavior towards trying to be discharged. Mental Status Exam MSE Comments: This is a slender cachectic white female who appeared older than her stated age in hospital scrubs with poor grooming and intermittent eye contact. Poor dentition. There was no evidence of any abnormal involuntary motor movements appreciated except for occasional psychomotor agitation and other aimless behavior, with possible signs of improvement. Mostly cooperative with exam in mild to moderate distress during the conversation as she was labile but mildly less. Mood not described, affect mercurial. Thought process disorganized with continued periods of odd use of metaphors with clang associations and use of nonsense words. Thought content: Patient did not report suicidal or homicidal ideation, there was evidence of bizarre delusional thinking but none was reported. There was evidence of overvalued ideas, she did not endorse auditory or visual hallucinations. Her attention and concentration remain impaired, but improving and memory was unreliable but none were formally tested. She is alert and oriented to person and location but not date. Insight, judgment and impulse control are impaired. Vitals/I&O/Wt Last Vital Signs Temp 97.8 F 07/25/22 06:00 Pulse 102 H 07/25/22 06:00 Resp 18 07/25/22 06:00 BP 97/65 07/25/22 06:00 Pulse Ox 99 07/25/22 06:00 O2 Del Method 07/24/22 06:00 A&P Assessment and plan (1) Psychosis: (2) Methamphetamine use disorder, severe: (3) Altered mental status: Plan This is a 31-year-old white female who looks notably altered in mental status and a presentation consistent with methamphetamine use who presents with psychosis, confusion emotional dysregulation with significant hyperkinetic activity. 1. Increased abilify to 30mg in am. Started Invega 6 mg p.o. every morning and consider increase tomorrow. May use augmentation versus switching. May look to add either lithium or Depakote. 2. Continue every 15 minute checks for safety. 3. Encourage individual, group and milieu therapies. 4. Encourage sober living treatment after discharge at the highest level of care to which she is willing to commit. Patient in need of inpatient substance abuse treatment. 5. She remains psychotic at this time, KAN testing completed which revealed several concerns regarding patient's ability to safely exist independently without support. 6. 21-day hold granted. Likely need for guardianship noted. Involuntary Hold Information 96 Hour Hold: 96 Hour Involuntary Admission: No Attestations NPU Medical Necessity Statement*: Inpatient hospitalization is medically necessary and the clinically appropriate intervention at this time. We will monitor/initiate medications and make changes as indicated. Likely length of stay 10-18 days. Coding Level of Care Code Acute Senior Software Project Manager for Briseida Hathaway Diagnoses Psychosis F29 Methamphetamine use disorder, severe F15.20 Altered mental status R41.82
[2022-07-25] MEDS: LORazepam 2 mg/mL INJ 1 mL IM (13:48)
[2022-07-25] MEDS: diphenhydrAMINE 50 mg/mL SDV 1mL IM (13:48)
[2022-07-25] MEDS: haloperidol inj 5 mg/mL INJ 1 mL IM (13:48)
--- NOTE | 2022-07-25 13:48 | PC.NURSE ---
PRN ATIVAN/HALDOL/BENADRYL ATIVAN 2 MG GIVEN IM WITH HALDOL 5 MG IM IN RIGHT DELTOID PER PT C/O INCREASED AGITATION/AGGRESSION ALONG WITH BENADRYL 50 MG IM IN LEFT DELTOID. PT AGITATED AFTER CONVERSATION WITH PHYSICIAN. WAS TOLD SHE WOULD NOT BE DISCHARGED TODAY, YELLED AT PHYSICIAN WELL YOU KNOW WHAT, I AM NOT HAPPY ABOUT IT. RAN DOWN THE HALLWAY TOWTOOK INJECTIONS WITHOUT INCIDENT, WILL CONT TO MONITOR FOR DESIRED MED EFFECTIVENESS.
[2022-07-25 14:00] VITALS: BP 110/74; PULSE 80; RESP 18; TEMP 36.6; O2SAT 97
[2022-07-25] MEDS: haloperidol 5 mg Tablet PO (20:01)
[2022-07-25] MEDS: metroNIDAZOLE 500 MG Tablet PO (20:01)
[2022-07-25] MEDS: LORazepam 2 mg Tablet PO (20:01)
[2022-07-25] MEDS: diphenhydrAMINE 50 mg Capsule PO (20:01)
[2022-07-25] MEDS: trazodone 50 mg Tablet PO (20:02)
[2022-07-25 20:56] VITALS: BP 128/57; PULSE 90; RESP 16; O2SAT 100
[2022-07-26] MEDS: ibuprofen 600 mg Tablet PO ×3 (04:18→17:24)
[2022-07-26 06:00] VITALS: RESP 19
[2022-07-26] MEDS: ARIPiprazole 30 mg Tablet PO (08:08)
[2022-07-26] MEDS: paliperidone ER 6 mg Tablet PO (08:08)
[2022-07-26] MEDS: metroNIDAZOLE 500 MG Tablet PO ×2 (08:08→21:19)
[2022-07-26] MEDS: ziprasidone hcl 20 mg Capsule PO ×2 (08:42→21:19)
--- NOTE | 2022-07-26 08:45 | PC.NURSE ---
Patient Behavior Patient tearful, pacing, talking about manuel and her skittles. Between statements about them, she will sing and dance to random songs and then drop to the floor on all fours and hop like a frog. Geodon 20mg given PO.
[2022-07-26] MEDS: OLANZapine 5 mg ODT PO ×3 (09:29→20:00)
--- NOTE | 2022-07-26 09:30 | PC.NURSE ---
Patient Behavior Patient continues with bizarre and erratic behavior. Patient talking with other patient, calmly. Will get up and start walking down the benítez and begin crying. Patient doing cheerleading moves and then calls staff mom. Patient's mood will shift from smiling to sobbing in seconds. Zyprexa 5mg given PO.
--- NOTE | 2022-07-26 10:35 | P.NPUPN_ITS ---
Subjective NPU Subjective: Patient presented today continuing to have significant confusion and aimless behavior. We continued the antibiotic for the STD and discussed increasing her Invega towards dose maximization. It is unclear how much she understood this conversation. Mental Status Exam MSE Comments: This is a slender cachectic white female who appeared older than her stated age in hospital scrubs with poor grooming and intermittent eye contact. Poor dentition. There was no evidence of any abnormal involuntary motor movements appreciated except for occasional psychomotor agitation and other aimless behavior, with possible signs of improvement. Mostly cooperative with exam in mild to moderate distress during the conversation as she was labile but mildly less. Mood not described, affect mercurial. Thought process disorganized with continued periods of odd use of metaphors with clang associations and use of nonsense words. Thought content: Patient did not report suicidal or homicidal ideation, there was evidence of bizarre delusional thinking but none was reported. There was evidence of overvalued ideas, she did not endorse auditory or visual hallucinations. Her attention and concentration remain impaired, but improving and memory was unreliable but none were formally tested. She is alert and oriented to person and location but not date. Insight, judgment and impulse control are impaired. Vitals/I&O/Wt Last Vital Signs Temp 97.9 F 07/25/22 14:00 Pulse 90 07/25/22 20:56 Resp 19 H 07/26/22 06:00 BP 128/57 07/25/22 20:56 Pulse Ox 100 07/25/22 20:56 O2 Del Method 07/25/22 14:00 A&P Assessment and plan (1) Psychosis: (2) Methamphetamine use disorder, severe: (3) Altered mental status: Plan This is a 31-year-old white female who looks notably altered in mental status and a presentation consistent with methamphetamine use who presents with psychosis, confusion emotional dysregulation with significant hyperkinetic activity. 1. Increased abilify to 30mg in am. Started Invega 6 mg p.o. every morning we will increase to 9 mg. May use augmentation versus switching. May look to add either lithium or Depakote. Continued Flagyl twice daily for total of 7 days for trichomonas. 2. Continue every 15 minute checks for safety. 3. Encourage individual, group and milieu therapies. 4. Encourage sober living treatment after discharge at the highest level of care to which she is willing to commit. Patient in need of inpatient substance abuse treatment. 5. She remains psychotic at this time, KAN testing completed which revealed several concerns regarding patient's ability to safely exist independently without support. 6. 21-day hold granted. Likely need for guardianship noted. Involuntary Hold Information 96 Hour Hold: 96 Hour Involuntary Admission: No Attestations NPU Medical Necessity Statement*: Inpatient hospitalization is medically necessary and the clinically appropriate intervention at this time. We will monitor/initiate medications and make changes as indicated. Likely length of stay 10-18 days. Coding Level of Care Code Acute Air Quality Instrument Specialist for Briseida Hathaway Diagnoses Psychosis F29 Methamphetamine use disorder, severe F15.20 Altered mental status R41.82
[2022-07-26] MEDS: haloperidol 5 mg Tablet PO ×3 (10:58→20:00)
--- NOTE | 2022-07-26 11:25 | PC.NURSE ---
Patient Behavior All previous behavior continues. Patient pacing the benítez, in and out of bed. Patient refers to her kids as skittles. States that one of them is missing, States i just know it . Unable to redirect or distract patient. Patient continues to cry and pace. Haldol 5mg given PO.
--- NOTE | 2022-07-26 11:27 | PC.NURSE ---
Patient Behavior Patient somewhat calmer. No longer crying. Patient just at the nurses station asking for milk for her coffee. This is the first complete sentence patient has said in correct context this morning. Will continue to monitor.
--- NOTE | 2022-07-26 11:34 | PC.NURSE ---
Patient at nurses station crying. Patient states she is a third of a third of a third, but she has 4 kids. States Debo was in my belly but not now, so how do i know she was mine? Patient states i just miss all my people. My people are how i know i am ok. Then states my feet hurt. Patient walked away from nurses station. Will continue to monitor.
[2022-07-26] MEDS: nicotine 2 mg Gum BUCCAL ×2 (11:39→13:49)
[2022-07-26] MEDS: paliperidone ER 3 mg Tablet PO (12:30)
[2022-07-26] MEDS: hyDROXYzine 25 mg Capsule 50 MG PO ×2 (13:49→18:41)
[2022-07-26 14:00] VITALS: BP 124/86; PULSE 98; RESP 18; TEMP 36.6; O2SAT 98
--- NOTE | 2022-07-26 17:43 | PC.NURSE ---
Addendum entered and electronically signed by Andria Durbin RN 07/26/22 17:46: below note was for [id number] Original Note: Patient Behavior Patient continues to cycle rapidly between laughter and dancing to tears. Patient frequently mentioning her children and her job. Patient makes lots of statements that are not relevant to the situation i want to dance like Barney Romeo, but not dirty , this followed by her skittles not talking to her. Vistaril 50 mg given PO.
--- NOTE | 2022-07-26 17:46 | PC.NURSE ---
Patient Behavior Patient had a conversation with physician and is unsure if she will be home for her son's birthday. States she needs to get out of here so she can work to buy money for presents. Patient very tearful, pacing the halls and yelling. Haldol 5mg given PO.
--- NOTE | 2022-07-26 18:42 | PC.NURSE ---
Patient Behavior Patient tried to call children and no one answered. Patient has been pacing and yelling and crying in the halls for 15 minutes. Staff has tried talking and walking with patient, offered a snack. Patient continues behavior. Patient states nothing is going to help and tomorrow will be worse. Vistaril 50 mg given PO.
[2022-07-26] MEDS: trazodone 50 mg Tablet PO (20:00)
[2022-07-26] MEDS: diphenhydrAMINE 50 mg Capsule PO (20:00)
--- NOTE | 2022-07-26 20:00 | PC.NURSE ---
Patient up at nurse's station crying and cursing loudly. Irritable upon approach. Attempted to ask patient what was wrong and patient responded in nonsensical sentences. Stated The churn is the urn is the monster inside of us all. Patient continued to be loud and more agitated. Asked patient if I could talk to her in her room. Followed patient to room. Again asked patient what was wrong and what could I do for her. Patient responded Nobody can help the children and the mystic is here. Offered snacks and activities for distraction but patient continued to be upset. PRN's offered to patient at that time. PRN haldol, ativan and benadryl po given as ordered. Patient cooperative with administration. Spent several minutes in patient's room to assist with calming patient down.
[2022-07-26] MEDS: LORazepam 2 mg Tablet PO (20:09)
--- NOTE | 2022-07-26 20:30 | PC.NURSE ---
Patient continues to be labile. In hallway yelling loudly and posturing towards peers. Again patient talking in nonsensical sentences. Attempted to redirect patient but was unable to do so. PRN zyprexa po given without difficulty. Stayed with patient for several minutes.
[2022-07-26 21:10] VITALS: BP 137/88; PULSE 92; RESP 18; TEMP 36.8; O2SAT 98
--- NOTE | 2022-07-26 21:15 | PC.NURSE ---
Several attempts made to redirect patient since beginning of shift. Patient continues to be labile and agitated. Noted to cry one minute and then argumentative and loud in the next minute. Attempted several interventions with no success. Patient being intrusive with peers and posturing towards staff. PRN Jeff[place] po given as ordered without difficulty. This underwriter solicitation director spent extensive time with patient to continually redirect inappropriate behavior.
--- NOTE | 2022-07-26 23:00 | PC.NURSE ---
Patient laying in bed. No further bx noted since last PRN administration. Will continue to assess.
[2022-07-27] MEDS: ibuprofen 600 mg Tablet PO ×3 (05:57→21:30)
[2022-07-27 06:00] VITALS: BP 98/65; PULSE 104; RESP 18; TEMP 36.7; O2SAT 98; BMI 24.7
[2022-07-27] MEDS: hyDROXYzine 25 mg Capsule 50 MG PO ×3 (06:36→19:24)
[2022-07-27] MEDS: ARIPiprazole 30 mg Tablet PO (07:55)
[2022-07-27] MEDS: paliperidone 3 MG, paliperidone 6 MG 9 MG PO (07:55)
[2022-07-27] MEDS: metroNIDAZOLE 500 MG Tablet PO ×2 (07:56→19:24)
--- NOTE | 2022-07-27 07:57 | PC.NURSE ---
shift assessment up pacing unit by nurses station, mood calm & pleasant this morning, asked for coffee which was provided by staff. denies any SI/HI/AVH currently
[2022-07-27] MEDS: nicotine 2 mg Gum BUCCAL ×3 (09:55→19:24)
--- NOTE | 2022-07-27 10:55 | PC.NURSE ---
PRN VISTARIL 50 MG GIVEN PO PER PT C/O STATED ANXIETY, TEARFUL, PRESSURED SPEECH NOTED.
--- NOTE | 2022-07-27 11:19 | W.PM.NPUPNS ---
Subjective NPU Subjective: Patient presented today continuing to have the confusion and aimless speech and behavior. She reported that she believed in puff the Magic Kimmie[employer] and Peter Joe and Sonya and once again got on the subject of skittles, but is getting clear enough that she is more directly asking about discharge and always gets extremely upset when the answer to the question is no. Otherwise she continues to be confused and no signs of any issues with recent changes in the medications and she did not report any side effects. Mental Status Exam MSE Comments: This is a slender cachectic white female who appeared older than her stated age in hospital scrubs with poor grooming and intermittent eye contact. Poor dentition. There was no evidence of any abnormal involuntary motor movements appreciated except for occasional psychomotor agitation and other aimless behavior, with possible signs of improvement. Mostly cooperative with exam in mild to moderate distress during the conversation as she was labile but mildly less so. Mood not described, affect mercurial and labile. Thought process disorganized with continued periods of odd use of metaphors with clang associations and use of nonsense words. Thought content: Patient did not report suicidal or homicidal ideation, there was evidence of bizarre delusional thinking but none was reported. There was evidence of overvalued ideas, she did not endorse auditory or visual hallucinations. Her attention and concentration remain impaired, but improving and memory was unreliable but none were formally tested. She is alert and oriented to person and location but not date. Insight, judgment and impulse control are impaired. Vitals/I&O/Wt Last Vital Signs Temp 98.0 F 07/27/22 06:00 Pulse 104 H 07/27/22 06:00 Resp 18 07/27/22 06:00 BP 98/65 07/27/22 06:00 Pulse Ox 98 07/27/22 06:00 O2 Del Method 07/26/22 14:00 Weight last 48 hrs Weight 67.313 kg A&P Assessment and plan (1) Psychosis: (2) Methamphetamine use disorder, severe: (3) Altered mental status: Plan This is a 31-year-old white female who looks notably altered in mental status and a presentation consistent with methamphetamine use who presents with psychosis, confusion emotional dysregulation with significant hyperkinetic activity. 1. Increased abilify to 30mg in am. Started Invega 6 mg p.o. every morning which was increased to 9 mg and will likely move to 12 mg. May use augmentation versus switching. May look to add either lithium or Depakote. Continued Flagyl twice daily for total of 7 days for trichomonas. 2. Continue every 15 minute checks for safety. 3. Encourage individual, group and milieu therapies. 4. Encourage sober living treatment after discharge at the highest level of care to which she is willing to commit. Patient in need of inpatient substance abuse treatment. 5. She remains psychotic at this time, KAN testing completed which revealed several concerns regarding patient's ability to safely exist independently without support. 6. 21-day hold granted. Likely need for guardianship noted. Involuntary Hold Information 96 Hour Hold: 96 Hour Involuntary Admission: No Attestations NPU Medical Necessity Statement*: Inpatient hospitalization is medically necessary and the clinically appropriate intervention at this time. We will monitor/initiate medications and make changes as indicated. Likely length of stay 10-18 days. Coding Level of Care Code Acute All Purpose Clerk for Briseida Hathaway Diagnoses Psychosis F29 Methamphetamine use disorder, severe F15.20 Altered mental status R41.82
[2022-07-27] MEDS: ziprasidone hcl 20 mg Capsule PO (13:49)
--- NOTE | 2022-07-27 13:49 | PC.NURSE ---
PRN GEODON 20 MG GIVEN PO PER PT C/O AGITATION, YELLING WHILE UP ON THE PHONE, RAPID PRESSURED SPEECH NOTED. WILL CONT TO MONITOR.
[2022-07-27 14:00] VITALS: BP 110/64; PULSE 111; RESP 20; TEMP 36.7; O2SAT 98
--- NOTE | 2022-07-27 19:20 | PC.NURSE ---
Patient at nurse's station. Mood is anxious. States she is upset because she wants to see her children. Patient hyper-verbal and tearful. Attempted to redirect patient to activities for distraction with no success. PRN Vistaril given at that time. Cooperative with administration.
[2022-07-27] MEDS: trazodone 50 mg Tablet PO (19:24)
--- NOTE | 2022-07-27 20:45 | PC.NURSE ---
Patient labile. Yelling and crying about various subjects in nonsensical sentences. Patient became more agitated when attempting to redirect. Stated [place] there is a sun for fun and you are ruining it! Continued to escalate. Again attempted to redirect with no success. PRN benadryl, ativan and haldol po given as ordered. Patient cooperative with administration. Redirected to room to spend time with patient until she could calm down.
[2022-07-27] MEDS: haloperidol 5 mg Tablet PO (20:49)
[2022-07-27] MEDS: LORazepam 2 mg Tablet PO (20:49)
[2022-07-27] MEDS: diphenhydrAMINE 50 mg Capsule PO (20:49)
[2022-07-27 21:18] VITALS: BP 118/67; PULSE 105; RESP 18; TEMP 36.8; O2SAT 94
--- NOTE | 2022-07-27 23:00 | PC.NURSE ---
Patient resting quietly in bed with eyes closed at this time. No further bx since administration of PRN's earlier in shift.
[2022-07-28] MEDS: ibuprofen 600 mg Tablet PO ×2 (03:59→20:36)
[2022-07-28] MEDS: OLANZapine 5 mg ODT PO ×3 (04:09→20:24)
--- NOTE | 2022-07-28 04:10 | PC.NURSE ---
Patient came to nurse's station crying and yelling that she needed to be let out of the hospital so she could save her kids. Patient started to yell loudly in nonsensical sentences. Unable to redirect. PRN zyprexa given. Asked patient to go to dayroom or room as to not wake other patient's. Patient stayed at nurse's station for a few minutes and then returned to her room.
[2022-07-28 06:00] VITALS: BP 100/59; PULSE 98; RESP 17; TEMP 36.5; O2SAT 98
[2022-07-28] MEDS: ARIPiprazole 30 mg Tablet PO (07:41)
[2022-07-28] MEDS: metroNIDAZOLE 500 MG Tablet PO ×2 (07:41→20:24)
[2022-07-28] MEDS: paliperidone 3 MG, paliperidone 6 MG 9 MG PO (07:41)
[2022-07-28] MEDS: nicotine 2 mg Gum BUCCAL ×3 (10:25→16:12)
--- NOTE | 2022-07-28 11:11 | PC.NURSE ---
PRN ZYPREXA ZYDIS 5 MG GIVEN PO SUBLINGUAL PER PT C/O AGITATION/ANXIETY. PT HAD TO BE DISMISSED FROM GROUP FOR BEING DISRUPTIVE, TEARFUL, RAPID PRESSURED SPEECH NOTED.
[2022-07-28 14:00] VITALS: BP 118/67; PULSE 104; RESP 17; TEMP 36.8; O2SAT 99
[2022-07-28 14:27] LABS: Rapid Plasma Reagin Syphilis Nonreactive (Nonreactive)
[2022-07-28] MEDS: hyDROXYzine 25 mg Capsule 50 MG PO ×2 (15:58→21:19)
[2022-07-28] MEDS: ziprasidone hcl 20 mg Capsule PO (17:55)
--- NOTE | 2022-07-28 17:56 | PC.NURSE ---
PRN GEODON 20 MG GIVEN PO PER PT C/O AGITATION. PACING UNIT, TEARFUL, LOUD, RAPID PRESSURED SPEECH NOTED. WILL CONT TO MONITOR
--- NOTE | 2022-07-28 19:00 | P.NPUPN_ITS ---
Subjective NPU Subjective: Patient returns today with no major changes. She continues to be mercurial and labile. She continues to appear very active at times where she is jumping like she is doing cheerleading or sports activities. She continues to have nonsensical and aimless talk and behavior. No side effects from medication changes and we discussed likely maxing out on the Invega at 12 mg soon. Mental Status Exam MSE Comments: This is a slender cachectic white female who appeared older than her stated age in hospital scrubs with poor grooming and intermittent eye contact. Poor dentition. There was no evidence of any abnormal involuntary motor movements appreciated except for occasional psychomotor agitation and other aimless behavior, with possible signs of improvement. Mostly cooperative with exam in mild to moderate distress during the conversation as she was labile but mildly less so. Mood not described, affect mercurial and labile. Thought process disorganized with continued periods of odd use of metaphors with clang associations and use of nonsense words. Thought content: Patient did not report suicidal or homicidal ideation, there was evidence of bizarre delusional thinking but none was reported. There was evidence of overvalued ideas, she did not endorse auditory or visual hallucinations. Her attention and concentration remain impaired, but improving and memory was unreliable but none were formally tested. She is alert and oriented to person and location but not date. Insight, judgment and impulse control are impaired. Vitals/I&O/Wt Last Vital Signs Temp 98.0 F 07/28/22 20:44 Pulse 98 07/28/22 20:44 Resp 16 07/28/22 20:44 BP 123/88 07/28/22 20:44 Pulse Ox 97 07/28/22 20:44 O2 Del Method 07/28/22 06:00 A&P Assessment and plan (1) Psychosis: (2) Methamphetamine use disorder, severe: (3) Altered mental status: Plan This is a 31-year-old white female who looks notably altered in mental status and a presentation consistent with methamphetamine use who presents with psychosis, confusion emotional dysregulation with significant hyperkinetic activity. 1. Increased abilify to 30mg in am. Started Invega 6 mg p.o. every morning which was increased to 9 mg and will likely move to 12 mg. May use augmentation versus switching. May look to add either lithium or Depakote. Continued Flagyl twice daily for total of 7 days for trichomonas. 2. Continue every 15 minute checks for safety. 3. Encourage individual, group and milieu therapies. 4. Encourage sober living treatment after discharge at the highest level of care to which she is willing to commit. Patient in need of inpatient substance abuse treatment. 5. She remains psychotic at this time, KAN testing completed which revealed several concerns regarding patient's ability to safely exist independently without support. 6. 21-day hold granted. Likely need for guardianship noted. Involuntary Hold Information 96 Hour Hold: 96 Hour Involuntary Admission: No Attestations NPU Medical Necessity Statement*: Inpatient hospitalization is medically necessary and the clinically appropriate intervention at this time. We will monitor/initiate medications and make changes as indicated. Likely length of stay 10-18 days. Coding Level of Care Code Acute Contracting Support Specialist for Briseida Hathaway Diagnoses Psychosis F29 Methamphetamine use disorder, severe F15.20 Altered mental status R41.82
[2022-07-28] MEDS: trazodone 50 mg Tablet PO (20:24)
[2022-07-28 20:44] VITALS: BP 123/88; PULSE 98; RESP 16; TEMP 36.7; O2SAT 97
[2022-07-28] MEDS: acetaminophen 325 mg Tablet 650 MG PO (21:19)
[2022-07-28] MEDS: LORazepam 2 mg Tablet PO (21:31)
[2022-07-28] MEDS: haloperidol 5 mg Tablet PO (21:31)
--- NOTE | 2022-07-28 21:34 | PC.NURSE ---
pt crying, up at nurses station asking for her mom, trying to sit down in the hallway. administered prn medication for anxiety/.
[2022-07-29] MEDS: ibuprofen 600 mg Tablet PO ×2 (05:41→22:20)
[2022-07-29] MEDS: hyDROXYzine 25 mg Capsule 50 MG PO (05:55)
--- NOTE | 2022-07-29 05:58 | PC.NURSE ---
pt up at nurses station requesting something for anxiety. administered prn medication for anxiety.
[2022-07-29 06:00] VITALS: BP 99/69; PULSE 104; RESP 17; TEMP 36.8; O2SAT 93
[2022-07-29] MEDS: metroNIDAZOLE 500 MG Tablet PO ×2 (08:21→22:04)
[2022-07-29] MEDS: haloperidol 5 mg Tablet PO ×3 (08:21→22:04)
[2022-07-29] MEDS: diphenhydrAMINE 50 mg Capsule PO ×3 (08:21→22:04)
[2022-07-29] MEDS: paliperidone 3 MG, paliperidone 6 MG 9 MG PO (08:21)
[2022-07-29] MEDS: ARIPiprazole 30 mg Tablet PO (08:21)
[2022-07-29] MEDS: LORazepam 2 mg Tablet PO ×3 (08:21→22:04)
--- NOTE | 2022-07-29 10:37 | W.PM.NPUPNS ---
Subjective NPU Subjective: Patient presented today continuing to struggle with hyperkinetic behavior. She continues to have clang associations but is seeming to slow down some. She is finally having periods occasionally where she actually can rest which was not the case a couple weeks ago. We once again discussed increasing the Invega to 12 mg and it is unclear if she understood. Her guardianship papers have been filed and we discussed that once again it is unclear if she understood. We discussed awaiting her guardianship hearing. Mental Status Exam MSE Comments: This is a slender cachectic white female who appeared older than her stated age in hospital scrubs with poor grooming and intermittent eye contact. Poor dentition. There was no evidence of any abnormal involuntary motor movements appreciated except for occasional psychomotor agitation and other aimless behavior, with possible signs of improvement. Mostly cooperative with exam in mild to moderate distress during the conversation as she was labile but mildly less so. Mood not described, affect mercurial and labile. Thought process disorganized with continued periods of odd use of metaphors with clang associations and use of nonsense words. Thought content: Patient did not report suicidal or homicidal ideation, there was evidence of bizarre delusional thinking but none was reported. There was evidence of overvalued ideas, she did not endorse auditory or visual hallucinations. Her attention and concentration remain impaired, but improving and memory was unreliable but none were formally tested. She is alert and oriented to person and location but not date. Insight, judgment and impulse control are impaired. Vitals/I&O/Wt Last Vital Signs Temp 98.3 F 07/29/22 06:00 Pulse 104 H 07/29/22 06:00 Resp 17 07/29/22 06:00 BP 99/69 07/29/22 06:00 Pulse Ox 93 07/29/22 06:00 O2 Del Method 07/29/22 06:00 A&P Assessment and plan (1) Psychosis: (2) Methamphetamine use disorder, severe: (3) Altered mental status: Plan This is a 31-year-old white female who looks notably altered in mental status and a presentation consistent with methamphetamine use who presents with psychosis, confusion emotional dysregulation with significant hyperkinetic activity. 1. Increased abilify to 30mg in am. Continued Invega 9 mg p.o. every morning and increasing to 12 mg. May use augmentation versus switching. May look to add either lithium or Depakote. Continued Flagyl twice daily for total of 7 days for trichomonas. 2. Continue every 15 minute checks for safety. 3. Encourage individual, group and milieu therapies. 4. Encourage sober living treatment after discharge at the highest level of care to which she is willing to commit. Patient in need of inpatient substance abuse treatment. 5. She remains psychotic at this time, KAN testing completed which revealed several concerns regarding patient's ability to safely exist independently without support. 6. 21-day hold granted. Likely need for guardianship noted. Involuntary Hold Information 96 Hour Hold: 96 Hour Involuntary Admission: No Attestations NPU Medical Necessity Statement*: Inpatient hospitalization is medically necessary and the clinically appropriate intervention at this time. We will monitor/initiate medications and make changes as indicated. Likely length of stay 10-18 days. Coding Level of Care Code Acute Movement Therapist for Briseida Hathaway Diagnoses Psychosis F29 Methamphetamine use disorder, severe F15.20 Altered mental status R41.82
[2022-07-29] MEDS: paliperidone ER 3 mg Tablet PO (11:19)
[2022-07-29] MEDS: nicotine 2 mg Gum BUCCAL ×3 (12:14→18:41)
[2022-07-29 14:00] VITALS: BP 132/68; PULSE 76; RESP 16; TEMP 36.6; O2SAT 100
[2022-07-29] MEDS: OLANZapine 5 mg ODT PO (14:22)
--- NOTE | 2022-07-29 16:20 | PC.NURSE ---
Pt came to nurses station asking for medication as she said she was feeling overwhelmed with her emotions; pt tearful and restless, pacing, throwing arms into the air, etc. Medication provided.
--- NOTE | 2022-07-29 17:21 | PC.NURSE ---
Pt more calm; able to engage with peers; no longer tearful.
[2022-07-29 22:00] VITALS: BP 119/85; PULSE 119; RESP 18; TEMP 36.6; O2SAT 98
[2022-07-29] MEDS: trazodone 50 mg Tablet PO (22:04)
[2022-07-30 06:00] VITALS: BP 95/62; PULSE 118; RESP 18; TEMP 36.3; O2SAT 98
[2022-07-30] MEDS: metroNIDAZOLE 500 MG Tablet PO ×2 (07:39→19:51)
[2022-07-30] MEDS: ARIPiprazole 30 mg Tablet PO (07:39)
[2022-07-30] MEDS: paliperidone ER 6 mg Tablet 12 MG PO (07:39)
[2022-07-30] MEDS: nicotine 2 mg Gum BUCCAL ×5 (07:40→20:53)
[2022-07-30] MEDS: ibuprofen 600 mg Tablet PO (08:10)
[2022-07-30] MEDS: ziprasidone hcl 20 mg Capsule PO (10:00)
[2022-07-30] MEDS: diphenhydrAMINE 50 mg Capsule PO ×2 (11:10→19:51)
[2022-07-30] MEDS: LORazepam 2 mg Tablet PO ×2 (11:10→19:51)
[2022-07-30] MEDS: haloperidol 5 mg Tablet PO ×2 (11:10→19:51)
[2022-07-30 14:00] VITALS: BP 127/89; PULSE 105; RESP 18; TEMP 36.6; O2SAT 97
[2022-07-30] MEDS: hyDROXYzine 25 mg Capsule 50 MG PO (14:25)
[2022-07-30] MEDS: OLANZapine 5 mg ODT PO (14:25)
--- NOTE | 2022-07-30 15:12 | W.PM.NPUPNS ---
Subjective NPU Subjective: Patient presents today continuing to be aimless and purposeless in her behavior most of the time. Occasionally she has moments of clarity but they are very fleeting and usually related to something like eating or needing a brush. She has continued to have increasing situations where she is able to sleep and not be so revved up, but this is slow in coming. We discussed starting her on Depakote tomorrow but she likely did not understand. Mental Status Exam MSE Comments: This is a slender cachectic white female who appeared older than her stated age in hospital scrubs with poor grooming and intermittent eye contact. Poor dentition. There was no evidence of any abnormal involuntary motor movements appreciated except for occasional psychomotor agitation and other aimless behavior, with possible signs of improvement. Mostly cooperative with exam in mild to moderate distress during the conversation as she was labile but mildly less so. Mood not described, affect mercurial and labile. Thought process disorganized with continued periods of odd use of metaphors with clang associations and use of nonsense words. Thought content: Patient did not report suicidal or homicidal ideation, there was evidence of bizarre delusional thinking but none was reported. There was evidence of overvalued ideas, she did not endorse auditory or visual hallucinations. Her attention and concentration remain impaired, but improving and memory was unreliable but none were formally tested. She is alert and oriented to person and location but not date. Insight, judgment and impulse control are impaired. Vitals/I&O/Wt Last Vital Signs Temp 98 F 07/30/22 14:00 Pulse 105 H 07/30/22 14:00 Resp 18 07/30/22 14:00 BP 127/89 07/30/22 14:00 Pulse Ox 97 07/30/22 14:00 O2 Del Method 07/30/22 14:00 A&P Assessment and plan (1) Psychosis: (2) Methamphetamine use disorder, severe: (3) Altered mental status: Plan This is a 31-year-old white female who looks notably altered in mental status and a presentation consistent with methamphetamine use who presents with psychosis, confusion emotional dysregulation with significant hyperkinetic activity. 1. Increased abilify to 30mg in am. Continued Invega 9 mg p.o. every morning and increasing to 12 mg. May use augmentation versus switching. May look to add either lithium or Depakote. Continued Flagyl twice daily for total of 7 days for trichomonas. 2. Continue every 15 minute checks for safety. 3. Encourage individual, group and milieu therapies. 4. Encourage sober living treatment after discharge at the highest level of care to which she is willing to commit. Patient in need of inpatient substance abuse treatment. 5. She remains psychotic at this time, KAN testing completed which revealed several concerns regarding patient's ability to safely exist independently without support. 6. 21-day hold granted. Awaiting guardianship hearing from [facility]. Involuntary Hold Information 96 Hour Hold: 96 Hour Involuntary Admission: No Attestations NPU Medical Necessity Statement*: Inpatient hospitalization is medically necessary and the clinically appropriate intervention at this time. We will monitor/initiate medications and make changes as indicated. Likely length of stay 10-18 days. Will likely be dependent on guardianship and placement Coding Level of Care Code Acute Hand Shoes Sewer for Briseida Hathaway Diagnoses Psychosis F29 Methamphetamine use disorder, severe F15.20 Altered mental status R41.82
[2022-07-30] MEDS: trazodone 50 mg Tablet PO (19:51)
[2022-07-30 22:00] VITALS: BP 138/71; PULSE 106; RESP 18; TEMP 36.8; O2SAT 98
[2022-07-31] MEDS: haloperidol 5 mg Tablet PO ×3 (07:43→21:57)
[2022-07-31] MEDS: LORazepam 2 mg Tablet PO ×3 (07:43→21:57)
[2022-07-31] MEDS: diphenhydrAMINE 50 mg Capsule PO ×3 (07:43→21:57)
--- NOTE | 2022-07-31 07:45 | PC.NURSE ---
Pt agitated; rapid speech; restless, pacing, etc. Medication provided.
[2022-07-31] MEDS: paliperidone ER 6 mg Tablet 12 MG PO (08:55)
[2022-07-31] MEDS: ARIPiprazole 30 mg Tablet PO (08:55)
[2022-07-31] MEDS: ibuprofen 600 mg Tablet PO (08:55)
[2022-07-31] MEDS: metroNIDAZOLE 500 MG Tablet PO ×2 (09:00→21:57)
[2022-07-31] MEDS: nicotine 2 mg Gum BUCCAL (09:13)
[2022-07-31] MEDS: nicotine 4 mg lozenge MUCOUS MEM ×2 (10:39→18:24)
[2022-07-31] MEDS: OLANZapine 5 mg ODT PO (11:04)
[2022-07-31] MEDS: hyDROXYzine 25 mg Capsule 50 MG PO (11:04)
--- NOTE | 2022-07-31 11:15 | W.PM.NPUPNS ---
Subjective NPU Subjective: Patient presents today continuing to have labile, anus and purposeless behavior but seeming like there are moments where she has a clear sentence or seems to understand what is being said. She still has those breakdown to seem to be focused on her saying something about one of her children and discharging to be with them. Followed by great despair otherwise she states occasionally able to catching that her sleep at night suggesting some improvement is forthcoming. Mental Status Exam MSE Comments: This is a slender cachectic white female who appeared older than her stated age in hospital scrubs with poor grooming and intermittent eye contact. Poor dentition. There was no evidence of any abnormal involuntary motor movements appreciated except for occasional psychomotor agitation and other aimless behavior, with possible signs of improvement. Mostly cooperative with exam in mild to moderate distress during the conversation as she was labile but mildly less so. Mood not described, affect mercurial and labile. Thought process disorganized with continued periods of odd use of metaphors with clang associations and use of nonsense words, but some sense of mild improvement. Thought content: Patient did not report suicidal or homicidal ideation, there was evidence of bizarre delusional thinking but none was reported. There was evidence of overvalued ideas, she did not endorse auditory or visual hallucinations. Her attention and concentration remain impaired, but improving and memory was unreliable but none were formally tested. She is alert and oriented to person and location but not date. Insight, judgment and impulse control are impaired. Vitals/I&O/Wt Last Vital Signs Temp 98.2 F 07/30/22 22:00 Pulse 106 H 07/30/22 22:00 Resp 18 07/30/22 22:00 BP 138/71 07/30/22 22:00 Pulse Ox 98 07/30/22 22:00 O2 Del Method 07/30/22 22:00 A&P Assessment and plan (1) Psychosis: (2) Methamphetamine use disorder, severe: (3) Altered mental status: Plan This is a 31-year-old white female who looks notably altered in mental status and a presentation consistent with methamphetamine use who presents with psychosis, confusion emotional dysregulation with significant hyperkinetic activity. 1. Increased abilify to 30mg in am. Continued Invega 9 mg p.o. every morning and increasing to 12 mg. May use augmentation versus switching. Initiate Depakote DR 500 mg p.o. twice daily. Continued Flagyl twice daily for total of 7 days for trichomonas. 2. Continue every 15 minute checks for safety. 3. Encourage individual, group and milieu therapies. 4. Encourage sober living treatment after discharge at the highest level of care to which she is willing to commit. Patient in need of inpatient substance abuse treatment. 5. She remains psychotic at this time, KAN testing completed which revealed several concerns regarding patient's ability to safely exist independently without support. 6. 21-day hold granted. Awaiting guardianship hearing from [facility]. Involuntary Hold Information 96 Hour Hold: 96 Hour Involuntary Admission: No Attestations NPU Medical Necessity Statement*: Inpatient hospitalization is medically necessary and the clinically appropriate intervention at this time. We will monitor/initiate medications and make changes as indicated. Likely length of stay 10-18 days. Will likely be dependent on guardianship and placement Coding Level of Care Code Acute Infrastructure Technician for Briseida Hathaway Diagnoses Psychosis F29 Methamphetamine use disorder, severe F15.20 Altered mental status R41.82
[2022-07-31] MEDS: divalproex DR 500 mg Tablet PO ×2 (11:18→16:55)
--- NOTE | 2022-07-31 13:20 | PC.NURSE ---
Pt was started on Depakote today. Discussed purpose for the medication. Pt compliant. She rested in bed shortly after taking the medication. When she got up, pt said she was feeling better. More controlled; no longer agitated. Speech more fluid. Pt making appropriate requests. Up to day room for meal.
[2022-07-31 14:00] VITALS: BP 137/91; PULSE 106; RESP 18; TEMP 36.4; O2SAT 98
[2022-07-31] MEDS: ziprasidone hcl 20 mg Capsule PO (14:11)
[2022-07-31] MEDS: benztropine 1 mg Tablet PO (16:55)
[2022-07-31] MEDS: trazodone 50 mg Tablet PO (21:57)
[2022-08-01 06:00] VITALS: BP 94/72; PULSE 110; RESP 18; TEMP 36.6; O2SAT 96
[2022-08-01] MEDS: ARIPiprazole 30 mg Tablet PO (08:50)
[2022-08-01] MEDS: paliperidone ER 6 mg Tablet 12 MG PO (08:50)
[2022-08-01] MEDS: divalproex DR 500 mg Tablet PO ×2 (08:51→16:35)
[2022-08-01] MEDS: metroNIDAZOLE 500 MG Tablet PO ×2 (08:51→22:17)
[2022-08-01] MEDS: benztropine 1 mg Tablet PO (08:51)
[2022-08-01] MEDS: ziprasidone hcl 20 mg Capsule PO (08:51)
[2022-08-01] MEDS: haloperidol 5 mg Tablet PO ×2 (09:45→16:35)
[2022-08-01] MEDS: LORazepam 2 mg Tablet PO ×2 (09:45→16:35)
[2022-08-01] MEDS: diphenhydrAMINE 50 mg Capsule PO ×2 (09:45→16:35)
[2022-08-01] MEDS: nicotine 4 mg lozenge MUCOUS MEM ×3 (10:11→15:31)
[2022-08-01] MEDS: OLANZapine 5 mg ODT PO (11:56)
--- NOTE | 2022-08-01 13:35 | P.NPUPN_ITS ---
Subjective NPU Subjective: Patient is in today reporting that she is wanting to leave. At some point every day she mentions going to leave in a very unclear abstract way. She continues to be disorganized and express desire to see her children also abstractly. Otherwise she seems to be having some mild slowing in her hyperkinetic nature though she still is very kinetic. Mental Status Exam MSE Comments: This is a slender cachectic white female who appeared older than her stated age in hospital scrubs with poor grooming and intermittent eye contact. Poor dentition. There was no evidence of any abnormal involuntary mo tor movements appreciated except for occasional psychomotor agitation and other aimless behavior, with possible signs of improvement. Mostly cooperative with exam in mild to moderate distress during the conversation as she was labile but mildly less so. Mood not described, affect mercurial and labile. Thought process disorganized with continued periods of odd use of metaphors with clang associations and use of nonsense words, but some sense of mild improvement. Thought content: Patient did not report suicidal or homicidal ideation, there was evidence of bizarre delusional thinking but none was reported. There was evidence of overvalued ideas, she did not endorse auditory or visual hallucinations. Her attention and concentration remain impaired, but improving and memory was unreliable but none were formally tested. She is alert and oriented to person and location but not date. Insight, judgment and impulse control are impaired. Vitals/I&O/Wt Last Vital Signs Temp 97.8 F 08/01/22 06:00 Pulse 110 H 08/01/22 06:00 Resp 18 08/01/22 06:00 BP 94/72 08/01/22 06:00 Pulse Ox 96 08/01/22 06:00 O2 Del Method 08/01/22 06:00 A&P Assessment and plan (1) Psychosis: (2) Methamphetamine use disorder, severe: (3) Altered mental status: Plan This is a 31-year-old white female who looks notably altered in mental status and a presentation consistent with methamphetamine use who presents with psychosis, confusion emotional dysregulation with significant hyperkinetic activity. 1. Increased abilify to 30mg in am. Continued Invega 12 mg daily. May use augmentation versus switching. Initiate Depakote DR 500 mg p.o. twice daily. Continued Flagyl twice daily for total of 7 days for trichomonas. We will discontinue Flagyl tomorrow. 2. Continue every 15 minute checks for safety. 3. Encourage individual, group and milieu therapies. 4. Encourage sober living treatment after discharge at the highest level of care to which she is willing to commit. Patient in need of inpatient substance abuse treatment. 5. She remains psychotic at this time, KAN testing completed which revealed several concerns regarding patient's ability to safely exist independently without support. 6. 21-day hold granted. Awaiting guardianship hearing from [facility]. Involuntary Hold Information 96 Hour Hold: 96 Hour Involuntary Admission: No Attestations NPU Medical Necessity Statement*: Inpatient hospitalization is medically necessary and the clinically appropriate intervention at this time. We will monitor/initiate medications and make changes as indicated. Likely length of stay 10-18 days. Will likely be dependent on guardianship and placement Coding Level of Care Code Acute Clothes Wringer for Briseida Hathaway Diagnoses Psychosis F29 Methamphetamine use disorder, severe F15.20 Altered mental status R41.82
[2022-08-01 14:00] VITALS: BP 134/86; PULSE 97; RESP 18; TEMP 36.4; O2SAT 99
[2022-08-01 20:42] VITALS: RESP 16
[2022-08-01] MEDS: hyDROXYzine 25 mg Capsule 50 MG PO (22:16)
[2022-08-01] MEDS: trazodone 50 mg Tablet PO (22:17)
[2022-08-02] MEDS: trazodone 50 mg Tablet PO ×2 (03:34→21:28)
[2022-08-02] MEDS: haloperidol 5 mg Tablet PO ×2 (03:45→08:47)
[2022-08-02] MEDS: diphenhydrAMINE 50 mg Capsule PO ×2 (03:45→08:47)
[2022-08-02] MEDS: LORazepam 2 mg Tablet PO ×2 (03:45→08:47)
[2022-08-02] MEDS: nicotine 2 mg Gum BUCCAL ×3 (05:43→13:20)
[2022-08-02] MEDS: ziprasidone hcl 20 mg Capsule PO (05:45)
[2022-08-02 05:59] VITALS: BP 104/70; PULSE 108; RESP 18; TEMP 37; O2SAT 92
--- NOTE | 2022-08-02 07:34 | P.NPUPN_ITS ---
Subjective NPU Subjective: Patient presented today reporting that she is feeling better. For the first time since she presented she was able to have a more cogent conversation with a normal [id number] of the question and answer. She had a couple moments where she drifted off and said some kind of rhyming or clang a ssociation but otherwise she was able to speak mostly in sentences and has much less confusion and any other time we have spoken. She has questions about the guardianship process. Mental Status Exam MSE Comments: This is a slender cachectic white female who appeared older than her stated age in hospital scrubs with improved grooming and eye contact. Poor dentition. There was no evidence of any abnormal involuntary motor movements appreciated with signs of improvement. Cooperative with exam in no acute distress. Mood described as okay, affect much less mercurial and labile. Thought process more organized with occasional clang associations and use of nonsense words, but significant improvement. Thought content: Patient did not report suicidal or homicidal ideation, there were no delusions reported or noted. She did not report auditory or visual hallucinations. Her attention and concentration appeared mostly intact and memory was more reliable but none were formally tested. She is alert and oriented x3. Insight, judgment and impulse control are improving. Vitals/I&O/Wt Last Vital Signs Temp 98.6 F 08/02/22 05:59 Pulse 108 H 08/02/22 05:59 Resp 18 08/02/22 05:59 BP 104/70 08/02/22 05:59 Pulse Ox 92 08/02/22 05:59 O2 Del Method 08/02/22 05:59 A&P Assessment and plan (1) Psychosis: (2) Methamphetamine use disorder, severe: (3) Altered mental status: Plan This is a 31-year-old white female who looks notably altered in mental status and a presentation consistent with methamphetamine use who presents with psychosis, confusion emotional dysregulation with significant hyperkinetic activity. 1. Increased abilify to 30mg in am. Continued Invega 12 mg daily. May use augmentation versus switching. Initiate Depakote DR 500 mg p.o. twice daily. Continued Flagyl twice daily for total of 7 days for trichomonas. We will discontinue Flagyl tomorrow. 2. Continue every 15 minute checks for safety. 3. Encourage individual, group and milieu therapies. 4. Encourage sober living treatment after discharge at the highest level of care to which she is willing to commit. Patient in need of inpatient substance abuse treatment. 5. She remains psychotic at this time, KAN testing completed which revealed several concerns regarding patient's ability to safely exist independently without support. 6. 21-day hold granted. Awaiting guardianship hearing from [facility]. Involuntary Hold Information 96 Hour Hold: 96 Hour Involuntary Admission: No Attestations NPU Medical Necessity Statement*: Inpatient hospitalization is medically necessary and the clinically appropriate intervention at this time. We will monitor/initiate medications and make changes as indicated. Likely length of stay 9-17 days. Will likely be dependent on guardianship and placement Coding Level of Care Code Acute Superintendent Overhead Distribution for Briseida Fwd Diagnoses Psychosis F29 Methamphetamine use disorder, severe F15.20 Altered mental status R41.82
[2022-08-02] MEDS: benztropine 1 mg Tablet PO (08:47)
[2022-08-02] MEDS: metroNIDAZOLE 500 MG Tablet PO (08:47)
[2022-08-02] MEDS: paliperidone ER 6 mg Tablet 12 MG PO (08:47)
[2022-08-02] MEDS: ARIPiprazole 30 mg Tablet PO (08:47)
[2022-08-02] MEDS: divalproex DR 500 mg Tablet PO ×2 (08:47→18:04)
[2022-08-02 14:00] VITALS: BP 129/82; PULSE 129; RESP 18; TEMP 36.7; O2SAT 96
[2022-08-02] MEDS: nicotine 4 mg lozenge MUCOUS MEM (16:34)
[2022-08-02 20:03] VITALS: BP 136/72; PULSE 115; RESP 17; TEMP 36.6; O2SAT 94
[2022-08-02] MEDS: hyDROXYzine 25 mg Capsule 50 MG PO (20:25)
[2022-08-03] MEDS: hydrocortisone 1% cream 28 gm 1 APPLIC TOPICAL (03:08)
[2022-08-03] MEDS: ibuprofen 600 mg Tablet PO ×3 (05:08→18:17)
[2022-08-03] MEDS: hyDROXYzine 25 mg Capsule 50 MG PO ×3 (05:45→15:43)
[2022-08-03 06:00] VITALS: BP 136/78; PULSE 106; RESP 17; TEMP 36.6; O2SAT 100
[2022-08-03] MEDS: paliperidone ER 6 mg Tablet 12 MG PO (07:55)
[2022-08-03] MEDS: ARIPiprazole 30 mg Tablet PO (07:55)
[2022-08-03] MEDS: divalproex DR 500 mg Tablet PO ×2 (07:55→20:13)
--- NOTE | 2022-08-03 07:56 | PC.NURSE ---
shift assessment cooperative and pleasant with staff interaction, denies SI/HI currently, when asked if she was having hallucinations, pt looked at the ceiling and stated well sometimes I hear the radio ... staff told patient that the radio plays overhead a lot of the times, that was normal to hear the radio. will cont to monitor
--- NOTE | 2022-08-03 09:21 | PC.NURSE ---
prn VISTARIL 50 MG GIVEN PO PER PT C/O STATED ANXIETY, REQUESTING ANXIETY MED
[2022-08-03] MEDS: nicotine 2 mg Gum BUCCAL ×2 (09:40→12:40)
[2022-08-03] MEDS: OLANZapine 5 mg ODT PO (12:25)
--- NOTE | 2022-08-03 12:25 | PC.NURSE ---
PRN ZYPREXA ZYDIS 5 MG GIVEN PO SUBLINGUAL PER PT C/O FURTHER ANXIETY/AGITATION/PSYCHOSIS. PACING UNIT, CONTINUOUSLY TALKING TO PEOPLE THAT AREN'T THERE, RAPID PRESSURED SPEECH NOTED. RAISING ARMS TO THE CEILING IF TALKING TO SOMEBODY. WORD SALAD, MUCH REDIRECTION NEEDED BY STAFF.
[2022-08-03] MEDS: haloperidol 5 mg Tablet PO (13:38)
--- NOTE | 2022-08-03 13:39 | PC.NURSE ---
PRN HALDOL 5 MG GIVEN PO PER PT C/O FUTHER ANXIETY/AGITATION. PT CONT TO PACE HALLWAY, MANIC ACTING, TALKING TO HERSELF, RAPID PRESSURED SPEECH NOTED.
[2022-08-03 14:00] VITALS: BP 120/74; PULSE 70; RESP 16; TEMP 36.6; O2SAT 98
--- NOTE | 2022-08-03 15:43 | PC.NURSE ---
PRN VISTARIL 50 MG GIVEN PO PER PT C/O FUTHER WESLEY, PT STATED I'M TRYING TO BE PROACTIVE HERE WILL CONT TO MONITOR
--- NOTE | 2022-08-03 17:20 | W.PM.NPUPNS ---
Subjective NPU Subjective: Patient is a 31-year-old white female admitted involuntarily currently with a history of psychosis in the context of continued methamphetamine abuse. Patient continued to appear bizarre on interview as she has required continued use of as needed medications for increased disruption and agitation. She had become quite unraveled as she stated that she has been holding in all of her feelings after she had been unable to see her children on their birthday. She continued to have unusual thoughts while she continued to appear to be difficult to follow with unusual associations and continued writing. She had continued to report a variety of somatic complaints. Mental Status Exam MSE Comments: This is a slender cachectic white female who appeared older than her stated age in hospital scrubs with poor grooming and poor eye contact. Poor dentition. There was no evidence of any abnormal involuntary motor movements appreciated with signs of improvement. Cooperative with exam in no acute distress. Mood described as terrible. Her affect was intense and labile. Thought process was nonlinear and perseverative with occasional clang associations and use of nonsense words. Thought content: Patient did not report suicidal or homicidal ideation, there were no delusions appreciated but continued evidence of overvalued ideas. She did not report auditory or visual hallucinations. Her attention and concentration appeared mostly intact and memory was more reliable but none were formally tested. She is alert and oriented x3. Insight, judgment and impulse control are improving. Vitals/I&O/Wt Last Vital Signs Temp 98 F 08/03/22 14:00 Pulse 70 08/03/22 14:00 Resp 16 08/03/22 14:00 BP 120/74 08/03/22 14:00 Pulse Ox 98 08/03/22 14:00 O2 Del Method 08/03/22 14:00 Weight last 48 hrs Weight 70.534 kg A&P Assessment and plan (1) Psychosis: (2) Methamphetamine use disorder, severe: (3) Altered mental status: Plan This is a 31-year-old white female who looks notably altered in mental status and a presentation consistent with methamphetamine use who presents with psychosis, confusion emotional dysregulation with significant hyperkinetic activity. 1. Continue abilify at 30mg in am. Continued Invega 12 mg daily. May use augmentation versus switching. Initiate Depakote DR 500 mg p.o. twice daily. 2. Continue every 15 minute checks for safety. 3. Encourage individual, group and milieu therapies. 4. Encourage sober living treatment after discharge at the highest level of care to which she is willing to commit. Patient in need of inpatient substance abuse treatment. 5. She remains psychotic at this time, KAN testing completed which revealed several concerns regarding patient's ability to safely exist independently without support. 6. 21-day hold granted. Awaiting guardianship hearing from [facility]. Involuntary Hold Information 96 Hour Hold: 96 Hour Involuntary Admission: No Attestations NPU Medical Necessity Statement*: Inpatient hospitalization is medically necessary and the clinically appropriate intervention at this time. We will monitor/initiate medications and make changes as indicated with likely length of stay 9-17 days. Will likely be dependent on guardianship and placement Coding Level of Care Code Established Pt Acute Continuous Linter Drier Operator for Briseida Hathaway Patient Type Established History Problem Focused Exam Problem Focused Medical Decision Making Straight Forward Diagnoses Psychosis F29 Methamphetamine use disorder, severe F15.20 Altered mental status R41.82
[2022-08-03 20:13] VITALS: BP 116/78; PULSE 101; RESP 18; TEMP 36.6; O2SAT 98
[2022-08-03] MEDS: trazodone 50 mg Tablet PO (20:14)
[2022-08-04] MEDS: OLANZapine 5 mg ODT PO ×2 (04:43→09:23)
--- NOTE | 2022-08-04 04:53 | PC.NURSE ---
pt having a manic episode, pacing up and down hallway, crying, i miss my mom and dad. i have no people. . waking other pts up. zyprexa zydis 5mg SL given.
[2022-08-04 05:16] VITALS: BP 110/73; PULSE 103; RESP 20; TEMP 37.1; O2SAT 97
[2022-08-04] MEDS: paliperidone ER 6 mg Tablet 12 MG PO (07:35)
[2022-08-04] MEDS: ARIPiprazole 30 mg Tablet PO (07:35)
[2022-08-04] MEDS: divalproex DR 500 mg Tablet PO ×2 (07:36→19:56)
[2022-08-04] MEDS: nicotine 2 mg Gum BUCCAL ×2 (09:07→15:14)
--- NOTE | 2022-08-04 09:23 | PC.NURSE ---
PRN ZYPREXA ZYDIS 5 MG GIVEN PO PER PT REQUEST OF SOME ANXIETY MED AND PSYCHOSIS. PACING HALLWAY, RAPID PRESSURED SPEECH, WILL CONSTANTLY TALK TO HERSELF WHILE PACING HALLWAY, MUCH REDIRECTION FROM STAFF NEEDED
[2022-08-04] MEDS: haloperidol 5 mg Tablet PO (11:14)
[2022-08-04] MEDS: LORazepam 2 mg Tablet PO (11:14)
[2022-08-04] MEDS: diphenhydrAMINE 50 mg Capsule PO (11:14)
--- NOTE | 2022-08-04 11:15 | PC.NURSE ---
PRN HALDOL/ATIVAN/BENADRYL HALDOL 5 MG GIVEN PO WITH ATIVAN 2 MG PO AND BENADRYL 50 MG PO PER PT C/O INCREASED ANXIETY/AGITATION/PSYCHOSIS. LEFT GROUP, CONT TO PACE HALLWAY, TEARFUL, RAPID PRESSURED SPEECH CONTINUES. WORD SALAD, CONT TO TALK ABOUT HER PEOPLE AND OTHER NONSENSICAL STATEMENTS MADE. MUCH REDIRECTION BY STAFF PROVIDED. WILL CONT TO MONITOR.
[2022-08-04 14:00] VITALS: BP 103/68; PULSE 103; RESP 18; TEMP 36.4; O2SAT 98
--- NOTE | 2022-08-04 19:32 | P.NPUPN_ITS ---
Subjective NPU Subjective: Patient is a 31-year-old white female admitted involuntarily currently with a history of psychosis in the context of continued methamphetamine abuse. Patient continued to show evidence of mood dyscontrol on the unit as she had intense periods of crying followed by other periods of anger that had required the use of additional medications including Geodon. The patient reported that she was feeling back to normal but continued to appear confused and upset that she will look to see her andrew to her karin. Mental Status Exam MSE Comments: This is a slender cachectic white female who appeared much older than her stated age in hospital scrubs with poor grooming and poor eye contact. Poor dentition. There was no evidence of any abnormal involuntary motor movements appreciated with signs of improvement. Cooperative with exam in no acute distress. Mood described as good as it was going to get. Her affect was intense and labile. Thought process was nonlinear and perseverative with occasional clang associations and use of nonsense words and she has neologisms. thought content: Patient did not report suicidal or homicidal ideation, there were no delusions appreciated but continued evidence of overvalued ideas. She did not report auditory or visual hallucinations. Her attention and concentration appeared mostly intact and memory was more reliable but none were formally tested. She is alert and oriented x3. Insight, judgment and impulse control remained poor. Vitals/I&O/Wt Last Vital Signs Temp 97.6 F 08/04/22 14:00 Pulse 103 H 08/04/22 14:00 Resp 18 08/04/22 14:00 BP 103/68 08/04/22 14:00 Pulse Ox 98 08/04/22 14:00 O2 Del Method 08/04/22 05:16 Weight last 48 hrs Weight 70.534 kg A&P Assessment and plan (1) Psychosis: (2) Methamphetamine use disorder, severe: (3) Altered mental status: Plan This is a 31-year-old white female who looks notably altered in mental status and a presentation consistent with methamphetamine use who presents with psychosis, confusion emotional dysregulation with significant hyperkinetic activity. 1. Continue abilify at 30mg in am. Continued Invega 12 mg daily. May use augmentation versus switching. Continue Depakote DR 500 mg p.o. twice daily. 2. Continue every 15 minute checks for safety. 3. Encourage individual, group and milieu therapies. 4. Encourage sober living treatment after discharge at the highest level of car e to which she is willing to commit. Patient in need of inpatient substance abuse treatment. 5. She remains psychotic at this time, KAN testing completed which revealed several concerns regarding patient's ability to safely exist independently without support. 6. 21-day hold granted. Awaiting guardianship hearing from [facility]. Involuntary Hold Information 96 Hour Hold: 96 Hour Involuntary Admission: No Attestations NPU Medical Necessity Statement*: Inpatient hospitalization is medically necessary and the clinically appropriate intervention at this time. We will monitor/initiate medications and make changes as indicated with likely length of stay 9-17 days. Will likely be dependent on guardianship and placement Coding Level of Care Code Established Pt Acute Ammunition Assembly Ii Laborer for Briseida Hathaway Patient Type Established History Problem Focused Exam Problem Focused Medical Decision Making Straight Forward Diagnoses Psychosis F29 Methamphetamine use disorder, severe F15.20 Altered mental status R41.82
[2022-08-04] MEDS: trazodone 50 mg Tablet PO (19:56)
[2022-08-04] MEDS: hyDROXYzine 25 mg Capsule 50 MG PO (19:56)
[2022-08-04 20:56] VITALS: BP 101/67; PULSE 115; RESP 18; O2SAT 99
[2022-08-05 06:00] VITALS: BP 103/64; PULSE 104; RESP 18; TEMP 36.5; O2SAT 98
[2022-08-05] MEDS: ARIPiprazole 30 mg Tablet PO (08:18)
[2022-08-05] MEDS: paliperidone ER 6 mg Tablet 12 MG PO (08:21)
[2022-08-05] MEDS: divalproex DR 500 mg Tablet PO ×2 (08:21→19:49)
[2022-08-05] MEDS: OLANZapine 5 mg ODT PO (09:14)
[2022-08-05] MEDS: LORazepam 2 mg Tablet PO (10:13)
[2022-08-05] MEDS: diphenhydrAMINE 50 mg Capsule PO (10:13)
[2022-08-05] MEDS: nicotine 2 mg Gum BUCCAL (10:13)
[2022-08-05] MEDS: haloperidol 5 mg Tablet PO (10:13)
--- NOTE | 2022-08-05 10:15 | PC.NURSE ---
Pt medicated earlier with PRN zyprexa for increasing behavior. Pt came to staff about an hour later asking for something else as she recognized her feelings were beginning to overwhelm her. She became more vocal and tearful. Reassurance provided. Medicated. Redirection provided.
[2022-08-05 13:37] VITALS: BP 97/71; PULSE 116; RESP 20; TEMP 36.6; O2SAT 96
[2022-08-05] MEDS: ibuprofen 600 mg Tablet PO (14:02)
[2022-08-05] MEDS: nicotine 4 mg lozenge MUCOUS MEM (14:04)
--- NOTE | 2022-08-05 15:31 | P.NPUPN_ITS ---
Subjective NPU Subjective: Patient is a 31-year-old white female admitted involuntarily currently with a history of psychosis in the context of continued methamphetamine abuse. The patient continued to have episodes of emotional incontinence with periods of intense crying and odd behaviors including practicing karate that the patient described as anibal mehrdad on interview. Patient reports that she needed to leave here as soon as possible and reported that this was as good as it was going to get. She continued to require prompting for engaging in self-care and was minimally attentive in groups. She had spend much of her day making repeated requests for her medications and had required the use of as needed medications to manage agitation again today. Mental Status Exam MSE Comments: This is a slender cachectic white female who appeared much older than her stated age in hospital scrubs with poor grooming and poor eye contact. Poor dentition. There was no evidence of any abnormal involuntary motor movements appreciated with signs of improvement. Cooperative with exam in no acute distress. Mood described as all right. Her affect was intense and labile. Thought process was nonlinear and nonsensical with use of clang associations again. Thought content: Patient did not report suicidal or homicidal ideation, there were no delusions appreciated but continued evidence of overvalued ideas. She did not report auditory or visual hallucinations. Her attention and concentration appeared mostly intact and memory was more reliable but none were formally tested. She is alert and oriented x3. Insight, judgment and impulse control remained poor. Vitals/I&O/Wt Last Vital Signs Temp 97.9 F 08/05/22 13:37 Pulse 116 H 08/05/22 13:37 Resp 20 H 08/05/22 13:37 BP 97/71 08/05/22 13:37 Pulse Ox 96 08/05/22 13:37 O2 Del Method 08/04/22 05:16 A&P Assessment and plan (1) Psychosis: (2) Methamphetamine use disorder, severe: (3) Altered mental status: Plan This is a 31-year-old white female who looks notably altered in mental status and a presentation consistent with methamphetamine use who presents with psychosis, confusion emotional dysregulation with significant hyperkinetic activity. 1. Continue abilify at 30mg in am. Continued Invega 12 mg daily. May use augmentation versus switching. Continue Depakote DR 500 mg p.o. twice daily. 2. Continue every 15 minute checks for safety. 3. Encourage individual, group and milieu therapies. 4. Encourage sober living treatment after discharge at the highest level of care to which she is willing to commit. Patient in need of inpatient substance abuse treatment. 5. She remains psychotic at this time, KAN testing completed which revealed several concerns regarding patient's ability to safely exist independently without support. 6. 21-day hold granted. Awaiting guardianship hearing from [facility]. Involuntary Hold Information 96 Hour Hold: 96 Hour Involuntary Admission: No Attestations NPU Medical Necessity Statement*: Inpatient hospitalization is medically necessary and the clinically appropriate intervention at this time. We will monitor/initiate medications and make changes as indicated with likely length of stay 9-17 days. Will likely be dependent on guardianship and placement Coding Level of Care Code Established Pt Acute Alodize Machine Operator for Briseida Hathaway Patient Type Established History Problem Focused Exam Problem Focused Medical Decision Making Straight Forward Diagnoses Psychosis F29 Methamphetamine use disorder, severe F15.20 Altered mental status R41.82
[2022-08-05] MEDS: hyDROXYzine 25 mg Capsule 50 MG PO ×2 (17:55→19:48)
[2022-08-05] MEDS: trazodone 50 mg Tablet PO (19:49)
[2022-08-05 20:46] VITALS: BP 101/69; PULSE 98; RESP 17; O2SAT 98
[2022-08-06] MEDS: diphenhydrAMINE 50 mg Capsule PO ×2 (05:15→17:04)
[2022-08-06 05:51] VITALS: BP 106/70; PULSE 90; RESP 16; O2SAT 100
[2022-08-06] MEDS: hyDROXYzine 25 mg Capsule 50 MG PO (05:57)
[2022-08-06] MEDS: divalproex DR 500 mg Tablet PO ×2 (07:43→20:24)
[2022-08-06] MEDS: paliperidone ER 6 mg Tablet 12 MG PO (07:43)
[2022-08-06] MEDS: ARIPiprazole 30 mg Tablet PO (07:43)
--- NOTE | 2022-08-06 08:56 | PC.NURSE ---
ASSESSMENT COMPLETED. PT CONTINUES TO MAKE ODD STATEMENTS 999 CAN'T BE WRONG. RAMBLINGS WITH PRESSURED SPEECH MAKING NONSENSICAL STATEMENTS. COMES TO NURSES STATION AND RAISES HER HAND TO A TALK TO STAFF. DENIES SI/HI AND AVH AT THIS TIME. CONTINUES TO STATE SHE IS DR. BAY AND DR. ERNST. STATES SHE MISSES HER CHILDREN AND BECAME VERY TEARFUL DURING ASSESSMENT THEN STARTED LAUGHING UNCONTROLLABLY IN A MATTER OF SECONDS. NEEDS MET AT THIS TIME. VERBALLY REDIRECTED AND SUPPORT WAS VOICED.
[2022-08-06] MEDS: OLANZapine 5 mg ODT PO ×2 (09:23→20:24)
[2022-08-06] MEDS: haloperidol 5 mg Tablet PO ×2 (11:02→17:04)
--- NOTE | 2022-08-06 11:06 | PC.NURSE ---
PT CONTINUES TO BE ANXIOUS AND CRIES HYSTERICALLY THEN STARTS LAUGHING. ZYDIS WAS GIVEN PREVIOUSLY FROM [facility]. THIS RN ADMINISTERED HALDOL 5 MG PO ORDERED FOR INCREASED AGITATION.
[2022-08-06] MEDS: nicotine 2 mg Gum BUCCAL ×2 (11:24→18:36)
[2022-08-06 14:00] VITALS: BP 114/79; PULSE 98; RESP 20; TEMP 36.6; O2SAT 98
[2022-08-06] MEDS: LORazepam 2 mg Tablet PO (17:04)
--- NOTE | 2022-08-06 17:20 | W.PM.NPUPNS ---
Subjective NPU Subjective: Patient is a 31-year-old white female admitted involuntarily currently with a history of psychosis in the context of continued methamphetamine abuse. The patient continued to show evidence of disorganized behavior and disorganized thinking on the milieu. She continues to ramble about her children and has required continued use of as needed medications to manage her emotional incontinence. She continues to show evidence of periods of intense crying that resolves after a few minutes. She had denied any history of traumatic brain injury. She had acknowledged significant use of methamphetamine for several years. She reported no sleep changes. Mental Status Exam MSE Comments: This is a slender cachectic white female who appeared much older than her stated age in hospital scrubs with poor grooming and poor eye contact. Poor dentition. There was no evidence of any abnormal involuntary motor movements appreciated with signs of improvement. Cooperative with exam in no acute distress. Mood described as terrible. Her affect was labile with periods of intense crying seen lasting minutes. Thought process was nonlinear and nonsensical with use of clang associations again. Thought content: Patient did not report suicidal or homicidal ideation. There was continued presence of bizarre delusions. She did not report auditory or visual hallucinations. Her attention and concentration appeared mostly intact and memory was more reliable but none were formally tested. She is alert and oriented x3. Insight, judgment and impulse control remained poor. Vitals/I&O/Wt Last Vital Signs Temp 98 F 08/06/22 14:00 Pulse 98 08/06/22 14:00 Resp 20 H 08/06/22 14:00 BP 114/79 08/06/22 14:00 Pulse Ox 98 08/06/22 14:00 O2 Del Method 08/06/22 14:00 A&P Assessment and plan (1) Psychosis: (2) Methamphetamine use disorder, severe: (3) Altered mental status: Plan This is a 31-year-old white female who looks notably altered in mental status and a presentation consistent with methamphetamine use who presents with psychosis, confusion emotional dysregulation with significant hyperkinetic activity. 1. Continue abilify at 30mg in am. Continued Invega 12 mg daily[address] Continue Depakote [address] 500 mg p.o. twice daily. Will check depakote level, cbc with diff, ast/alt tommorow. 2. Continue every 15 minute checks for safety. 3. Encourage individual, group and milieu therapies. 4. Encourage sober living treatment after discharge at the highest level of care to which she is willing to commit. Patient in need of inpatient substance abuse treatment. 5. She remains psychotic at this time, KAN testing completed which revealed several concerns regarding patient's ability to safely exist independently without support. 6. 21-day hold granted. Awaiting guardianship hearing from [facility]. Involuntary Hold Information 96 Hour Hold: 96 Hour Involuntary Admission: No Attestations NPU Medical Necessity Statement*: Inpatient hospitalization is medically necessary and the clinically appropriate intervention at this time. We will monitor/initiate medications and make changes as indicated with likely length of stay 9-17 days. Will likely be dependent on guardianship and placement. Coding Level of Care Code Established Pt Acute Advertising Consultant for Briseida Hathaway Patient Type Established History Problem Focused Exam Problem Focused Medical Decision Making Straight Forward Diagnoses Psychosis F29 Methamphetamine use disorder, severe F15.20 Altered mental status R41.82
[2022-08-06] MEDS: trazodone 50 mg Tablet PO (20:24)
[2022-08-06 22:00] VITALS: RESP 17
[2022-08-07 06:00] VITALS: BP 109/75; PULSE 96; RESP 16; O2SAT 98
[2022-08-07] MEDS: ibuprofen 600 mg Tablet PO (06:08)
[2022-08-07 08:31] LABS: Basophils # 0.1 10^3/uL (0.0-0.1); Basophils % 0.9 %; Eosinophils # 0.5 10^3/uL (0.0-0.8); Eosinophils % 5.6 %; Hematocrit 38.2 % (37.0-47.0); Hemoglobin 12.6 g/dL (11.5-15.3); Lymphocytes # 2.5 10^3/uL (0.8-4.8); Lymphocytes % 28.1 %; Mean Corpuscular Volume 94.1 fl (81-99); Mean Platelet Volume 9.8 fL (7.4-10.4); Monocytes # 0.5 10^3/uL (0.2-0.9); Monocytes % 5.8 %; Neutrophils # 5.24 10^3/uL (1.8-7.7); Neutrophils % 59.4 %; Nucleated Red Blood Cells % 0 %; Platelet Count 358 10^3/cmm (130-400); Red Blood Count 4.06 10^6/uL (4.1-5.3); Red Cell Distribution Width 12.9 % (12.1-15.1); White Blood Count 8.8 10^3/uL (4.0-10.0)
[2022-08-07 08:52] LABS: Alanine Aminotransferase 22 U/L (0-33); Albumin Level 4.1 g/dL (3.5-5.2); Alkaline Phosphatase 71 U/L (35-105); Aspartate Amino Transferase 25 U/L (0-32); Total Bilirubin 0.2 mg/dL (0.15-1.2); Total Protein 7.1 g/dL (6.6-8.7); Valproic Acid Level 45.1 ug/mL (50-100)
[2022-08-07] MEDS: divalproex DR 500 mg Tablet PO (09:07)
[2022-08-07] MEDS: paliperidone ER 6 mg Tablet 12 MG PO (09:07)
[2022-08-07] MEDS: nicotine 2 mg Gum BUCCAL ×3 (09:07→15:49)
[2022-08-07] MEDS: ARIPiprazole 30 mg Tablet PO (09:07)
[2022-08-07] MEDS: nicotine 4 mg lozenge MUCOUS MEM (10:49)
[2022-08-07] MEDS: ziprasidone hcl 20 mg Capsule PO (11:08)
[2022-08-07] MEDS: OLANZapine 5 mg ODT PO ×2 (11:13→16:49)
[2022-08-07] MEDS: acetaminophen 325 mg Tablet 650 MG PO (11:13)
[2022-08-07 14:00] VITALS: BP 114/76; PULSE 111; RESP 19; TEMP 36.6; O2SAT 98
[2022-08-07] MEDS: hyDROXYzine 25 mg Capsule 50 MG PO (16:49)
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
[2022-08-07] MEDS: divalproex DR 250 mg Tablet 750 MG PO (19:20)
[2022-08-07 19:54] VITALS: BP 126/85; PULSE 112; RESP 18; TEMP 36.5; O2SAT 98
[2022-08-07] MEDS: diphenhydrAMINE 50 mg Capsule PO (20:33)
[2022-08-07] MEDS: haloperidol 5 mg Tablet PO (20:33)
[2022-08-07] MEDS: LORazepam 2 mg Tablet PO (20:33)
--- NOTE | 2022-08-07 20:34 | PC.NURSE ---
pt increasingly becoming agitated and anxious, pacing the hallway going from crying talking about her children dying to becoming angry stating she wants to go home. refusing medication but then relenting and taking them. administered prn medication for anxiety and agitation.
[2022-08-08 06:00] VITALS: BP 100/69; PULSE 111; RESP 17; TEMP 36.5; O2SAT 97
[2022-08-08] MEDS: divalproex DR 250 mg Tablet 750 MG PO ×2 (08:36→20:14)
[2022-08-08] MEDS: OLANZapine 5 mg ODT PO (08:36)
[2022-08-08] MEDS: hyDROXYzine 25 mg Capsule 50 MG PO (08:36)
[2022-08-08] MEDS: paliperidone ER 6 mg Tablet 12 MG PO (08:36)
[2022-08-08] MEDS: ARIPiprazole 30 mg Tablet PO (08:37)
[2022-08-08] MEDS: nicotine 2 mg Gum BUCCAL ×2 (09:41→13:16)
[2022-08-08] MEDS: haloperidol 5 mg Tablet PO (10:45)
[2022-08-08] MEDS: diphenhydrAMINE 50 mg Capsule PO (10:45)
[2022-08-08] MEDS: LORazepam 2 mg Tablet PO (10:45)
[2022-08-08] MEDS: ibuprofen 600 mg Tablet PO ×2 (12:17→20:13)
[2022-08-08 14:00] VITALS: RESP 18
[2022-08-08] MEDS: acetaminophen 325 mg Tablet 650 MG PO (16:44)
--- NOTE | 2022-08-08 18:18 | P.NPUPN_ITS ---
Subjective NPU Subjective: Patient is a 31-year-old white female admitted involuntarily currently with a history of psychosis in the context of continued methamphetamine abuse. Patient again appeared more alert and aware of her situations. She had less verbal and emotional outbursts noted today. Patient reported no side effects from her medication. She had continue to report having some pain in her tooth and had requested antibiotic for treatment of a tooth abscess. Patient reported having no thoughts of hurting herself or others. She had required 2 as needed medication doses for agitation today. She had reported adequate sleep. The patient had only made occasional references today to her bizarre belief system that appeared grounded in Magic. Mental Status Exam MSE Comments: This is a slender cachectic white female who appeared much older than her stated age in hospital scrubs with poor grooming and poor eye contact. Poor dentition. There was no evidence of any abnormal involuntary motor movements appreciated with signs of improvement. Cooperative with exam in no acute distress. Mood described as in pain Her affect was more steady with no open episodes of emotional incontinence. Thought process was more linear and logical with less bizarre associations noted, Thought content: Patient did not report suicidal or homicidal ideation. There was no clear evidence of delusional thinking but continued evidence of some overvalued ideas. She did not report auditory or visual hallucinations. Her attention and concentration appeared mostly intact and memory was more reliable but none were formally tested. She is alert and oriented x3. Insight, judgment and impulse control remained poor. Vitals/I&O/Wt Last Vital Signs Temp 97.7 F 08/08/22 06:00 Pulse 111 H 08/08/22 06:00 Resp 17 08/08/22 06:00 BP 100/69 08/08/22 06:00 Pulse Ox 97 08/08/22 06:00 O2 Del Method 08/07/22 19:54 Data NPU 08/07/22 08:21 A&P Assessment and plan (1) Psychosis: (2) Methamphetamine use disorder, severe: (3) Altered mental status: Plan This is a 31-year-old white female who looks notably altered in mental status and a presentation consistent with methamphetamine use who presents with psychosis, confusion emotional dysregulation with significant hyperkinetic activity. 1. Continue abilify at 30mg in am. Continued Invega 12 mg daily[address] Continue Depakote DR 750 mg p.o. twice daily as depakote level was only 45.2 with ast/alt/cbc with diff within normal range. -Appears to be improving. 3. Encourage individual, group and milieu therapies. 4. Encourage sober living treatment after discharge at the highest level of care to which she is willing to commit. Patient in need of inpatient substance abuse treatment. 5. She remains psychotic at this time, KAN testing completed which revealed several concerns regarding patient's ability to safely exist independently without support. 6. 21-day hold granted. Awaiting guardianship hearing from [facility]. Involuntary Hold Information 96 Hour Hold: 96 Hour Involuntary Admission: No Attestations NPU Medical Necessity Statement*: Inpatient hospitalization is medically necessary and the clinically appropriate intervention at this time. We will monitor/initiate medications and make changes as indicated with likely length of stay 9-17 days. Will likely be dependent on guardianship and placement. Coding Level of Care Code Established Pt Acute Metallurgical Lab Technician for Briseida Hathaway Patient Type Established History Problem Focused Exam Problem Focused Medical Decision Making Straight Forward Diagnoses Psychosis F29 Methamphetamine use disorder, severe F15.20 Altered mental status R41.82
[2022-08-08] MEDS: amoxicillin 500 mg Capsule PO (20:15)
[2022-08-08 20:31] VITALS: BP 97/67; PULSE 92; RESP 18; TEMP 36.2; O2SAT 96
[2022-08-09 06:00] VITALS: BP 94/52; PULSE 118; RESP 17; TEMP 36.7; O2SAT 97
[2022-08-09] MEDS: ibuprofen 600 mg Tablet PO ×2 (06:21→13:42)
[2022-08-09] MEDS: OLANZapine 5 mg ODT PO ×2 (06:41→15:00)
[2022-08-09] MEDS: hyDROXYzine 25 mg Capsule 50 MG PO (06:41)
--- NOTE | 2022-08-09 07:00 | PC.NURSE ---
pt requested prn anxiety medication. pt crying talking about family and going home. pacing the hallways.
[2022-08-09] MEDS: amoxicillin 500 mg Capsule PO ×3 (08:56→20:31)
[2022-08-09] MEDS: divalproex DR 250 mg Tablet 750 MG PO ×2 (08:56→20:31)
[2022-08-09] MEDS: ARIPiprazole 30 mg Tablet PO (08:56)
[2022-08-09] MEDS: ziprasidone hcl 20 mg Capsule PO (08:56)
[2022-08-09] MEDS: paliperidone ER 6 mg Tablet 12 MG PO (08:57)
[2022-08-09] MEDS: nicotine 2 mg Gum BUCCAL ×3 (09:00→14:59)
[2022-08-09] MEDS: haloperidol 5 mg Tablet PO ×2 (11:08→20:43)
[2022-08-09] MEDS: LORazepam 2 mg Tablet PO ×2 (11:08→20:43)
[2022-08-09] MEDS: diphenhydrAMINE 50 mg Capsule PO ×2 (11:08→20:43)
[2022-08-09 14:00] VITALS: BP 113/77; PULSE 124; RESP 18; TEMP 36.9; O2SAT 97
--- NOTE | 2022-08-09 16:37 | W.PM.NPUPNS ---
Subjective NPU Subjective: Patient presents today continuing to have small signs of cognitive improvement but still with extreme lability and tearfulness. She seems to be connecting with the holidays and being from her children but we continued to discuss her clear need for guardianship prior to the next step of recovery and treatment. This idea continues to upset her but she continues to make strides in the level of control she has after she is told no. Mental Status Exam MSE Comments: This is a slender white female who appeared much older than her stated age in hospital scrubs with limited grooming and but adequate eye contact. Poor dentition. There was no evidence of any abnormal involuntary motor movements appreciated with signs of improvement. Cooperative with exam in no acute distress. Speech was mostly normal rate and volume. Mood described as I am feeling better and ready to go her affect was more steady with limited episodes of emotional lability. Thought process was more linear and logical with less bizarre associations noted, Thought content: Patient did not report suicidal or homicidal ideation. There was no clear evidence of delusional thinking but continued evidence of some overvalued ideas. She did not report auditory or visual hallucinations. Her attention and concentration appeared mostly intact and memory was more reliable but none were formally tested. She is alert and oriented x3. Insight, judgment and impulse control remained poor. Vitals/I&O/Wt Last Vital Signs Temp 98.5 F 08/09/22 14:00 Pulse 124 H 08/09/22 14:00 Resp 18 08/09/22 14:00 BP 113/77 08/09/22 14:00 Pulse Ox 97 08/09/22 14:00 O2 Del Method 08/09/22 14:00 Weight last 48 hrs Weight 70.534 kg Data NPU 08/07/22 08:21 A&P Assessment and plan (1) Psychosis: (2) Methamphetamine use disorder, severe: (3) Altered mental status: Plan This is a 31-year-old white female who looks notably altered in mental status and a presentation consistent with methamphetamine use who presents with psychosis, confusion emotional dysregulation with significant hyperkinetic activity. 1. Continue abilify at 30mg in am. Continued Invega 12 mg daily[address] Continue Depakote DR 750 mg p.o. twice daily as depakote level was only 45.2 with ast/alt/cbc with diff within normal range. -Appears to be improving. 3. Encourage individual, group and milieu therapies. 4. Encourage sober living treatment after discharge at the highest level of care to which she is willing to commit. Patient in need of inpatient substance abuse treatment. 5. She remains psychotic at this time, KAN testing completed which revealed several concerns regarding patient's ability to safely exist independently without support. 6. 21-day hold granted. Awaiting guardianship hearing from [facility]. Involuntary Hold Information 96 Hour Hold: 96 Hour Involuntary Admission: No Attestations NPU Medical Necessity Statement*: Inpatient hospitalization is medically necessary and the clinically appropriate intervention at this time. We will monitor/initiate medications and make changes as indicated with likely length of stay 9-17 days. Will likely be dependent on guardianship and placement. Coding Level of Care Code Acute Photographic Spotter for Briseida Hathaway Diagnoses Psychosis F29 Methamphetamine use disorder, severe F15.20 Altered mental status R41.82
[2022-08-09] MEDS: trazodone 50 mg Tablet PO (20:31)
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
--- NOTE | 2022-08-09 22:00 | PC.NURSE ---
Patient resting in bed quietly with eyes closed at this time. No further behavior's after PRN administration earlier in shift.
[2022-08-10 06:00] VITALS: BP 101/71; PULSE 108; RESP 17; TEMP 36.9; O2SAT 97
[2022-08-10] MEDS: hyDROXYzine 25 mg Capsule 50 MG PO (06:55)
[2022-08-10] MEDS: ziprasidone hcl 20 mg Capsule PO (08:25)
[2022-08-10] MEDS: ibuprofen 600 mg Tablet PO (08:25)
[2022-08-10] MEDS: ARIPiprazole 30 mg Tablet PO (08:25)
[2022-08-10] MEDS: paliperidone ER 6 mg Tablet 12 MG PO (08:25)
[2022-08-10] MEDS: divalproex DR 250 mg Tablet 750 MG PO ×2 (08:25→19:35)
[2022-08-10] MEDS: benztropine 1 mg Tablet PO (08:25)
[2022-08-10] MEDS: amoxicillin 500 mg Capsule PO ×3 (08:27→19:35)
--- NOTE | 2022-08-10 08:28 | PC.NURSE ---
PRN GEODON 20 MG GIVEN PO PER PT C/O AGITATION/SOME ANXIETY. PACING UNIT, REDIRECTED BY STAFF OFTEN
[2022-08-10] MEDS: nicotine 2 mg Gum BUCCAL ×2 (09:44→11:56)
--- NOTE | 2022-08-10 10:04 | W.PM.NPUPNS ---
Subjective NPU Subjective: Patient presents today seeming to have some improving stability of cognitive functioning with less derailments but she continues to have significant emotional distress surrounding guardianship, not being discharged and reported desire to engage with her children. In each day's appointment she asks if she can discharge on that day in some disorganized way. She then walks away upset that the answer was not yes. Today was no different with this pattern. Mental Status Exam MSE Comments: This is a slender white female who appeared much older than her stated age in hospital scrubs with limited grooming and but adequate eye contact. Poor dentition. There was no evidence of any abnormal involuntary motor movements appreciated with signs of improvement in previous hyperkinetic behaviors. Cooperative with exam in no acute distress mostly except for when she is told she cannot discharge. Speech was mostly normal rate and volume. Mood described as better, her affect was more steady with limited episodes of emotional lability. Thought process was more linear and logical with less bizarre associations noted, Thought content: Patient did not report suicidal or homicidal ideation. There was no clear evidence of delusional thinking but continued evidence of some overvalued ideas. She did not report auditory or visual hallucinations. Her attention and concentration appeared mostly intact and memory was more reliable but none were formally tested. She is alert and oriented x3. Insight, judgment and impulse control remained poor. Vitals/I&O/Wt Last Vital Signs Temp 98.4 F 08/10/22 06:00 Pulse 108 H 08/10/22 06:00 Resp 17 08/10/22 06:00 BP 101/71 08/10/22 06:00 Pulse Ox 97 08/10/22 06:00 O2 Del Method 08/10/22 06:00 Weight last 48 hrs Weight 70.534 kg Data NPU 08/07/22 08:21 A&P Assessment and plan (1) Psychosis: (2) Methamphetamine use disorder, severe: (3) Altered mental status: Plan This is a 31-year-old white female who looks notably altered in mental status and a presentation consistent with methamphetamine use who presents with psychosis, confusion emotional dysregulation with significant hyperkinetic activity. 1. Continue abilify at 30mg in am. Continued Invega 12 mg daily. Continued Depakote DR 750 mg p.o. twice daily as depakote level was only 45.2 with ast/alt/cbc with diff within normal range. -Appears to be improving. 3. Encourage individual, group and milieu therapies. 4. Encourage sober living treatment after discharge at the highest level of care to which she is willing to commit. Patient in need of inpatient substance abuse treatment. 5. She remains psychotic at this time, KAN testing completed which revealed several concerns regarding patient's ability to safely exist independently without support. 6. 21-day hold granted. Awaiting guardianship hearing from [facility]. Involuntary Hold Information 96 Hour Hold: 96 Hour Involuntary Admission: No Attestations NPU Medical Necessity Statement*: Inpatient hospitalization is medically necessary and the clinically appropriate intervention at this time. We will monitor/initiate medications and make changes as indicated with likely length of stay 9-17 days. Will likely be dependent on guardianship and placement. Coding Level of Care Code Acute Service Representative for Briseida Hathaway Diagnoses Psychosis F29 Methamphetamine use disorder, severe F15.20 Altered mental status R41.82
[2022-08-10] MEDS: LORazepam 2 mg Tablet PO (11:27)
[2022-08-10] MEDS: haloperidol 5 mg Tablet PO (11:27)
--- NOTE | 2022-08-10 11:28 | PC.NURSE ---
PRN HALDOL/ATIVAN HALDOL 5 MG GIVEN PO WITH ATIVAN 2 MG PO PER PT C/O ANXIETY AND REQUEST OF ANXIETY MED
[2022-08-10 14:00] VITALS: BP 107/72; PULSE 107; RESP 16; TEMP 36.6; O2SAT 97
[2022-08-10] MEDS: ondansetron 4 MG Tablet PO (14:33)
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
[2022-08-10] MEDS: OLANZapine 5 mg ODT PO (16:38)
--- NOTE | 2022-08-10 16:38 | PC.NURSE ---
PRN ZYPREXA ZYDIS 5 MG GIVEN PO SUBLINGUAL PER PT C/O STATED ANXIETY/AGITATION. TEARFUL AND UPSET AFTER PHONE CALL, CRYING ASKING STAFF PLEASE FOR MORE ANXIETY MEDS
[2022-08-10 19:58] VITALS: BP 103/72; PULSE 109; RESP 18; O2SAT 98
[2022-08-11] MEDS: ibuprofen 600 mg Tablet PO (05:21)
[2022-08-11 06:00] VITALS: BP 138/100; PULSE 134; RESP 18; O2SAT 90
[2022-08-11] MEDS: OLANZapine 5 mg ODT PO (06:39)
[2022-08-11] MEDS: paliperidone ER 6 mg Tablet 12 MG PO (08:50)
[2022-08-11] MEDS: ARIPiprazole 30 mg Tablet PO (08:51)
[2022-08-11] MEDS: divalproex DR 250 mg Tablet 750 MG PO ×2 (08:51→19:08)
[2022-08-11] MEDS: amoxicillin 500 mg Capsule PO ×3 (08:51→19:05)
--- NOTE | 2022-08-11 11:48 | P.NPUPN_ITS ---
Subjective NPU Subjective: Patient presents today continuing to have some improving stability in cognitive functioning with less derailments and she had no significant emotional distress surrounding guardianship, not being discharge. She continued the trend of being more social/less isolative on the unit. Mental Status Exam MSE Comments: This is a slender white female who appeared much older than her stated age in hospital scrubs with limited grooming and but adequate eye contact. Poor dentition. There was no evidence of any abnormal involuntary motor movements appreciated with signs of improvement in previous hyperkinetic behaviors. Cooperative with exam in no acute distress. Speech was mostly normal rate and volume. Mood described as better, her affect was more steady with limited episodes of emotional lability. Thought process was more linear and logical with less bizarre associations noted, Thought content: Patient did not report suicidal or homicidal ideation. There was no clear evidence of delusional thinking but continued evidence of some overvalued ideas. She did not report auditory or visual hallucinations. Her attention and concentration appeared mostly intact and memory was more reliable but none were formally tested. She is alert and oriented x3. Insight, judgment and impulse control remained poor. Vitals/I&O/Wt Last Vital Signs Temp 98 F 08/10/22 14:00 Pulse 109 H 08/10/22 19:58 Resp 18 08/10/22 19:58 BP 103/72 08/10/22 19:58 Pulse Ox 98 08/10/22 19:58 O2 Del Method 08/10/22 14:00 Weight last 48 hrs Weight 70.534 kg Data NPU 08/07/22 08:21 A&P Assessment and plan (1) Psychosis: (2) Methamphetamine use disorder, severe: (3) Altered mental status: Plan This is a 31-year-old white female who looks notably altered in mental status and a presentation consistent with methamphetamine use who presents with psychosis, confusion emotional dysregulation with significant hyperkinetic activity. 1. Continue abilify at 30mg in am. Continued Invega 12 mg daily. Continued Depakote DR 750 mg p.o. twice daily as depakote level was only 45.2 08/07/2022 with ast/alt/cbc with diff within normal range. -Appears to be improving. 3. Encourage individual, group and milieu therapies. 4. Encourage sober living treatment after discharge at the highest level of care to which she is willing to commit. Patient in need of inpatient substance abuse treatment. 5. She remains psychotic at this time, KAN testing completed which revealed several concerns regarding patient's ability to safely exist independently without support. 6. 21-day hold granted. Awaiting guardianship hearing from [facility]. Involuntary Hold Information 96 Hour Hold: 96 Hour Involuntary Admission: No Attestations NPU Medical Necessity Statement*: Inpatient hospitalization is medically necessary and the clinically appropriate intervention at this time. We will monitor/ initiate medications and make changes as indicated with likely length of stay 9- 17 days. Will likely be dependent on guardianship and placement. Coding Level of Care Code Acute Research Associate Molecular Biology for Briseida Fwd Diagnoses Psychosis F29 Methamphetamine use disorder, severe F15.20 Altered mental status R41.82
[2022-08-11] MEDS: nicotine 2 mg Gum BUCCAL ×3 (12:28→16:47)
[2022-08-11 14:00] VITALS: BP 103/63; PULSE 109; RESP 17; TEMP 36.7; O2SAT 99
[2022-08-11] MEDS: LORazepam 2 mg Tablet PO ×2 (16:14→21:28)
[2022-08-11] MEDS: diphenhydrAMINE 50 mg Capsule PO ×2 (16:14→21:28)
[2022-08-11] MEDS: haloperidol 5 mg Tablet PO ×2 (16:15→21:28)
--- NOTE | 2022-08-11 19:20 | PC.NURSE ---
Pt jumping and running in the hallway. Pt noted getting in other pt's space and agitating them. Pt given HS meds and an oral B52 consisting of Benadryl 50mg po, ativan 2mg po, and Haldol 5mg po.
[2022-08-11 20:27] VITALS: BP 106/59; PULSE 105; RESP 16; O2SAT 98
--- NOTE | 2022-08-11 23:00 | PC.NURSE ---
Pt resting quietly with both eyes closed at this time.
[2022-08-12 06:00] VITALS: BP 101/72; PULSE 108; RESP 18; TEMP 36.8; O2SAT 99
[2022-08-12] MEDS: nicotine 2 mg Gum BUCCAL ×3 (07:38→20:43)
[2022-08-12] MEDS: amoxicillin 500 mg Capsule PO ×3 (08:33→19:41)
[2022-08-12] MEDS: divalproex DR 250 mg Tablet 750 MG PO ×2 (08:33→19:41)
[2022-08-12] MEDS: ARIPiprazole 30 mg Tablet PO (08:33)
[2022-08-12] MEDS: paliperidone ER 6 mg Tablet 12 MG PO (08:33)
[2022-08-12] MEDS: OLANZapine 5 mg ODT PO ×2 (10:26→14:48)
[2022-08-12] MEDS: hyDROXYzine 25 mg Capsule 50 MG PO (10:26)
[2022-08-12] MEDS: benzocaine 20% 7 gm 1 APPLIC MUCOUS MEM ×2 (11:36→18:12)
[2022-08-12] MEDS: ibuprofen 600 mg Tablet PO ×2 (11:41→17:49)
[2022-08-12 14:00] VITALS: BP 120/77; PULSE 102; RESP 18; O2SAT 98
--- NOTE | 2022-08-12 18:11 | P.NPUPN_ITS ---
Subjective NPU Subjective: Patient is a 31-year-old white female with polysubstance abuse admitted with active psychosis. Patient continues to show evidence of some improvement on the milieu with decreased isolation and less frequent episodes of emotional incontinence. She reports no thoughts of hurting herself or others. She reports that her anxiety has been better and that she is looking forward to going home. She has shown evidence of improved self-care on the milieu. She continued to report pain from the infected tooth. Mental Status Exam MSE Comments: This is a slender white female who appeared much older than her stated age in hospital scrubs with limited grooming and but adequate eye contact. Poor dentition. There was no evidence of any abnormal involuntary motor movements appreciated with signs of improvement in previous hyperkinetic behaviors. Cooperative with exam in no acute distress. Speech was mostly normal rate and volume. Mood described as better, Her affect was more steady with limited episodes of emotional lability. Thought process was more linear and logical with less bizarre associations noted, Thought content: Patient did not report suicidal or homicidal ideation. There was no clear evidence of delusional thinking but continued evidence of some overvalued ideas. She did not report auditory or visual hallucinations. Her attention and concentration appeared mostly intact and memory was more reliable but none were formally tested. She is alert and oriented x3. Insight, judgment and impulse control remained poor. Vitals/I&O/Wt Last Vital Signs Temp 98.2 F 08/12/22 06:00 Pulse 102 H 08/12/22 14:00 Resp 18 08/12/22 14:00 BP 120/77 08/12/22 14:00 Pulse Ox 98 08/12/22 14:00 O2 Del Method 08/10/22 14:00 Data NPU 08/07/22 08:21 A&P Assessment and plan (1) Psychosis: (2) Methamphetamine use disorder, severe: (3) Altered mental status: Plan This is a 31-year-old white female who looks notably altered in mental status and a presentation consistent with methamphetamine use who presents with psychosis, confusion emotional dysregulation with significant hyperkinetic activity. 1. Continue abilify at 30mg in am. Continued Invega 12 mg daily. Continued Depakote DR 750 mg p.o. twice daily as depakote level was only 45.2 08/07/2022 with ast/alt/cbc with diff within normal range. -Appears to be improving. 3. Encourage individual, group and milieu therapies. 4. Encourage sober living treatment after discharge at the highest level of care to which she is willing to commit. Patient in need of inpatient substance abuse treatment. 5. She remains psychotic at this time, KAN testing completed which revealed several concerns regarding patient's ability to safely exist independently without support. 6. 21-day hold granted. Awaiting guardianship hearing from [facility]. Involuntary Hold Information 96 Hour Hold: 96 Hour Involuntary Admission: No Attestations NPU Medical Necessity Statement*: Inpatient hospitalization is medically necessary and the clinically appropriate intervention at this time. We will monitor/initiate medications and make changes as indicated with likely length of stay 9-17 days. Will likely be dependent on guardianship and placement. Coding Level of Care Code Established Pt Acute [place] Management Specialist for Briseida Hathaway Patient Type Established History Problem Focused Exam Problem Focused Medical Decision Making Straight Forward Diagnoses Psychosis F29 Methamphetamine use disorder, severe F15.20 Altered mental status R41.82
[2022-08-12] MEDS: diphenhydrAMINE 50 mg Capsule PO (19:41)
[2022-08-12] MEDS: haloperidol 5 mg Tablet PO (19:41)
[2022-08-12] MEDS: LORazepam 2 mg Tablet PO (19:41)
[2022-08-12 20:25] VITALS: BP 113/68; PULSE 94; RESP 17; TEMP 523.8; TEMP 975; O2SAT 97
[2022-08-13] MEDS: diphenhydrAMINE 50 mg Capsule PO ×2 (00:14→12:17)
[2022-08-13] MEDS: LORazepam 2 mg Tablet PO ×2 (00:14→12:17)
[2022-08-13] MEDS: haloperidol 5 mg Tablet PO ×2 (00:14→12:17)
[2022-08-13] MEDS: ibuprofen 600 mg Tablet PO ×2 (05:48→18:00)
[2022-08-13 06:00] VITALS: BP 108/77; PULSE 94; RESP 18; TEMP 36.6; O2SAT 96
[2022-08-13] MEDS: ARIPiprazole 30 mg Tablet PO (08:25)
[2022-08-13] MEDS: divalproex DR 250 mg Tablet 750 MG PO ×2 (08:25→19:56)
[2022-08-13] MEDS: amoxicillin 500 mg Capsule PO ×3 (08:25→19:56)
[2022-08-13] MEDS: paliperidone ER 6 mg Tablet 12 MG PO (08:26)
[2022-08-13] MEDS: benzocaine 20% 7 gm 1 APPLIC MUCOUS MEM ×2 (08:27→18:00)
[2022-08-13] MEDS: acetaminophen 325 mg Tablet 650 MG PO (08:30)
[2022-08-13 14:00] VITALS: BP 114/74; PULSE 108; RESP 18; TEMP 36.8; O2SAT 97
--- NOTE | 2022-08-13 14:58 | W.PM.NPUPNS ---
Subjective NPU Subjective: Patient is a 31-year-old white female with polysubstance abuse admitted with active psychosis. The patient reports that she has a place to stay and states that she needed to get home to receive her children. She had not required any as needed medications yesterday for agitation. Staff notes the patient has been more steady with less frequent episodes of emotional incontinence. She had acknowledged that methamphetamine may promote more mood instability and problems with reality when she uses it and states that she is willing to get help regarding this matter. Mental Status Exam MSE Comments: This is a slender white female who appeared much older than her stated age in hospital scrubs with limited grooming and but adequate eye contact. Poor dentition. There was no evidence of any abnormal involuntary motor movements appreciated. Cooperative with exam in no acute distress. Speech was mostly normal rate and volume. Mood described as okay. Her affect was more steady with limited episodes of emotional incontinence evident during the interview. Thought process was more linear and logical with less use of neologisms. Thought content: Patient did not report suicidal or homicidal ideation. There was no clear evidence of delusional thinking but continued evidence of some overvalued ideas. She did not report auditory or visual hallucinations. Her attention and concentration appeared mostly intact and memory was more reliable but none were formally tested. She is alert and oriented x3. Insight, judgment and impulse control remained poor. Vitals/I&O/Wt Last Vital Signs Temp 97.9 F 08/13/22 06:00 Pulse 94 08/13/22 06:00 Resp 18 08/13/22 06:00 BP 108/77 08/13/22 06:00 Pulse Ox 96 08/13/22 06:00 O2 Del Method 08/10/22 14:00 Data NPU 08/07/22 08:21 A&P Assessment and plan (1) Psychosis: (2) Methamphetamine use disorder, severe: (3) Altered mental status: Plan This is a 31-year-old white female who looks notably altered in mental status and a presentation consistent with methamphetamine use who presents with psychosis, confusion emotional dysregulation with significant hyperkinetic activity. 1. Continue abilify at 30mg in am. Continued Invega 12 mg daily. Continued Depakote DR 750 mg p.o. twice daily as depakote level was only 45.2 08/07/2022 with ast/alt/cbc with diff within normal range. -Appears to be improving. 3. Encourage individual, group and milieu therapies. 4. Encourage sober living treatment after discharge at the highest level of care to which she is willing to commit. Patient in need of inpatient substance abuse treatment. 5. Signficant improvment noted-repeat KAN testing? 6. 21-day hold granted. Awaiting guardianship hearing from [facility]. Involuntary Hold Information 96 Hour Hold: 96 Hour Involuntary Admission: No Attestations NPU Medical Necessity Statement*: Inpatient hospitalization is medically necessary and the clinically appropriate intervention at this time. We will monitor/initiate medications and make changes as indicated with likely length of stay 9-17 days. Will likely be dependent on guardianship and placement. Coding Level of Care Code Established Pt Acute Provider Contracting Consultant for Briseida Hathaway Patient Type Established History Problem Focused Exam Problem Focused Medical Decision Making Straight Forward Diagnoses Psychosis F29 Methamphetamine use disorder, severe F15.20 Altered mental status R41.82
[2022-08-13] MEDS: nicotine 2 mg Gum BUCCAL (16:24)
[2022-08-13 22:00] VITALS: BP 114/71; PULSE 108; RESP 16; TEMP 36.4; O2SAT 96
[2022-08-14 06:00] VITALS: BP 113/78; PULSE 98; RESP 16; TEMP 36.6; O2SAT 94
[2022-08-14] MEDS: amoxicillin 500 mg Capsule PO ×3 (09:19→20:11)
[2022-08-14] MEDS: divalproex DR 250 mg Tablet 750 MG PO ×2 (09:19→20:10)
[2022-08-14] MEDS: paliperidone ER 6 mg Tablet 12 MG PO (09:19)
[2022-08-14] MEDS: ARIPiprazole 30 mg Tablet PO (09:19)
[2022-08-14] MEDS: ibuprofen 600 mg Tablet PO (10:33)
[2022-08-14] MEDS: haloperidol 5 mg Tablet PO (10:33)
[2022-08-14] MEDS: diphenhydrAMINE 50 mg Capsule PO (10:33)
[2022-08-14] MEDS: LORazepam 2 mg Tablet PO (10:33)
[2022-08-14] MEDS: nicotine 2 mg Gum BUCCAL (10:45)
[2022-08-14 14:00] VITALS: RESP 18
--- NOTE | 2022-08-14 17:08 | W.PM.NPUPNS ---
Subjective NPU Subjective: Patient is a 31-year-old white female with polysubstance abuse admitted with active psychosis. Patient appeared more focused on the unit. She reported no side effects from her medication. She continued to minimize the potential effects of drugs and how it had to an exacerbation of her psychosis. She was more awake and compliant on the milieu while attending groups. She reports desire to return home to her car but states that she has a place to stay currently. 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 Mental Status Exam MSE Comments: This is a slender white female who appeared much older than her stated age in hospital scrubs with limited grooming and but adequate eye contact. Poor dentition. There was no evidence of any abnormal involuntary motor movements appreciated. Cooperative with exam in no acute distress. Speech was mostly normal rate and volume. Mood described as better. Her affect was more steady with brief limited episodes of emotional incontinence triggered by discussion of her children. Thought process was more linear and logical with no use of neologisms today. Thought content: Patient did not report suicidal or homicidal ideation. There was no clear evidence of delusional thinking but continued evidence of some overvalued ideas. She did not report auditory or visual hallucinations. Her attention and concentration appeared mostly intact and memory was more reliable but none were formally tested. She is alert and oriented x3. Insight, judgment and impulse control remained poor. Vitals/I&O/Wt Last Vital Signs Temp 97.9 F 08/14/22 06:00 Pulse 98 08/14/22 06:00 Resp 18 08/14/22 14:00 BP 113/78 08/14/22 06:00 Pulse Ox 94 08/14/22 06:00 O2 Del Method 08/14/22 06:00 Data NPU 08/07/22 08:21 A&P Assessment and plan (1) Psychosis: (2) Methamphetamine use disorder, severe: (3) Altered mental status: Plan This is a 31-year-old white female who looks notably altered in mental status and a presentation consistent with methamphetamine use who presents with psychosis, confusion emotional dysregulation with significant hyperkinetic activity. 1. Continue abilify at 30mg in am. Continued Invega 12 mg daily. Continued Depakote DR 750 mg p.o. twice daily as depakote level was only 45.2 08/07/2022 with ast/alt/cbc with diff within normal range. -Appears to be improving. 3. Encourage individual, group and milieu therapies. 4. Encourage sober living treatment after discharge at the highest level of care to which she is willing to commit. Patient in need of inpatient substance abuse treatment. 5. Signficant improvment noted-we will repeat KAN testing? 6. 21-day hold granted. Awaiting guardianship hearing from [facility]. Involuntary Hold Information 96 Hour Hold: 96 Hour Involuntary Admission: No Attestations NPU Medical Necessity Statement*: Inpatient hospitalization is medically necessary and the clinically appropriate intervention at this time. We will monitor/initiate medications and make changes as indicated with likely length of stay 9-17 days. Will likely be dependent on guardianship and placement. Coding Level of Care Code Established Pt Acute Medical Insurance Claims Processor for Brsieida Hathaway Patient Type Established History Problem Focused Exam Problem Focused Medical Decision Making Straight Forward Diagnoses Psychosis F29 Methamphetamine use disorder, severe F15.20 Altered mental status R41.82
[2022-08-14 22:00] VITALS: BP 104/72; PULSE 99; RESP 16; TEMP 36.7; O2SAT 98
[2022-08-15 06:00] VITALS: RESP 17
[2022-08-15] MEDS: amoxicillin 500 mg Capsule PO (08:26)
[2022-08-15] MEDS: paliperidone ER 6 mg Tablet 12 MG PO (08:26)
[2022-08-15] MEDS: ARIPiprazole 30 mg Tablet PO (08:26)
[2022-08-15] MEDS: nicotine 2 mg Gum BUCCAL ×2 (08:30→10:11)
[2022-08-15] MEDS: divalproex DR 250 mg Tablet 750 MG PO ×2 (08:30→19:53)
[2022-08-15] MEDS: hyDROXYzine 25 mg Capsule 50 MG PO ×2 (10:14→20:15)
[2022-08-15] MEDS: OLANZapine 5 mg ODT PO (10:14)
[2022-08-15] MEDS: LORazepam 2 mg Tablet PO (12:14)
[2022-08-15] MEDS: diphenhydrAMINE 50 mg Capsule PO (12:14)
[2022-08-15] MEDS: haloperidol 5 mg Tablet PO (12:14)
--- NOTE | 2022-08-15 12:17 | PC.NURSE ---
Pt experiencing extreme anxiety, administered a oral B52, pt was yelling and screaming.
[2022-08-15 14:00] VITALS: BP 104/72; BP 108/73; PULSE 109; PULSE 99; RESP 17; RESP 18; TEMP 36.7; TEMP 36.9; O2SAT 98
--- NOTE | 2022-08-15 16:55 | PC.OT ---
RANDOLPH Duarte Held - Orders for KAN on this patient on this day, assessment held at this time until performing therapist is able to schedule evaluation.
--- NOTE | 2022-08-15 17:45 | P.NPUPN_ITS ---
Subjective NPU Subjective: Patient is a 31-year-old white female with polysubstance abuse admitted with active psychosis. The patient described feeling frustrated at being here but states that she feels that she is making progress. She had isolated herself on the milieu today and had appropriately stepped away from fr om a volatile situation on the milieu stating that she had continued to wish to show that she was ready to return home. She had improved ability to socialize with continued presence of brief periods of emotional incontinence occurring when she discusses her children. She continued to perseverate about wanting to see her ex-boyfriend despite allegations of his inappropriate behavior towards her child. The patient reported feeling hopeful. She reported adequate sleep. Mental Status Exam MSE Comments: This is a slender white female who appeared much older than her stated age in hospital scrubs with limited grooming and but adequate eye contact. Poor dentition. There was no evidence of any abnormal involuntary motor movements appreciated. Cooperative with exam in no acute distress. Speech was mostly normal in rate and volume. Mood described as better. Her affect was flat with patient having some periods of emotional incontinence. Thought process was more linear and logical with no use of neologisms today. Thought content: Patient did not report suicidal or homicidal ideation. There was no clear evidence of delusional thinking but continued evidence of some overvalued ideas. She did not report auditory or visual hallucinations. Her attention and concentration appeared mostly intact and memory was more reliable but none were formally tested. She is alert and oriented x3. Insight, judgment and impulse control remained poor. Vitals/I&O/Wt Last Vital Signs Temp 98.5 F 08/15/22 14:00 Pulse 109 H 08/15/22 14:00 Resp 18 08/15/22 14:00 BP 108/73 08/15/22 14:00 Pulse Ox 98 08/15/22 14:00 O2 Del Method 08/15/22 14:00 Data NPU 08/07/22 08:21 A&P Assessment and plan (1) Psychosis: (2) Methamphetamine use disorder, severe: (3) Altered mental status: Plan This is a 31-year-old white female who looks notably altered in mental status and a presentation consistent with methamphetamine use who presents with psychos is, confusion emotional dysregulation with significant hyperkinetic activity. 1. Continue abilify at 30mg in am. Continued Invega 12 mg daily. Continued Depakote DR 750 mg p.o. twice daily. 3. Encourage individual, group and milieu therapies. 4. Encourage sober living treatment after discharge at the highest level of care to which she is willing to commit. Patient in need of inpatient substance abuse treatment. 5. Signficant improvment noted-we will repeat KAN testing on thursday 6. 21-day hold granted. Awaiting guardianship hearing from [facility]. Involuntary Hold Information 96 Hour Hold: 96 Hour Involuntary Admission: No Attestations NPU Medical Necessity Statement*: Inpatient hospitalization is medically necessary and the clinically appropriate intervention at this time. We will monitor/initiate medications and make changes as indicated with likely length of stay 9-17 days. Will likely be dependent on guardianship and placement. Coding Level of Care Code Established Pt Acute Homeowner Association Manager for Briseida Hathaway Patient Type Established History Problem Focused Exam Problem Focused Medical Decision Making Straight Forward Diagnoses Psychosis F29 Methamphetamine use disorder, severe F15.20 Altered mental status R41.82
[2022-08-15] MEDS: trazodone 50 mg Tablet PO (20:15)
[2022-08-15 21:41] VITALS: BP 108/73; PULSE 107; RESP 18; TEMP 37; O2SAT 97
[2022-08-16 06:00] VITALS: RESP 18
[2022-08-16] MEDS: ARIPiprazole 30 mg Tablet PO (08:22)
[2022-08-16] MEDS: divalproex DR 250 mg Tablet 750 MG PO ×2 (08:22→20:20)
[2022-08-16] MEDS: nicotine 2 mg Gum BUCCAL (08:22)
[2022-08-16] MEDS: paliperidone ER 6 mg Tablet 12 MG PO (08:22)
[2022-08-16] MEDS: LORazepam 2 mg Tablet PO ×2 (10:18→17:26)
[2022-08-16 14:00] VITALS: BP 110/78; PULSE 100; RESP 17; TEMP 36.8; O2SAT 97
--- NOTE | 2022-08-16 14:54 | W.PM.NPUPNS ---
Subjective NPU Subjective: Patient is a 31-year-old white female with polysubstance abuse admitted with active psychosis. The patient had appeared much better on the unit. She did continue to have some periods of emotional incontinence that could be heard throughout the hallway as she lamented not being with her children. 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 The patient had continued to receive as needed medications for agitation yesterday. She had stated that she was trying to steer away from any negative influences that would prevent her from leaving the hospital here. She had been more social and verbal in groups. She had performed the KAN test today with the patient reporting that she felt that she had done well. She reports not recalling taking the first KAN test a few weeks ago. Mental Status Exam MSE Comments: This is a slender white female who appeared much older than her stated age in hospital scrubs with limited grooming and but adequate eye contact. Poor dentition. There was no evidence of any abnormal involuntary motor movements appreciated. Cooperative with exam in no acute distress. Speech was mostly normal in rate and volume. Mood described as better. Her affect was flat with continued evidence of emotional incontinence. Thought process was more linear and logical with no use of neologisms today. Thought content: Patient did not report suicidal or homicidal ideation. There was no clear evidence of delusional thinking but continued evidence of some overvalued ideas. She did not report auditory or visual hallucinations. Her attention and concentration appeared mostly intact and memory was more reliable but none were formally tested. She is alert and oriented x3. Insight, judgment and impulse control remained poor. Vitals/I&O/Wt Last Vital Signs Temp 98.2 F 08/16/22 14:00 Pulse 100 08/16/22 14:00 Resp 17 08/16/22 14:00 BP 110/78 08/16/22 14:00 Pulse Ox 97 08/16/22 14:00 O2 Del Method 08/15/22 21:41 Data NPU 08/07/22 08:21 A&P Assessment and plan (1) Psychosis: (2) Methamphetamine use disorder, severe: (3) Altered mental status: Plan This is a 31-year-old white female who looks notably altered in mental status and a presentation consistent with methamphetamine use who presents with psychosis, confusion emotional dysregulation with significant hyperkinetic activity. 1. Continue abilify at 30mg in am. Continued Invega 12 mg daily. Continued Depak[address] 750 mg p.o. twice daily. 3. Encourage individual, group and milieu therapies. 4. Encourage sober living treatment after discharge at the highest level of care to which she is willing to commit. Patient in need of inpatient substance abuse treatment. 5. Signficant improvment noted-Will review KAN testing completed today. 6. 21-day hold granted. Awaiting guardianship hearing from [facility]. Involuntary Hold Information 96 Hour Hold: 96 Hour Involuntary Admission: No Attestations NPU Medical Necessity Statement*: Inpatient hospitalization is medically necessary and the clinically appropriate intervention at this time. We will monitor/initiate medications and make changes as indicated with likely length of stay 9-17 days. Will likely be dependent on guardianship and placement. Coding Level of Care Code Established Pt Acute Reproductive Endocrinologist for Briseida Hathaway Patient Type Established History Problem Focused Exam Problem Focused Medical Decision Making Straight Forward Diagnoses Psychosis F29 Methamphetamine use disorder, severe F15.20 Altered mental status R41.82
[2022-08-16] MEDS: OLANZapine 5 mg ODT PO (15:21)
[2022-08-16] MEDS: haloperidol 5 mg Tablet PO (17:26)
[2022-08-16] MEDS: diphenhydrAMINE 50 mg Capsule PO (17:26)
[2022-08-16 20:02] VITALS: RESP 16
[2022-08-17] MEDS: divalproex DR 250 mg Tablet 750 MG PO ×2 (08:20→19:50)
[2022-08-17] MEDS: ARIPiprazole 30 mg Tablet PO (08:21)
[2022-08-17] MEDS: docusate sodium 100 mg Capsule PO (08:21)
[2022-08-17] MEDS: paliperidone ER 6 mg Tablet 12 MG PO (08:21)
[2022-08-17] MEDS: hyDROXYzine 25 mg Capsule 50 MG PO (08:22)
[2022-08-17] MEDS: simethicone 80 mg Chew PO (08:38)
[2022-08-17 14:00] VITALS: BP 114/74; PULSE 114; RESP 18; TEMP 36.6; O2SAT 98
[2022-08-17] MEDS: diphenhydrAMINE 50 mg Capsule PO (14:07)
[2022-08-17] MEDS: LORazepam 2 mg Tablet PO (14:07)
[2022-08-17] MEDS: haloperidol 5 mg Tablet PO (14:07)
[2022-08-17] MEDS: OLANZapine 5 mg ODT PO (15:34)
[2022-08-17] MEDS: nicotine 2 mg Gum BUCCAL (15:57)
--- NOTE | 2022-08-17 16:50 | P.NPUPN_ITS ---
Subjective NPU Subjective: Patient is a 31-year-old white female with polysubstance abuse admitted with active psychosis. The patient had continued improvement on the milieu other than 1 episode today where she again became emotionally incontinent and began crying for approximately 15 minutes regarding her lack of being able to see her children. She appeared to recover without any additional medications. She had reported that she was trying to be good . She had reported motivation to go home. She reported no thoughts of hurting herself or others. She had reported normal sleep and appetite. Vitals/I&O/Wt Last Vital Signs Temp 98.2 F 08/16/22 14:00 Pulse 100 08/16/22 14:00 Resp 16 08/16/22 20:02 BP 110/78 08/16/22 14:00 Pulse Ox 97 08/16/22 14:00 O2 Del Method 08/15/22 21:41 Data NPU 08/07/22 08:21 A&P Assessment and plan (1) Psychosis: (2) Methamphetamine use disorder, severe: (3) Altered mental status: Plan This is a 31-year-old white female who looks notably altered in mental status and a presentation consistent with methamphetamine use who presents with psychosis, confusion emotional dysregulation with significant hyperkinetic acti vity. 1. Continue abilify at 30mg in am. Continued Invega 12 mg daily. Continued Depakote DR 750 mg p.o. twice daily. 3. Encourage individual, group and milieu therapies. 4. Encourage sober living treatment after discharge at the highest level of care to which she is willing to commit. Patient in need of inpatient substance abuse treatment. 5. KAN testing revealed only one area of concern out of 13, much improved, consider returnn home soon versus guardianship. Episodes of emotional incontinence may be better treated with Nuedexta if possible. 6. 21-day hold granted. Awaiting guardianship hearing from [facility]. Involuntary Hold Information 96 Hour Hold: 96 Hour Involuntary Admission: No Attestations NPU Medical Necessity Statement*: Inpatient hospitalization is medically necessary and the clinically appropriate intervention at this time. We will monitor/initiate medications and make changes as indicated with likely length of stay 9-17 days. Will likely be dependent on guardianship and placement. Coding Level of Care Code Established Pt Acute Manufacturing Applications Engineer for Briseida Hathaway Patient Type Established History Problem Focused Exam Problem Focused Medical Decision Making Straight Forward Diagnoses Psychosis F29 Methamphetamine use disorder, severe F15.20 Altered mental status R41.82
[2022-08-17] MEDS: benzocaine 20% 7 gm 1 APPLIC MUCOUS MEM (18:01)
[2022-08-17] MEDS: ibuprofen 600 mg Tablet PO (18:10)
[2022-08-17 20:40] VITALS: BP 106/61; PULSE 98; RESP 18; TEMP 36.7; O2SAT 99
[2022-08-18] MEDS: trazodone 50 mg Tablet PO ×2 (01:07→19:35)
[2022-08-18] MEDS: hyDROXYzine 25 mg Capsule 50 MG PO ×2 (05:10→11:29)
--- NOTE | 2022-08-18 05:22 | PC.NURSE ---
Pt woke up and came to the desk for a snack. Pt asked if she would be going home today. This nurse was unable to say if she was or not. Pt became tearful, Vistaril 50mg po given.
[2022-08-18] MEDS: paliperidone ER 6 mg Tablet 12 MG PO (08:29)
[2022-08-18] MEDS: divalproex DR 250 mg Tablet 750 MG PO ×2 (08:30→19:35)
[2022-08-18] MEDS: ARIPiprazole 30 mg Tablet PO (08:30)
[2022-08-18] MEDS: nicotine 2 mg Gum BUCCAL ×2 (10:44→16:09)
--- NOTE | 2022-08-18 11:29 | PC.NURSE ---
PRN Transformation Manager Patient becoming very emotionally labile, talking about her kids and crying. Attempted to verbally redirect and distract with activities, but patient continued to talk about her family and cry. Patient offered anxiety medication to which she agreed. Patient given hydroxyzine 50 mg PO.
--- NOTE | 2022-08-18 12:28 | P.NPUPN_ITS ---
Subjective NPU Subjective: Patient presented today with significant struggles with being emotionally labile. She was tearful and all over the place without clear antecedent event. She seemed paralyzed to make decisions including a as needed for her struggles. We discussed checking her Depakote level but she was not r eally cogent in the discussion. She continues to focus on wanting to go home. Mental Status Exam MSE Comments: This is a slender white female who appeared much older than her stated age in hospital scrubs with limited grooming but adequate eye contact. Poor dentition. There was no evidence of any abnormal involuntary motor movements appreciated. Cooperative with exam in moderate distress. Speech was increased rate and volume rate and volume. Mood described as upset. Her affect was congruent, labile with continued evidence of emotional incontinence. Thought process was more linear with no use of neologisms today. Thought content: Patient did not report suicidal or homicidal ideation. There was no clear evidence of delusional thinking but continued evidence of some overvalued ideas. She did not report auditory or visual hallucinations. Her attention and concentration appeared mostly intact and memory was more reliable but none were formally tested. She is alert and oriented x3. Insight, judgment and impulse control remained poor. Vitals/I&O/Wt Last Vital Signs Temp 98.1 F 08/17/22 20:40 Pulse 98 08/17/22 20:40 Resp 18 08/17/22 20:40 BP 106/61 08/17/22 20:40 Pulse Ox 99 08/17/22 20:40 O2 Del Method 08/15/22 21:41 Weight last 48 hrs Weight 78.562 kg Data NPU 08/07/22 08:21 A&P Assessment and plan (1) Psychosis: (2) Methamphetamine use disorder, severe: (3) Altered mental status: Plan This is a 31-year-old white female who looks notably altered in mental status and a presentation consistent with methamphetamine use who presents with psychosis, confusion emotional dysregulation with significant hyperkinetic activity. 1. Continue abilify at 30mg in am. Continued Invega 12 mg daily. Continued Depakote DR 750 mg p.o. twice daily. Check Depakote level in the morning. May explore discontinuation of Abilify. May consider Clozaril. 3. Encourage individual, group and milieu therapies. 4. Encourage sober living treatment after discharge at the highest level of care to which she is willing to commit. Patient in need of inpatient substance abuse treatment. 5. KAN testing revealed only one area of concern out of 13, much improved, but continued lability depending on the day continues to suggest guardianship necessary. Episodes of emotional incontinence may be better treated with Nuedexta if possible. 6. 21-day hold granted. Awaiting guardianship hearing from [facility]. Involuntary Hold Information 96 Hour Hold: 96 Hour Involuntary Admission: No Attestations NPU Medical Necessity Statement*: Inpatient hospitalization is medically necessary and the clinically appropriate intervention at this time. We will mon itor/initiate medications and make changes as indicated with likely length of stay 9-17 days. Will likely be dependent on guardianship and placement. Coding Level of Care Code Acute Esthetician Permanent Makeup Artist for Briseida Hathaway Diagnoses Psychosis F29 Methamphetamine use disorder, severe F15.20 Altered mental status R41.82
[2022-08-18 14:00] VITALS: BP 106/65; PULSE 108; RESP 18; TEMP 36.6; O2SAT 97
[2022-08-18] MEDS: OLANZapine 5 mg ODT PO (16:32)
--- NOTE | 2022-08-18 16:34 | PC.NURSE ---
PRN Comparison Shopper Patient emotionally labile. Patient approached nurses' station crying. This RN tried to redirect patient and attempted to understand what had prompted this outburst in the patient. However, she stated, I don't want to talk about it. Zyprexa 5 mg ODT administered.
[2022-08-18 19:36] VITALS: BP 122/76; PULSE 106; RESP 16; TEMP 36.9; O2SAT 98
[2022-08-19] MEDS: hyDROXYzine 25 mg Capsule 50 MG PO (02:50)
--- NOTE | 2022-08-19 02:55 | PC.NURSE ---
Pt came up to desk for a snack. during her second applesauce cup, pt became tearful, talking in rhymes about her people . this nurse gave pt vistaril 50mg po.
--- NOTE | 2022-08-19 04:16 | PC.NURSE ---
Pt in room resting quietly at this time with both eyes closed. No further tearful episodes as of this time.
[2022-08-19 06:00] VITALS: BP 122/89; PULSE 79; RESP 16; TEMP 36.8; O2SAT 95
[2022-08-19] MEDS: paliperidone ER 6 mg Tablet 12 MG PO (08:47)
[2022-08-19] MEDS: ARIPiprazole 30 mg Tablet PO (08:47)
[2022-08-19] MEDS: divalproex DR 250 mg Tablet 750 MG PO ×2 (08:47→19:20)
[2022-08-19] MEDS: nicotine 2 mg Gum BUCCAL ×3 (10:19→17:44)
[2022-08-19 14:00] VITALS: RESP 19
--- NOTE | 2022-08-19 16:31 | P.NPUPN_ITS ---
Subjective NPU Subjective: Patient is in today reporting that she is doing fine. However she started today with significant emotionality being tearful and fretting. We discussed restarting alternatives of decreasing her Abilify given that she has had no major impact on the maximum dose and she seemed to understand. We also discussed increasing her Depakote to 1000 mg p.o. twice daily after getting a Depakote level first in the morning. We continue to await her guardianship hearing. Mental Status Exam MSE Comments: This is a slender white female who appeared much older than her stated age in hospital scrubs with limited grooming but adequate eye contact. Poor dentition. There was no evidence of any abnormal involuntary motor movements appreciated. Cooperative with exam in moderate distress. Speech was increased rate and volume rate and volume. Mood described as okay. Her affect was congruent, less labile with continued evidence of emotional incontinence. Thought process was more linear with no use of neologisms today. Thought content: Patient did not report suicidal or homicidal ideation. There was no clear evidence of delusional thinking but continued evidence of some overvalued ideas. She did not report auditory or visual hallucinations. Her attention and concentration appeared mostly intact and memory was more reliable but none were formally tested. She is alert and oriented x3. Insight, judgment and impulse control remained poor. Vitals/I&O/Wt Last Vital Signs Temp 97.9 F 08/19/22 22:00 Pulse 101 H 08/19/22 22:00 Resp 20 H 08/19/22 22:00 BP 142/88 08/19/22 22:00 Pulse Ox 98 08/19/22 22:00 O2 Del Method 08/19/22 22:00 Data NPU 08/07/22 08:21 A&P Assessment and plan (1) Psychosis: (2) Methamphetamine use disorder, severe: (3) Altered mental status: Plan This is a 31-year-old white female who looks notably altered in mental status and a presentation consistent with methamphetamine use who presents with psychosis, confusion emotional dysregulation with significant hyperkinetic activity. 1. Decrease abilify at 15 mg in am. Continued Invega 12 mg daily. Continued Dep[address] 750 mg p.o. twice daily. Check Depakote level in the morning and increase to 1000 mg p.o. twice daily if level is sub t0 low therapeutic. May consider Clozaril. 3. Encourage individual, group and milieu therapies. 4. Encourage sober living treatment after discharge at the highest level of care to which she is willing to commit. Patient in need of inpatient substance abuse treatment. 5. KAN testing revealed only one area of concern out of 13, much improved, but continued lability depending on the day continues to suggest guardianship necessary. Episodes of emotional incontinence may be better treated with Nuedexta if possible. 6. 21-day hold granted. Awaiting guardianship hearing from [facility]. Involuntary Hold Information 96 Hour Hold: 96 Hour Involuntary Admission: No Attestations NPU Medical Necessity Statement*: Inpatient hospitalization is medically necessary and the clinically appropriate intervention at this time. We will monitor/initiate medications and make changes as indicated with likely length of stay 9-17 days. Will likely be dependent on guardianship and placement. Coding Level of Care Code Acute Stone Processing Machine Operator for Briseida Hathaway Diagnoses Psychosis F29 Methamphetamine use disorder, severe F15.20 Altered mental status R41.82
[2022-08-19] MEDS: trazodone 50 mg Tablet PO ×2 (19:20→21:27)
--- NOTE | 2022-08-19 21:28 | PC.NURSE ---
pt unable to sllep, requested 2nd trazodone. trazodone 50mg given po.
[2022-08-19 22:00] VITALS: BP 142/88; PULSE 101; RESP 20; TEMP 36.6; O2SAT 98
[2022-08-20] MEDS: ibuprofen 600 mg Tablet PO ×2 (03:07→07:00)
[2022-08-20] MEDS: hyDROXYzine 25 mg Capsule 50 MG PO (03:07)
--- NOTE | 2022-08-20 03:09 | PC.NURSE ---
pt up to desk, tearful. complaining of tooth pain and wanting to go home. vistaril 50mg po given for increased anxiety and motrin given for tooth pain.
[2022-08-20 06:00] VITALS: RESP 18
[2022-08-20] MEDS: paliperidone ER 6 mg Tablet 12 MG PO (08:04)
[2022-08-20] MEDS: ARIPiprazole 30 mg Tablet PO (08:04)
[2022-08-20 08:52] LABS: Valproic Acid Level 64.4 ug/mL (50-100)
[2022-08-20] MEDS: nicotine 2 mg Gum BUCCAL ×4 (09:15→17:32)
[2022-08-20] MEDS: divalproex DR 250 mg Tablet 750 MG PO (11:20)
[2022-08-20 14:00] VITALS: BP 137/85; PULSE 100; RESP 16; TEMP 36.9; O2SAT 97
[2022-08-20] MEDS: OLANZapine 5 mg ODT PO (15:53)
--- NOTE | 2022-08-20 15:53 | W.PM.NPUPNS ---
Subjective NPU Subjective: Patient is in today reporting that she is doing okay. We discussed that her Depakote level returned at 64.4 and so we are going to increase her medication as we discussed yesterday. We also discussed continuing to taper off of Abilify as well as initiating the Invega injection. She continues to be somewhat disorganized in her encounters but showing slow improvement. Still having fairly emotional ups and downs. We continue to await her guardianship hearing. Mental Status Exam MSE Comments: This is a slender white female who appeared much older than her stated age in hospital scrubs with limited grooming but adequate eye contact. Poor dentition. There was no evidence of any abnormal involuntary motor movements appreciated. Cooperative with exam in mild to moderate distress. Speech was increased rate and volume rate and volume. Mood described as okay. Her affect was congruent, less labile with continued evidence of emotional incontinence. Thought process was more linear with no use of neologisms today. Thought content: Patient did not report suicidal or homicidal ideation. There was no clear evidence of delusional thinking but continued evidence of some overvalued ideas. She did not report auditory or visual hallucinations. Her attention and concentration appeared mostly intact and memory was more reliable but none were formally tested. She is alert and oriented x3. Insight, judgment and impulse control remained poor. Vitals/I&O/Wt Last Vital Signs Temp 98.5 F 08/20/22 14:00 Pulse 100 08/20/22 14:00 Resp 16 08/20/22 14:00 BP 137/85 08/20/22 14:00 Pulse Ox 97 08/20/22 14:00 O2 Del Method 08/20/22 14:00 Data NPU 08/07/22 08:21 A&P Assessment and plan (1) Psychosis: (2) Methamphetamine use disorder, severe: (3) Altered mental status: Plan This is a 31-year-old white female who looks notably altered in mental status and a presentation consistent with methamphetamine use who presents with psychosis, confusion emotional dysregulation with significant hyperkinetic activity. 1. Decrease abilify at 15 mg in am. Continued Invega 12 mg daily. We will switch to Invega injection. Continued Depakote DR 750 mg p.o. twice daily. Increase Depakote to 1000 mg p.o. twice daily. May consider Clozaril. 3. Encourage individual, group and milieu therapies. 4. Encourage sober living treatment after discharge at the highest level of care to which she is willing to commit. Patient in need of inpatient substance abuse treatment. 5. KAN testing revealed only one area of concern out of 13, much improved, but continued lability depending on the day continues to suggest guardianship necessary. Episodes of emotional incontinence may be better treated with Nuedexta if possible. 6. 21-day hold granted. Awaiting guardianship hearing from [facility]. Involuntary Hold Information 96 Hour Hold: 96 Hour Involuntary Admission: No Attestations NPU Medical Necessity Statement*: Inpatient hospitalization is medically necessary and the clinically appropriate intervention at this time. We will monitor/initiate medications and make changes as indicated with likely length of stay 9-17 days. Will likely be dependent on guardianship and placement. Coding Level of Care Code Acute Mumps Developer for Briseida Hathaway Diagnoses Psychosis F29 Methamphetamine use disorder, severe F15.20 Altered mental status R41.82
--- NOTE | 2022-08-20 15:53 | PC.NURSE ---
PRN ZYPREXA ZYDIS 5 MG GIVEN PO PER PT C/O AGITATION, TEARFUL, REQUESTING SOMETHING FOR HELP LIKE NOW
[2022-08-20 19:53] VITALS: BP 111/79; PULSE 89; RESP 17; TEMP 36.8; O2SAT 97
[2022-08-20] MEDS: divalproex DR 500 mg Tablet 1000 MG PO (20:52)
[2022-08-20] MEDS: trazodone 50 mg Tablet PO (22:06)
[2022-08-21] MEDS: divalproex DR 500 mg Tablet 1000 MG PO ×2 (08:32→21:02)
[2022-08-21] MEDS: ARIPiprazole 30 mg Tablet 15 MG PO (08:32)
[2022-08-21] MEDS: paliperidone ER 6 mg Tablet 12 MG PO (08:32)
[2022-08-21] MEDS: nicotine 2 mg Gum BUCCAL ×3 (09:15→20:16)
[2022-08-21] MEDS: acetaminophen 325 mg Tablet 650 MG PO (13:57)
[2022-08-21 14:00] VITALS: BP 101/67; PULSE 86; RESP 18; TEMP 36.6; O2SAT 97
[2022-08-21] MEDS: paliperidone palmitate 234 mg Syringe IM (14:57)
[2022-08-21 17:55] LABS: Influenza A by IFA Negative (Negative); Influenza B by IFA Negative (Negative)
--- NOTE | 2022-08-21 19:38 | W.PM.NPUPNS ---
Subjective NPU Subjective: Patient presented today reporting no ill effects from the decrease in Abilify. We discussed a plan to discontinue the Abilify on Thursday. She received her first injection of the loading dose of Invega Sustenna 234 mg IM to the deltoid. She denied any issues with that. We continued to talk about guardianship and awaiting that process. Otherwise she denied any changes and had a fairly positive day without major emotional swings. Mental Status Exam MSE Comments: This is a slender white female who appeared much older than her stated age in hospital scrubs with improving grooming but adequate eye contact. Poor dentition. There was no evidence of any abnormal involuntary motor movements appreciated. Cooperative with exam in mild distress. Speech was increased rate and volume rate and volume. Mood described as okay. Her affect was congruent, less labile with less evidence of emotional incontinence. Thought process was more linear with occasional use of neologisms today. Thought content: Patient did not report suicidal or homicidal ideation. There was no clear evidence of delusional thinking but continued evidence of some overvalued ideas. She did not report auditory or visual hallucinations. Her attention and concentration appeared limited and memory was more reliable but none were formally tested. She is alert and oriented x3. Insight, judgment and impulse control remained poor. Vitals/I&O/Wt Last Vital Signs Temp 97.8 F 08/21/22 14:00 Pulse 86 08/21/22 14:00 Resp 18 08/21/22 14:00 BP 101/67 08/21/22 14:00 Pulse Ox 97 08/21/22 14:00 O2 Del Method 08/21/22 14:00 Data NPU 08/07/22 08:21 A&P Assessment and plan (1) Psychosis: (2) Methamphetamine use disorder, severe: (3) Altered mental status: Plan This is a 31-year-old white female who looks notably altered in mental status and a presentation consistent with methamphetamine use who presents with psychosis, confusion emotional dysregulation with significant hyperkinetic activity. 1. Decrease abilify at 15 mg in am. We will discontinue 08/23/2022. Decrease Invega to 6 mg daily. Received Invega Sustenna 234 mg IM to the deltoid as first loading dose. Continued Depakote DR 1000 mg p.o. twice daily. May consider Clozaril. 3. Encourage individual, group and milieu therapies. 4. Encourage sober living treatment after discharge at the highest level of care to which she is willing to commit. Patient in need of inpatient substance abuse treatment. 5. KAN testing revealed only one area of concern out of 13, much improved, but continued lability depending on the day continues to suggest guardianship necessary. Episodes of emotional incontinence may be better treated with Nuedexta if possible. 6. 21-day hold granted. Awaiting guardianship hearing from [facility]. Involuntary Hold Information 96 Hour Hold: 96 Hour Involuntary Admission: No Attestations NPU Medical Necessity Statement*: Inpatient hospitalization is medically necessary and the clinically appropriate intervention at this time. We will monitor/initiate medications and make changes as indicated with likely length of stay 9-17 days. Will likely be dependent on guardianship and placement. Coding Level of Care Code Acute Electronic Sensing Equipment Assembler for Briseida Hathaway Diagnoses Psychosis F29 Methamphetamine use disorder, severe F15.20 Altered mental status R41.82
[2022-08-21 20:13] VITALS: BP 112/79; PULSE 92; RESP 18; TEMP 36.4; O2SAT 98
[2022-08-21] MEDS: trazodone 50 mg Tablet PO (21:02)
--- NOTE | 2022-08-22 01:40 | PC.NURSE ---
pt up at nurses station stating her people are her people and she knows who they are. they are out free with the skittles. attempt to redirect pt unsuccessful pt turned around and left nurses station an went to her r0oom.
[2022-08-22 06:00] VITALS: RESP 18
[2022-08-22] MEDS: nicotine 2 mg Gum BUCCAL ×4 (08:25→19:06)
[2022-08-22] MEDS: ARIPiprazole 30 mg Tablet 15 MG PO (08:25)
[2022-08-22] MEDS: divalproex DR 500 mg Tablet 1000 MG PO ×2 (08:26→21:01)
[2022-08-22] MEDS: paliperidone ER 6 mg Tablet PO (08:27)
--- NOTE | 2022-08-22 13:59 | W.PM.NPUPNS ---
Subjective NPU Subjective: Presented today reporting that she is feeling better. She had some periods of increased neologisms and clang associations but also had some really good periods as well. We discussed continuing to decrease/discontinue her Abilify so that we can identify whether it is actually contributing to her situation which she was okay with that. Otherwise she denied any problems with the medication and there is some indication that she might have a hearing date for her guardianship. Mental Status Exam MSE Comments: This is a slender white female who appeared much older than her stated age in hospital scrubs with improving grooming but adequate eye contact. Poor dentition. There was no evidence of any abnormal involuntary motor movements appreciated. Cooperative with exam in mild distress. Speech was increased rate and volume rate and volume. Mood described as pretty good. Her affect was congruent, less labile with less evidence of emotional incontinence. Thought process was more linear with occasional use of neologisms today. Thought content: Patient did not report suicidal or homicidal ideation. There was no clear evidence of delusional thinking but continued evidence of some overvalued ideas. She did not report auditory or visual hallucinations. Her attention and concentration appeared limited and memory was more reliable but none were formally tested. She is alert and oriented x3. Insight, judgment and impulse control remained poor. Vitals/I&O/Wt Last Vital Signs Temp 97.5 F L 08/21/22 20:13 Pulse 92 08/21/22 20:13 Resp 18 08/22/22 06:00 BP 112/79 08/21/22 20:13 Pulse Ox 98 08/21/22 20:13 O2 Del Method 08/21/22 14:00 Data NPU 08/07/22 08:21 A&P Assessment and plan (1) Psychosis: (2) Methamphetamine use disorder, severe: (3) Altered mental status: Plan This is a 31-year-old white female who looks notably altered in mental status and a presentation consistent with methamphetamine use who presents with psychosis, confusion emotional dysregulation with significant hyperkinetic activity. 1. Decrease abilify at 15 mg in am. We will discontinue tomorrow. Decrease Invega to 6 mg daily. Received Invega Sustenna 234 mg IM to the deltoid as first loading dose. Continued Depakote DR 1000 mg p.o. twice daily. May consider Clozaril. 3. Encourage individual, group and milieu therapies. 4. Encourage sober living treatment after discharge at the highest level of care to which she is willing to commit. Patient in need of inpatient substance abuse treatment. 5. KAN testing revealed only one area of concern out of 13, much improved, but continued lability depending on the day continues to suggest guardianship necessary. Episodes of emotional incontinence may be better treated with Nuedexta if possible. 6. 21-day hold granted. Awaiting guardianship hearing. Involuntary Hold Information 96 Hour Hold: 96 Hour Involuntary Admission: No Attestations NPU Medical Necessity Statement*: Inpatient hospitalization is medically necessary and the clinically appropriate intervention at this time. We will monitor/initiate medications and make changes as indicated with likely length of stay 9-17 days. Will likely be dependent on guardianship and placement. Coding Level of Care Code Acute Cloth Doubling Machine Operator for Briseida Hathaway Diagnoses Psychosis F29 Methamphetamine use disorder, severe F15.20 Altered mental status R41.82
[2022-08-22 14:00] VITALS: BP 122/83; PULSE 89; RESP 16; TEMP 36.6; O2SAT 99
[2022-08-22] MEDS: ziprasidone hcl 20 mg Capsule PO (18:55)
--- NOTE | 2022-08-22 18:57 | PC.NURSE ---
PT CRYING, ANXIOUS, PACING IN HALLWAY, RAISING HER ARMS UP AND DOWN.TALKING ABOUT HER PEOPLE THAT MARY IS HER PEOPLE WHO ARE HER CHILDREN AND VILMA IS HER PEOPLE AN WILL TAKE CARE OF HER. ADMINISTERED JOSE COKER
[2022-08-22 20:02] VITALS: BP 116/72; PULSE 108; RESP 18; TEMP 523.8; TEMP 975; O2SAT 97
[2022-08-22] MEDS: trazodone 50 mg Tablet PO (21:01)
[2022-08-22] MEDS: ibuprofen 600 mg Tablet PO (21:07)
[2022-08-23 06:00] VITALS: RESP 18
[2022-08-23] MEDS: divalproex DR 500 mg Tablet 1000 MG PO ×2 (08:16→20:13)
[2022-08-23] MEDS: paliperidone ER 6 mg Tablet PO (08:16)
[2022-08-23] MEDS: nicotine 2 mg Gum BUCCAL ×5 (09:15→18:02)
[2022-08-23 14:00] VITALS: BP 138/91; PULSE 78; RESP 16; TEMP 36.6; O2SAT 98
--- NOTE | 2022-08-23 14:09 | W.PM.NPUPNS ---
Subjective NPU Subjective: Patient presented today reporting that she is doing okay. She had visitors that made her really happy. She brought up the discontinuation of the Abilify. We agreed that we wanted to see if she needed both medications that plus the Invega or if she would be fine or of limited benefit to be taking 2. We discussed the Invega injection and when she would receive the second injection and explained that she would not take Invega pills any longer at that point. She denied any new problems or concerns and continued to have less moments of aimlessness throughout the day. We discussed the possibility of a hearing for guardianship on but that that could be an error. Mental Status Exam MSE Comments: This is a slender white female who appeared much older than her stated age in hospital scrubs with improving grooming but adequate eye contact. Poor dentition. There was no evidence of any abnormal involuntary motor movements appreciated. Cooperative with exam in mild distress. Speech was increased rate and more normal volume. Mood described as pretty good. Her affect was congruent, less labile with less evidence of emotional incontinence. Thought process was more linear with occasional use of neologisms today. Thought content: Patient did not report suicidal or homicidal ideation. There was no clear evidence of delusional thinking but continued evidence of some overvalued ideas. She did not report auditory or visual hallucinations. Her attention and concentration appeared limited and memory was more reliable but none were formally tested. She is alert and oriented x3. Insight, judgment and impulse control improving, but limited. Vitals/I&O/Wt Last Vital Signs Temp 975 F H 08/22/22 20:02 Pulse 108 H 08/22/22 20:02 Resp 18 08/23/22 06:00 BP 116/72 08/22/22 20:02 Pulse Ox 97 08/22/22 20:02 O2 Del Method 08/22/22 14:00 Data NPU 08/07/22 08:21 A&P Assessment and plan (1) Psychosis: (2) Methamphetamine use disorder, severe: (3) Altered mental status: Plan This is a 31-year-old white female who looks notably altered in mental status and a presentation consistent with methamphetamine use who presents with psychosis, confusion emotional dysregulation with significant hyperkinetic activity. 1. Continue current medication except discontinue Abilify. Continue Invega to 6 mg daily. Received Invega Sustenna 234 mg IM to the deltoid as first loading dose. Continued Depakote DR 1000 mg p.o. twice daily. May consider Clozaril. 3. Encourage individual, group and milieu therapies. 4. Encourage sober living treatment after discharge at the highest level of care to which she is willing to commit. Patient in need of inpatient substance abuse treatment. 5. KAN testing revealed only one area of concern out of 13, much improved, but continued lability depending on the day continues to suggest guardianship necessary. Episodes of emotional incontinence may be better treated with Nuedexta if possible. 6. 21-day hold granted. Awaiting guardianship hearing. Involuntary Hold Information 96 Hour Hold: 96 Hour Involuntary Admission: No Attestations NPU Medical Necessity Statement*: Inpatient hospitalization is medically necessary and the clinically appropriate intervention at this time. We will monitor/initiate medications and make changes as indicated with likely length of stay 7-14 days. Will likely be dependent on guardianship and placement. Coding Level of Care Code Acute Hot Wire Glass Tube Cutter for Briseida Hathaway Diagnoses Psychosis F29 Methamphetamine use disorder, severe F15.20 Altered mental status R41.82
[2022-08-23 20:37] VITALS: BP 111/73; PULSE 116; RESP 18; TEMP 36.2; O2SAT 97
[2022-08-23] MEDS: trazodone 50 mg Tablet PO (21:10)
[2022-08-24] MEDS: nicotine 2 mg Gum BUCCAL ×3 (07:51→16:08)
[2022-08-24] MEDS: paliperidone ER 6 mg Tablet PO (07:51)
[2022-08-24] MEDS: divalproex DR 500 mg Tablet 1000 MG PO ×2 (07:51→19:17)
--- NOTE | 2022-08-24 09:56 | W.PM.NPUPNS ---
Subjective NPU Subjective: Patient presented today reporting that she is feeling more positive by and large. We continued to discuss needing to verify what was going on from a standpoint of the hearing scheduled in [facility] for her guardianship. But additionally she was able to be clearer with less derailment in conversation in general. Occasional neologisms and clang association but clearly diminishing. Mental Status Exam MSE Comments: This is a slender white female who appeared much older than her stated age in hospital scrubs with improving grooming but adequate eye contact. Poor dentition. There was no evidence of any abnormal involuntary motor movements appreciated. Cooperative with exam in but no acute distress. Speech was increased rate and more normal volume. Mood described as pretty good. Her affect was congruent, less labile with less episodes of emotional incontinence. Thought process was more linear with occasional use of neologisms today. Thought content: Patient did not report suicidal or homicidal ideation. There was no clear evidence of delusional thinking but continued evidence of some overvalued ideas. She did not report auditory or visual hallucinations. Her attention and concentration appeared limited and memory was more reliable but none were formally tested. She is alert and oriented x3. Insight, judgment and impulse control improving, but limited. Vitals/I&O/Wt Last Vital Signs Temp 97.2 F L 08/23/22 20:37 Pulse 116 H 08/23/22 20:37 Resp 18 08/23/22 20:37 BP 111/73 08/23/22 20:37 Pulse Ox 97 08/23/22 20:37 O2 Del Method 08/23/22 14:00 Weight last 48 hrs Weight 76.476 kg Data NPU 08/07/22 08:21 A&P Assessment and plan (1) Psychosis: (2) Methamphetamine use disorder, severe: (3) Altered mental status: Plan This is a 31-year-old white female who looks notably altered in mental status and a presentation consistent with methamphetamine use who presents with psychosis, confusion emotional dysregulation with significant hyperkinetic activity. 1. Continue current medication except discontinued Abilify. Continue Invega to 6 mg daily. Received Invega Sustenna 234 mg IM to the deltoid as first loading dose. Continued Depakote DR 1000 mg p.o. twice daily. May consider Clozaril. 3. Encourage individual, group and milieu therapies. 4. Encourage sober living treatment after discharge at the highest level of care to which she is willing to commit. Patient in need of inpatient substance abuse treatment. 5. KAN testing revealed only one area of concern out of 13, much improved, but continued lability depending on the day continues to suggest guardianship necessary. Episodes of emotional incontinence may be better treated with Nuedexta if possible. 6. 21-day hold granted. Awaiting guardianship hearing. Involuntary Hold Information 96 Hour Hold: 96 Hour Involuntary Admission: No Attestations NPU Medical Necessity Statement*: Inpatient hospitalization is medically necessary and the clinically appropriate intervention at this time. We will monitor/initiate medications and make changes as indicated with likely length of stay 7-14 days. Will likely be dependent on guardianship and placement. Coding Level of Care Code Acute Bobbin Stripper for Briseida Hathaway Diagnoses Psychosis F29 Methamphetamine use disorder, severe F15.20 Altered mental status R41.82
[2022-08-24 14:00] VITALS: BP 92/60; PULSE 97; RESP 18; TEMP 36.4; O2SAT 95
[2022-08-24] MEDS: trazodone 50 mg Tablet PO (19:17)
[2022-08-24 19:30] VITALS: BP 96/64; PULSE 89; RESP 14; TEMP 36.4; O2SAT 98
[2022-08-25 06:00] VITALS: BP 104/71; PULSE 94; RESP 16; TEMP 36.4; O2SAT 96
[2022-08-25] MEDS: paliperidone ER 6 mg Tablet PO (08:13)
[2022-08-25] MEDS: divalproex DR 500 mg Tablet 1000 MG PO ×2 (08:13→19:30)
[2022-08-25] MEDS: nicotine 2 mg Gum BUCCAL ×5 (09:23→19:31)
[2022-08-25 14:00] VITALS: BP 103/57; PULSE 98; RESP 18; TEMP 36.8; O2SAT 97
--- NOTE | 2022-08-25 18:00 | W.PM.NPUPNS ---
Subjective NPU Subjective: Patient presented today continuing to show slow but noteworthy improvements in her overall organization throughout the day. She does still have periods where she will seem to work out somewhat purposeless energy but in general she remains under control and not needing as needed medications that she had in the past. We are working on the logistics of her guardianship hearing as she was scheduled in [facility] but is unclear whether she is able to do that. Mental Status Exam MSE Comments: This is a slender white female who appeared much older than her stated age in hospital scrubs with improving grooming but adequate eye contact. Poor dentition. There was no evidence of any abnormal involuntary motor movements appreciated. Cooperative with exam in but no acute distress. Speech was increased rate and more normal volume. Mood described pretty good. Her affect was congruent, less labile with less episodes of emotional incontinence. Thought process was more linear with occasional use of neologisms today. Thought content: Patient did not report suicidal or homicidal ideation. There was no clear evidence of delusional thinking but continued evidence of some overvalued ideas. She did not report auditory or visual hallucinations. Her attention and concentration appeared limited and memory was more reliable but none were formally tested. She is alert and oriented x3. Insight, judgment and impulse control improving, but limited. Vitals/I&O/Wt Last Vital Signs Temp 98.2 F 08/25/22 22:00 Pulse 97 08/25/22 22:00 Resp 18 08/25/22 22:00 BP 109/75 08/25/22 22:00 Pulse Ox 97 08/25/22 22:00 O2 Del Method 08/23/22 14:00 Data NPU 08/07/22 08:21 A&P Assessment and plan (1) Psychosis: (2) Methamphetamine use disorder, severe: (3) Altered mental status: Plan This is a 31-year-old white female who looks notably altered in mental status and a presentation consistent with methamphetamine use who presents with psychosis, confusion emotional dysregulation with significant hyperkinetic activity. 1. Continue current medication except discontinued Abilify. Continue Invega to 6 mg daily and we will discontinue as second loading dose due 08/28/2022. Received Invega Sustenna 234 mg IM to the deltoid as first loading dose. Continued Depakote DR 1000 mg p.o. twice daily. May consider Clozaril. 3. Encourage individual, group and milieu therapies. 4. Encourage sober living treatment after discharge at the highest level of care to which she is willing to commit. Patient in need of inpatient substance abuse treatment. 5. KAN testing revealed only one area of concern out of 13, much improved, but continued lability depending on the day continues to suggest guardianship necessary. Episodes of emotional incontinence may be better treated with Nuedexta if possible. 6. 21-day hold granted. Awaiting guardianship hearing. Involuntary Hold Information 96 Hour Hold: 96 Hour Involuntary Admission: No Attestations NPU Medical Necessity Statement*: Inpatient hospitalization is medically necessary and the clinically appropriate intervention at this time. We will monitor/initiate medications and make changes as indicated with likely length of stay 7-14 days. Will likely be dependent on guardianship and placement. Coding Level of Care Code Acute Printed Circuit Board Preassembler for Briseida Hathaway Diagnoses Psychosis F29 Methamphetamine use disorder, severe F15.20 Altered mental status R41.82
[2022-08-25] MEDS: trazodone 50 mg Tablet PO ×2 (19:30→20:57)
[2022-08-25 22:00] VITALS: BP 109/75; PULSE 97; RESP 18; TEMP 36.8; O2SAT 97
[2022-08-26 05:59] VITALS: RESP 14
[2022-08-26] MEDS: nicotine 2 mg Gum BUCCAL ×6 (06:50→18:27)
[2022-08-26] MEDS: paliperidone ER 6 mg Tablet PO (08:42)
[2022-08-26] MEDS: divalproex DR 500 mg Tablet 1000 MG PO ×2 (08:42→20:40)
[2022-08-26] MEDS: ibuprofen 600 mg Tablet PO ×2 (08:44→16:14)
[2022-08-26 14:00] VITALS: BP 107/73; PULSE 92; RESP 16; TEMP 36.8; O2SAT 98
--- NOTE | 2022-08-26 14:57 | P.NPUPN_ITS ---
Subjective NPU Subjective: Presented today reporting that she is feeling better but wondering about the process. We discussed the fact that her guardianship must go through [facility] and so she does not have a hearing on . We discussed the fact that unfortunately our interactions with other [facility] tends to take much longer to get a hearing date. We did however discuss that there is a relative that has stepped forward that is suggesting she could come stay there possibly. We agreed that with some logistical determinations this could be feasible. We agreed to work with the treatment team to connect with this at and get a sense of what kind of support would be available and see if we can get so me better sense from [facility] of how soon we might have a court date. Mental Status Exam MSE Comments: This is a slender white female who appeared much older than her stated age in hospital scrubs with improving grooming but adequate eye contact. Poor dentition. There was no evidence of any abnormal involuntary motor movements appreciated. Cooperative with exam in but no acute distress. Speech was increased rate and more normal volume. Mood described pretty good. Her affect was congruent, less labile with less episodes of emotional incontinence. Thought process was more linear/organized with limited use of neologisms today. Thought content: Patient did not report suicidal or homicidal ideation. There was no clear evidence of delusional thinking but continued evidence of some o vervalued ideas. She did not report auditory or visual hallucinations. Her attention and concentration appeared limited and memory was more reliable but none were formally tested. She is alert and oriented x3. Insight, judgment and impulse control improving, but limited. Vitals/I&O/Wt Last Vital Signs Temp 98.3 F 08/26/22 14:00 Pulse 92 08/26/22 14:00 Resp 16 08/26/22 14:00 BP 107/73 08/26/22 14:00 Pulse Ox 98 08/26/22 14:00 O2 Del Method 08/26/22 14:00 Data NPU 08/07/22 08:21 A&P Assessment and plan (1) Psychosis: (2) Methamphetamine use disorder, severe: (3) Altered mental status: Plan This is a 31-year-old white female who looks notably altered in mental status and a presentation consistent with methamphetamine use who presents with psychosis, confusion emotional dysregulation with significant hyperkinetic activity. 1. Continue current medication except discontinued Abilify. Discontinue Invega as second loading dose due 08/28/2022. Received Invega Sustenna 234 mg IM to the deltoid as first loading dose. Continued Depakote DR 1000 mg p.o. twice daily. May consider Clozaril. Recheck Depakote level 3. Encourage individual, group and milieu therapies. 4. Encourage sober living treatment after discharge at the highest level of care to which she is willing to commit. Patient in need of inpatient substance abuse treatment. 5. KAN testing revealed only one area of concern out of 13, much improved, but continued lability depending on the day continues to suggest guardianship necessary. Episodes of emotional incontinence may be better treated with Nuedexta if possible. 6. 21-day hold granted. Guardianship hearing . Exploring placement possibly with family. Involuntary Hold Information 96 Hour Hold: 96 Hour Involuntary Admission: No Attestations NPU Medical Necessity Statement*: Inpatient hospitalization is medically necessary and the clinically appropriate intervention at this time. We will mo nitor/initiate medications and make changes as indicated with likely length of stay 2-10 days. Will likely be dependent on guardianship and placement. Coding Level of Care Code Acute Fitness/Wellness Director for Briseida Fwd Diagnoses Psychosis F29 Methamphetamine use disorder, severe F15.20 Altered mental status R41.82
[2022-08-26 20:24] VITALS: BP 118/82; PULSE 96; RESP 18; TEMP 36.6; O2SAT 96
[2022-08-26] MEDS: trazodone 50 mg Tablet PO ×2 (20:40→21:48)
[2022-08-27 06:00] VITALS: RESP 18
[2022-08-27 09:13] LABS: Valproic Acid Level 101.6 ug/mL (50-100)
[2022-08-27] MEDS: nicotine 2 mg Gum BUCCAL ×5 (09:31→18:27)
[2022-08-27] MEDS: ibuprofen 600 mg Tablet PO (09:31)
[2022-08-27] MEDS: simethicone 80 mg Chew PO (09:32)
[2022-08-27] MEDS: divalproex DR 500 mg Tablet 1000 MG PO ×2 (09:37→19:40)
[2022-08-27 14:00] VITALS: BP 111/78; PULSE 81; RESP 16; TEMP 36.8; O2SAT 97
--- NOTE | 2022-08-27 17:31 | W.PM.NPUPNS ---
Subjective NPU Subjective: Patient presented today reporting that she is sad that she has had to stay here this long and is really worried about having to stay much longer. We discussed the fact that we still did not have a court date for [facility], but that we were talking to some of her inner chilkat to see if someone might be willing to support her as she improves and is awaiting that date. She gave some names of people that might be helpful in that regard but was rather emotional today. Mental Status Exam MSE Comments: This is a slender white female who appeared much older than her stated age in hospital scrubs with improving grooming but adequate eye contact. Poor dentition. There was no evidence of any abnormal involuntary motor movements appreciated. Cooperative with exam in but no acute distress. Speech was increased rate and more normal volume. Mood described pretty sad about being here as other people leave. Her affect was congruent, and emotionally labile with significant tearfulness. Thought process was more linear/organized with limited use of neologisms today. Thought content: Patient did not report suicidal or homicidal ideation. There was no clear evidence of delusional thinking but continued evidence of some overvalued ideas. She did not report auditory or visual hallucinations. Her attention and concentration appeared limited and memory was more reliable but none were formally tested. She is alert and oriented x3. Insight, judgment and impulse control improving, but limited. Vitals/I&O/Wt Last Vital Signs Temp 98.3 F 08/27/22 14:00 Pulse 81 08/27/22 14:00 Resp 16 08/27/22 14:00 BP 111/78 08/27/22 14:00 Pulse Ox 97 08/27/22 14:00 O2 Del Method 08/27/22 14:00 Data NPU 08/07/22 08:21 A&P Assessment and plan (1) Psychosis: (2) Methamphetamine use disorder, severe: (3) Altered mental status: Plan This is a 31-year-old white female who looks notably altered in mental status and a presentation consistent with methamphetamine use who presents with psychosis, confusion emotional dysregulation with significant hyperkinetic activity. 1. Continue current medication except discontinued Abilify. Discontinue Invega as second loading dose due 08/28/2022. Received Invega Sustenna 234 mg IM to the deltoid as first loading dose. Continued Depakote DR 1000 mg p.o. twice daily. May consider Clozaril. Depakote level 101.6 H we will consider possibly switching over to Depakote ER and whether to decrease the dose slightly of the DR. 3. Encourage individual, group and milieu therapies. 4. Encourage sober living treatment after discharge at the highest level of care to which she is willing to commit. Patient in need of inpatient substance abuse treatment. 5. KAN testing revealed only one area of concern out of 13, much improved, but continued lability depending on the day continues to suggest guardianship necessary. Episodes of emotional incontinence may be better treated with Nuedexta if possible. 6. 21-day hold granted. Guardianship hearing . Exploring placement possibly with family. Involuntary Hold Information 96 Hour Hold: 96 Hour Involuntary Admission: No Attestations NPU Medical Necessity Statement*: Inpatient hospitalization is medically necessary and the clinically appropriate intervention at this time. We will monitor/initiate medications and make changes as indicated with likely length of stay 2-8 days. Will likely be dependent on guardianship and placement. Coding Level of Care Code Acute Bellman Driver for Briseida Hathaway Diagnoses Psychosis F29 Methamphetamine use disorder, severe F15.20 Altered mental status R41.82
[2022-08-27] MEDS: trazodone 50 mg Tablet PO (19:40)
[2022-08-27] MEDS: OLANZapine 5 mg ODT PO (19:40)
--- NOTE | 2022-08-27 21:40 | PC.NURSE ---
pt became tearful, yelling, while on the phone. pt went down hallway crying and yelling stating she is not with her people and she needs to be with her people. pt walking benítez calming herself down. pt stated she is ok now and she does not need any medication at this time.
[2022-08-27 22:00] VITALS: BP 121/85; PULSE 86; RESP 18; TEMP 36.4; O2SAT 97
[2022-08-28 06:00] VITALS: BP 95/69; PULSE 80; RESP 16; TEMP 36.6; O2SAT 97
[2022-08-28] MEDS: divalproex DR 500 mg Tablet 1000 MG PO ×2 (07:58→22:07)
[2022-08-28] MEDS: nicotine 2 mg Gum BUCCAL ×3 (07:58→15:14)
[2022-08-28] MEDS: docusate sodium 100 mg Capsule PO (07:58)
[2022-08-28] MEDS: ibuprofen 600 mg Tablet PO (08:04)
[2022-08-28] MEDS: simethicone 80 mg Chew PO (08:05)
--- NOTE | 2022-08-28 09:01 | P.NPUPN_ITS ---
Subjective NPU Subjective: Patient presented today really struggling with the idea of being stuck here while everybody else is leaving. She reports that she feels that there are multiple people that would allow her to stay including someone who was her guardian previously. We discussed continuing to feel the guardianship was appropriate. We also discussed the fact that we were also evaluating long-term rehabs as a possibility. She reports that she would obviously prefer to discharge versus going to an extended rehab. Mental Status Exam MSE Comments: This is a slender white female who appeared much older than her stated age in hospital scrubs with improving grooming but adequate eye contact. Poor dentition. There was no evidence of any abnormal involuntary motor movements appreciated. Cooperative with exam in but no acute distress. Speech was rate and volume. Mood described down. Her affect was congruent. Thought process was more linear/organized with limited use of neologisms today. Thought content: Patient did not report suicidal or homicidal ideation. There was no clear evidence of delusional thinking but continued evidence of some overvalued ideas. She did not report auditory or visual hallucinations. Her attention and concentration appeared limited and memory was more reliable but n one were formally tested. She is alert and oriented x3. Insight, judgment and impulse control improving, but limited. Vitals/I&O/Wt Last Vital Signs Temp 97.9 F 08/28/22 06:00 Pulse 80 08/28/22 06:00 Resp 16 08/28/22 06:00 BP 95/69 08/28/22 06:00 Pulse Ox 97 08/28/22 06:00 O2 Del Method 08/28/22 06:00 Data NPU 08/07/22 08:21 A&P Assessment and plan (1) Psychosis: (2) Methamphetamine use disorder, severe: (3) Altered mental status: Plan This is a 31-year-old white female who looks notably altered in mental status and a presentation consistent with methamphetamine use who presents with psychosis, confusion emotional dysregulation with significant hyperkinetic activity. 1. Continue current medication except discontinued Abilify. Give second loading dose Invega Sustenna 156 mg IM to the deltoid. Received Invega Sustenna 234 mg IM to the deltoid as first loading dose. Continued Depakote DR 1000 mg p.o. twice daily. May consider Clozaril. Depakote level 101.6 H we will consider possibly switching over to Depakote ER and whether to decrease the dose slightly of the DR. 3. Encourage individual, group and milieu therapies. 4. Encourage sober living treatment after discharge at the highest level of care to which she is willing to commit. Patient in need of inpatient substance abuse treatment. 5. KAN testing revealed only one area of concern out of 13, much improved, but continued lability depending on the day continues to suggest guardianship necessary. Episodes of emotional incontinence may be better treated with Nuedexta if possible. 6. 21-day hold granted. Guardianship hearing . Exploring placement possibly with family. Involuntary Hold Information 96 Hour Hold: 96 Hour Involuntary Admission: No Attestations NPU Medical Necessity Statement*: Inpatient hospitalization is medically necessary and the clinically appropriate intervention at this time. We will monitor/initiate medications and make changes as indicated with likely length of stay 2-7 days. Will likely be dependent on guardianship and placement. Coding Level of Care Code Acute Code for [facility] Diagnoses Psychosis F29 Methamphetamine use disorder, severe F15.20 Altered mental status R41.82
[2022-08-28] MEDS: OLANZapine 5 mg ODT PO (10:05)
[2022-08-28] MEDS: diphenhydrAMINE 50 mg Capsule PO (10:33)
[2022-08-28] MEDS: haloperidol 5 mg Tablet PO (10:33)
[2022-08-28] MEDS: LORazepam 2 mg Tablet PO (10:33)
[2022-08-28 14:00] VITALS: BP 109/74; PULSE 86; RESP 16; TEMP 36.7; O2SAT 97
[2022-08-28 22:00] VITALS: RESP 18
[2022-08-28] MEDS: trazodone 50 mg Tablet PO (22:08)
[2022-08-29 06:00] VITALS: BP 103/61; PULSE 88; RESP 16; TEMP 36.6; O2SAT 96
--- NOTE | 2022-08-29 07:32 | W.PM.NPUPNS ---
Subjective NPU Subjective: Patient presented today clearly appearing to be worse than she had been when we started the journey of decreasing her Abilify. We discussed restarting the Abilify including the risks, benefits and alternatives and she understood and agreed to proceed as is documented in this note. We discussed the fact that since we removed the Abilify that she has had increased use of as needed medications etc. Mental Status Exam MSE Comments: This is a slender white female who appeared much older than her stated age in hospital scrubs with improving grooming but adequate eye contact. Poor dentition. There was no evidence of any abnormal involuntary motor movements appreciated. Cooperative with exam in increased distress. Speech was increased rate and volume. Mood described as upset . Her affect was congruent. Thought process was more disorganized with increased use of neologisms and clang associations today. Thought content: Patient did not report suicidal or homicidal ideation. There was no clear evidence of delusional thinking but continued evidence of some overvalued ideas. She did not report auditory or visual hallucinations. Her attention and concentration appeared limited and memory was more reliable but none were formally tested. She is alert and oriented x3. Insight, judgment and impulse control improving, but limited. Vitals/I&O/Wt Last Vital Signs Temp 97.9 F 08/29/22 06:00 Pulse 88 08/29/22 06:00 Resp 16 08/29/22 06:00 BP 103/61 08/29/22 06:00 Pulse Ox 96 08/29/22 06:00 O2 Del Method 08/29/22 06:00 Data NPU 08/07/22 08:21 A&P Assessment and plan (1) Psychosis: (2) Methamphetamine use disorder, severe: (3) Altered mental status: Plan This is a 31-year-old white female who looks notably altered in mental status and a presentation consistent with methamphetamine use who presents with psychosis, confusion emotional dysregulation with significant hyperkinetic activity. 1. Continue current medication except discontinued Abilify. Gave second loading dose Invega Sustenna 156 mg IM to the deltoid today. Continued Depakote DR 1000 mg p.o. twice daily. May consider Clozaril. Depakote level 101.6 H we will consider possibly switching over to Depakote ER and whether to decrease the dose slightly of the DR. 3. Encourage individual, group and milieu therapies. 4. Encourage sober living treatment after discharge at the highest level of care to which she is willing to commit. Patient in need of inpatient substance abuse treatment. 5. KAN testing revealed only one area of concern out of 13, much improved, but continued lability depending on the day continues to suggest guardianship necessary. Episodes of emotional incontinence may be better treated with Nuedexta if possible. 6. 21-day hold granted. Guardianship hearing still not scheduled in [facility]. Exploring placement possibly with family. Involuntary Hold Information 96 Hour Hold: 96 Hour Involuntary Admission: No Attestations NPU Medical Necessity Statement*: Inpatient hospitalization is medically necessary and the clinically appropriate intervention at this time. We will monitor/initiate medications and make changes as indicated with likely length of stay 2-7 days. Will likely be dependent on guardianship and placement. Coding Level of Care Code Acute Code for [facility] Diagnoses Psychosis F29 Methamphetamine use disorder, severe F15.20 Altered mental status R41.82
[2022-08-29] MEDS: divalproex DR 500 mg Tablet 1000 MG PO ×2 (08:35→20:00)
[2022-08-29] MEDS: nicotine 2 mg Gum BUCCAL ×3 (08:38→16:54)
[2022-08-29] MEDS: OLANZapine 5 mg ODT PO (09:20)
[2022-08-29] MEDS: paliperidone palmitate 156 mg Syringe IM (09:41)
[2022-08-29] MEDS: ARIPiprazole 30 mg Tablet 15 MG PO (13:55)
[2022-08-29] MEDS: diphenhydrAMINE 50 mg Capsule PO (13:56)
[2022-08-29] MEDS: LORazepam 2 mg Tablet PO (13:56)
[2022-08-29] MEDS: haloperidol 5 mg Tablet PO (13:56)
[2022-08-29 14:00] VITALS: BP 102/72; PULSE 80; RESP 20; TEMP 36.7; O2SAT 96
[2022-08-29 19:22] VITALS: RESP 18
[2022-08-29] MEDS: trazodone 50 mg Tablet PO (20:00)
[2022-08-30] MEDS: ibuprofen 600 mg Tablet PO ×3 (07:57→21:59)
[2022-08-30] MEDS: ARIPiprazole 30 mg Tablet 15 MG PO (09:22)
[2022-08-30] MEDS: divalproex DR 500 mg Tablet 1000 MG PO ×2 (09:22→20:30)
[2022-08-30] MEDS: nicotine 2 mg Gum BUCCAL ×3 (09:31→14:24)
[2022-08-30] MEDS: ziprasidone hcl 20 mg Capsule PO (10:13)
--- NOTE | 2022-08-30 10:15 | PC.NURSE ---
Pt came to nurses station asking to speak with someone. Pt crying, saying she wanted to go home. All I want to be is a mommy and I can't while I'm in here. Pt spoke about her family, her life, and her children. Pt allowed to vent and express herself. She remained controlled and agreed to take a Geodon for her agitation. Pt declined offer of olanzapine; said it brought her down too fast and made her feel nauseous.
--- NOTE | 2022-08-30 12:19 | P.NPUPN_ITS ---
Subjective NPU Subjective: Today reporting that she is doing fine. She had lots of questions about who could be a guardian and how that person would make themselves known and/or available. We discussed the fact that she certainly seems to be in better spirits with less psychotic symptoms as she resumes the Abilify. We discussed the possibility of increasing the dose to 20 tomorrow and hopefully avoiding having to return to 30 mg but feeling that likely having it with the Invega Sustenna will be necessary. Mental Status Exam MSE Comments: This is a slender white female who appeared much older than her stated age in hospital scrubs with improving grooming but adequate eye contact. Poor dentition. There was no evidence of any abnormal involuntary motor movements appreciated. Cooperative with exam in no acute distress. Speech was increased rate and volume. Mood described as better. Her affect was congruent. Thought process was more organized with decreasing use of neologisms and clang associations today. Thought content: Patient did not report suicidal or homicidal ideation. There was no clear evidence of delusional thinking but continued evidence of some overvalued ideas. She did not report auditory or visual hallucinations. Her attention and concentration appeared limited and memory was more reliable but none were formally tested. She is alert and oriented x3. Insight, judgment and impulse control improving, but limited. Vitals/I&O/Wt Last Vital Signs Temp 98.0 F 08/29/22 14:00 Pulse 80 08/29/22 14:00 Resp 18 08/29/22 19:22 BP 102/72 08/29/22 14:00 Pulse Ox 96 08/29/22 14:00 O2 Del Method 08/29/22 06:00 Data NPU 08/07/22 08:21 A&P Assessment and plan (1) Psychosis: (2) Methamphetamine use disorder, severe: (3) Altered mental status: Plan This is a 31-year-old white female who looks notably altered in mental status and a presentation consistent with methamphetamine use who presents with psychosis, confusion emotional dysregulation with significant hyperkinetic activity. 1. Continue current medication except restarted Abilify 15 mg p.o. every morning and will increase to 20 tomorrow. Gave second loading dose Invega Sustenna 156 mg IM to the deltoid today. Continued Depakote DR 1000 mg p.o. twice daily. May consider Clozaril. Depakote level 101.6 H we will consider possibly switching over to Depakote ER and whether to decrease the dose slightly of the DR. 3. Encourage individual, group and milieu therapies. 4. Encourage sober living treatment after discharge at the highest level of care to which she is willing to commit. Patient in need of inpatient substance abuse treatment. 5. KAN testing revealed only one area of concern out of 13, much improved, but continued lability depending on the day continues to suggest guardianship necessary. Episodes of emotional incontinence may be better treated with Nuedexta if possible. 6. 21-day hold granted. Guardianship hearing still not scheduled in [facility]. Exploring placement possibly with family. Involuntary Hold Information 96 Hour Hold: 96 Hour Involuntary Admission: No Attestations NPU Medical Necessity Statement*: Inpatient hospitalization is medically necessary and the clinically appropriate intervention at this time. We will monit or/initiate medications and make changes as indicated with likely length of stay 2-7 days. Will likely be dependent on guardianship and placement. Coding Level of Care Code Acute Code for [facility] Diagnoses Psychosis F29 Methamphetamine use disorder, severe F15.20 Altered mental status R41.82
[2022-08-30] MEDS: acetaminophen 325 mg Tablet 650 MG PO (12:42)
[2022-08-30] MEDS: benzocaine 20% 7 gm 1 APPLIC MUCOUS MEM ×3 (12:43→15:20)
--- NOTE | 2022-08-30 12:48 | PC.NURSE ---
Staff reported pt having a lot of tooth pain. Pt had just eaten and said part of her tooth had come out. Broken tooth noted on lower jaw. No bleeding noted. Medicated for pain with tylenol and orajel.
[2022-08-30 14:00] VITALS: BP 104/72; PULSE 85; RESP 16; TEMP 36.6; O2SAT 100
[2022-08-30] MEDS: trazodone 50 mg Tablet PO (20:30)
[2022-08-30] MEDS: hyDROXYzine 25 mg Capsule 50 MG PO (20:30)
[2022-08-30 20:39] VITALS: BP 114/76; PULSE 86; RESP 16; TEMP 36.6; O2SAT 98
[2022-08-31] MEDS: ibuprofen 600 mg Tablet PO ×3 (04:30→19:04)
[2022-08-31 05:12] VITALS: BP 101/71; PULSE 86; RESP 18; TEMP 36.6; O2SAT 99
--- NOTE | 2022-08-31 07:31 | P.NPUPN_ITS ---
Subjective NPU Subjective: Patient presents today reporting that she is doing fine. We discussed the fact that she certainly seems to be better with the resumption the Abilify. She wondered about how Abilify comes given the dose of 20mg being an odd number in her mind. She denied side effects and we discussed Dr. Mccrary returning. Mental Status Exam MSE Comments: This is a slender white female who appeared much older than her stated age in hospital scrubs with improving grooming but adequate eye contact. Poor dentition. There was no evidence of any abnormal involuntary motor movements appreciated. Cooperative with exam in no acute distress. Speech was increased rate and volume. Mood described as better. Her affect was congruent. Thought process was more organized with decreasing use of neologisms and clang associations today. Thought content: Patient did not report suicidal or homicidal ideation. There was no clear evidence of delusional thinking but continued evidence of some overvalued ideas. She did not report auditory or visual hallucinations. Her attention and concentration appeared limited and memory was more reliable but none were formally tested. She is alert and oriented x3. Insight, judgment and impulse control improving, but limited. Vitals/I&O/Wt Last Vital Signs Temp 97.8 F 08/31/22 05:12 Pulse 86 08/31/22 05:12 Resp 18 08/31/22 05:12 BP 101/71 08/31/22 05:12 Pulse Ox 99 08/31/22 05:12 O2 Del Method 08/29/22 06:00 Weight last 48 hrs Weight 71.395 kg Data NPU 08/07/22 08:21 A&P Assessment and plan (1) Psychosis: (2) Methamphetamine use disorder, severe: (3) Altered mental status: Plan This is a 31-year-old white female who looks notably altered in mental status and a presentation consistent with methamphetamine use who presents with psychosis, confusion emotional dysregulation with significant hyperkinetic activity. 1. Continued Abilify 20 mg p.o. every morning. Gave second loading dose Invega Sustenna 156 mg IM to the deltoid today. Continued Depakote DR 1000 mg p.o. twice daily. May consider Clozaril. Depakote level 101.6 H we will consider possibly switching over to Depakote ER and whether to decrease the dose slightly of the DR. 3. Encourage individual, group and milieu therapies. 4. Encourage sober living treatment after discharge at the highest level of care to which she is willing to commit. Patient in need of inpatient substance abuse treatment. 5. KAN testing revealed only one area of concern out of 13, much improved, but continued lability depending on the day continues to suggest guardianship necessary. Episodes of emotional incontinence may be better treated with Nuedexta if possible. 6. 21-day hold granted. Guardianship hearing still not scheduled in [facility]. Exploring placement possibly with family. Involuntary Hold Information 96 Hour Hold: 96 Hour Involuntary Admission: No Attestations NPU Medical Necessity Statement*: Inpatient hospitalization is medically necessary and the clinically appropriate intervention at this time. We will monitor/initiate medications and make changes as indicated with likely length of stay 2-7 days. Will likely be dependent on guardianship and placement. Coding Level of Care Code Acute Code for [facility] Diagnoses Psychosis F29 Methamphetamine use disorder, severe F15.20 Altered mental status R41.82
[2022-08-31] MEDS: diphenhydrAMINE 50 mg Capsule PO ×2 (07:39→13:28)
[2022-08-31] MEDS: acetaminophen 325 mg Tablet 650 MG PO ×2 (07:39→14:42)
[2022-08-31] MEDS: divalproex DR 500 mg Tablet 1000 MG PO ×2 (07:40→19:04)
[2022-08-31] MEDS: ARIPiprazole 30 mg Tablet 20 MG PO (07:41)
[2022-08-31] MEDS: nicotine 2 mg Gum BUCCAL ×4 (08:50→19:04)
[2022-08-31] MEDS: ARIPiprazole 10 mg Tablet 20 MG PO (10:55)
[2022-08-31] MEDS: hyDROXYzine 25 mg Capsule 50 MG PO (11:49)
[2022-08-31] MEDS: haloperidol 5 mg Tablet PO (11:49)
[2022-08-31] MEDS: LORazepam 2 mg Tablet PO (13:28)
[2022-08-31 14:00] VITALS: BP 102/69; PULSE 101; RESP 18; TEMP 36.6; O2SAT 97
[2022-08-31] MEDS: trazodone 50 mg Tablet PO (19:04)
[2022-08-31] MEDS: OLANZapine 5 mg ODT PO (19:04)
[2022-08-31 20:58] VITALS: BP 101/73; PULSE 93; RESP 18; TEMP 36.3; O2SAT 98
[2022-09-01] MEDS: ibuprofen 600 mg Tablet PO (07:52)
[2022-09-01] MEDS: ARIPiprazole 10 mg Tablet 20 MG PO (08:30)
[2022-09-01] MEDS: divalproex DR 500 mg Tablet 1000 MG PO ×2 (08:30→19:41)
[2022-09-01] MEDS: nicotine 2 mg Gum BUCCAL ×4 (09:44→19:41)
[2022-09-01] MEDS: acetaminophen 325 mg Tablet 650 MG PO (11:15)
[2022-09-01 14:00] VITALS: BP 105/58; PULSE 97; RESP 17; TEMP 36.8; O2SAT 98
[2022-09-01] MEDS: hyDROXYzine 25 mg Capsule 50 MG PO (14:09)
[2022-09-01] MEDS: OLANZapine 5 mg ODT PO (14:30)
--- NOTE | 2022-09-01 14:32 | PC.NURSE ---
PT CRYING STATING SHE JUST WANTS TO GO HOME, SHE JUST WANTS TO BE ME. ADMINISTERED PRN ANXIETY MEDICATION.
[2022-09-01] MEDS: LORazepam 2 mg Tablet PO (16:30)
[2022-09-01] MEDS: diphenhydrAMINE 50 mg Capsule PO (16:30)
--- NOTE | 2022-09-01 16:37 | PC.NURSE ---
PT REQUESTING PRN ANXIETY MEDICATION. PT REFUSED HALDOL BUT DID TAKE BENADRYL AND LORAZEPAM. PT PACING UP AND DOWN HALLWAY CRYING STATING SHE JUST WANTED TO GO HOME ATTEMPTING TO DISTRACT PATIENT DID NOT WORK.
--- NOTE | 2022-09-01 16:57 | W.PM.NPUPNS ---
Subjective NPU Subjective: Patient is a 31-year-old white female who was admitted with methamphetamine induced psychosis currently on Abilify and Invega intramuscular. She had continued to lament her situation stating that she wanted to go home. She had continue to minimize the severity of her illness and the significance of her complete and on her decompensation with inability to manage her self-care through the use of methamphetamine. She continued to have some significant crying spells on the milieu and showed evidence of continued need for as needed medications due to being inconsolable when discussing her children. Mental Status Exam MSE Comments: This is a slender white female who appeared much older than her stated age in hospital scrubs with improving grooming but adequate eye contact. Poor dentition. There was no evidence of any abnormal involuntary motor movements appreciated. Cooperative with exam in no acute distress. Speech was normal in rate and volume. Mood described as better. Her affect was congruent. Thought process was more organized with decreasing use of neologisms and clang associations today. There was continued evidence of emotional incontinence. Thought content: Patient did not report suicidal or homicidal ideation. There was no clear evidence of delusional thinking but continued evidence of some overvalued ideas. She did not report auditory or visual hallucinations. Her attention and concentration appeared limited and memory was more reliable but none were formally tested. She is alert and oriented x3. Insight, judgment and impulse control improving, but limited. Vitals/I&O/Wt Last Vital Signs Temp 98.2 F 09/01/22 14:00 Pulse 97 09/01/22 14:00 Resp 17 09/01/22 14:00 BP 105/58 09/01/22 14:00 Pulse Ox 98 09/01/22 14:00 O2 Del Method 08/31/22 14:00 Weight last 48 hrs Weight 71.395 kg Data NPU 08/07/22 08:21 A&P Assessment and plan (1) Psychosis: (2) Methamphetamine use disorder, severe: (3) Altered mental status: Plan This is a 31-year-old white female who looks notably altered in mental status and a presentation consistent with methamphetamine use who presents with psychosis, confusion emotional dysregulation with significant hyperkinetic activity. 1. Continued Abilify 20 mg p.o. every morning. Continue Invega sustenna. Continued Depakote DR 1000 mg p.o. twice daily. May consider Clozaril. Depakote level 101.6 H we will consider possibly switching over to Depakote ER and whether to decrease the dose slightly of the DR. 3. Encourage individual, group and milieu therapies. 4. Encourage sober living treatment after discharge at the highest level of care to which she is willing to commit. Patient in need of inpatient substance abuse treatment. 5. KAN testing revealed only one area of concern out of 13, much improved, but continued lability depending on the day continues to suggest guardianship necessary. Episodes of emotional incontinence may be better treated with Nuedexta if possible. 6. 21-day hold granted. Guardianship hearing still not scheduled in [facility]. Exploring placement possibly with family. Involuntary Hold Information 96 Hour Hold: 96 Hour Involuntary Admission: No Attestations NPU Medical Necessity Statement*: Inpatient hospitalization is medically necessary and the clinically appropriate intervention at this time. We will monitor/initiate medications and make changes as indicated with likely length of stay 5-10 days. Will likely be dependent on guardianship and placement. Coding Level of Care Code Established Pt Acute Code for [facility] Patient Type Established History Problem Focused Exam Problem Focused Medical Decision Making Straight Forward Diagnoses Psychosis F29 Methamphetamine use disorder, severe F15.20 Altered mental status R41.82
[2022-09-01] MEDS: trazodone 50 mg Tablet PO (19:41)
[2022-09-01 21:09] VITALS: BP 100/67; PULSE 86; RESP 16; TEMP 36.2; O2SAT 96
[2022-09-02] MEDS: divalproex DR 500 mg Tablet 1000 MG PO ×2 (07:28→19:30)
[2022-09-02] MEDS: ibuprofen 600 mg Tablet PO (07:28)
[2022-09-02] MEDS: ARIPiprazole 10 mg Tablet 20 MG PO (07:28)
[2022-09-02] MEDS: ziprasidone hcl 20 mg Capsule PO (07:56)
--- NOTE | 2022-09-02 07:56 | PC.NURSE ---
PRN GEODON 20 MG GIVEN PO PER PT C/O ANXIETY/AGITATION. TEARFUL AT DESK, ASKING FOR MORE MEDS SO I CAN BE ME TODAY
[2022-09-02] MEDS: nicotine 2 mg Gum BUCCAL ×2 (11:03→15:24)
[2022-09-02] MEDS: hyDROXYzine 25 mg Capsule 50 MG PO ×2 (12:17→19:30)
[2022-09-02] MEDS: acetaminophen 325 mg Tablet 650 MG PO (12:18)
--- NOTE | 2022-09-02 12:19 | PC.NURSE ---
PRN VISTARIL 50 MG GIVEN PO PER PT REQUEST OF MORE ANXIETY MED FLAT AFFECT NOTED, NO OUTWARD S/S OF ANXIETY NOTED, PATIENTS TENDS TO ASK FOR ANY AND ALL PRN MEDICINES SHE CAN HAVE
[2022-09-02] MEDS: LORazepam 2 mg Tablet PO (13:13)
[2022-09-02] MEDS: haloperidol 5 mg Tablet PO (13:13)
[2022-09-02] MEDS: diphenhydrAMINE 50 mg Capsule PO (13:13)
--- NOTE | 2022-09-02 13:14 | PC.NURSE ---
PRN ATIVAN/BENADRYL/HALDOL ATIVAN 2 MG GIVEN PO WITH HALDOL 5 MG PO AND BENADRYL 50 MG GIVEN PO PER PT C/O FURTHER ANXIETY/AGITATION. TEARFUL TALKING TO STAFF, JUST ASKING TO GO HOME, SPECIFICALLY ASKING FOR HALDOL
[2022-09-02 14:00] VITALS: BP 123/78; PULSE 84; RESP 18; TEMP 36.2; O2SAT 98
--- NOTE | 2022-09-02 17:44 | W.PM.NPUPNS ---
Subjective NPU Subjective: Patient is a 31-year-old white female who was admitted with methamphetamine induced psychosis currently on Abilify and Invega intramuscular. Patient had no new changes here on the unit. She continued to show evidence of emotional incontinence particularly focused around her children. She had reported that she understands that she may need a guardian and stated that she could stay with some friends of hers in the interim until such a time it was decided. Patient had reported adequate sleep. She had not required significant use of as needed medications to manage agitation. Mental Status Exam MSE Comments: This is a slender white female who appeared much older than her stated age in hospital scrubs with improving grooming but adequate eye contact. Poor dentition. There was no evidence of any abnormal involuntary motor movements appreciated. Cooperative with exam in no acute distress. Speech was normal in rate and volume. Mood described as okay. Her affect was somewhat flat today. Thought process was more organized with no use of neologisms and clang associations today. There was continued evidence of emotional incontinence. Thought content: Patient did not report suicidal or homicidal ideation. There was no clear evidence of delusional thinking but continued evidence of some overvalued ideas. She did not report auditory or visual hallucinations. Her attention and concentration appeared limited and memory was more reliable but none were formally tested. She is alert and oriented x3. Insight, judgment and impulse control improving, but limited. Vitals/I&O/Wt Last Vital Signs Temp 97.2 F L 09/02/22 14:00 Pulse 84 09/02/22 14:00 Resp 18 09/02/22 14:00 BP 123/78 09/02/22 14:00 Pulse Ox 98 09/02/22 14:00 O2 Del Method 08/31/22 14:00 Data NPU 08/07/22 08:21 A&P Assessment and plan (1) Psychosis: (2) Methamphetamine use disorder, severe: (3) Altered mental status: Plan This is a 31-year-old white female who looks notably altered in mental status and a presentation consistent with methamphetamine use who presents with psychosis, confusion emotional dysregulation with significant hyperkinetic activity. 1. Continued Abilify 20 mg p.o. every morning. Continue Invega sustenna. Continued Depakote DR 1000 mg p.o. twice daily. Depakote level 101.6 H we will consider possibly switching over to Depakote ER and whether to decrease the dose slightly of the DR. 3. Encourage individual, group and milieu therapies. 4. Encourage sober living treatment after discharge at the highest level of care to which she is willing to commit. Patient in need of inpatient substance abuse treatment. 5. KAN testing revealed only one area of concern out of 13, much improved, but continued lability depending on the day continues to suggest guardianship necessary. Episodes of emotional incontinence may be better treated with Nuedexta if possible. 6. 21-day hold granted. Guardianship hearing still not scheduled in [facility]. Exploring placement possibly with family. Involuntary Hold Information 96 Hour Hold: 96 Hour Involuntary Admission: No Attestations NPU Medical Necessity Statement*: Inpatient hospitalization is medically necessary and the clinically appropriate intervention at this time. We will monitor/initiate medications and make changes as indicated with likely length of stay 5-10 days. Will likely be dependent on guardianship and placement. Coding Level of Care Code Established Pt Acute Code for [facility] Patient Type Established History Problem Focused Exam Problem Focused Medical Decision Making Straight Forward Diagnoses Psychosis F29 Methamphetamine use disorder, severe F15.20 Altered mental status R41.82
[2022-09-02] MEDS: trazodone 50 mg Tablet PO (19:30)
[2022-09-02 19:52] VITALS: BP 105/71; PULSE 91; RESP 18; TEMP 36.8; O2SAT 97
[2022-09-03] MEDS: ibuprofen 600 mg Tablet PO ×2 (07:53→14:00)
[2022-09-03 07:55] VITALS: BP 108/61; PULSE 109; RESP 20; TEMP 36.4; O2SAT 97
[2022-09-03] MEDS: ARIPiprazole 10 mg Tablet 20 MG PO (08:20)
[2022-09-03] MEDS: divalproex DR 500 mg Tablet 1000 MG PO ×2 (08:20→20:31)
[2022-09-03] MEDS: ziprasidone hcl 20 mg Capsule PO (09:52)
[2022-09-03] MEDS: nicotine 2 mg Gum BUCCAL ×2 (10:18→14:02)
[2022-09-03] MEDS: hyDROXYzine 25 mg Capsule 50 MG PO ×2 (13:55→23:55)
[2022-09-03 14:00] VITALS: BP 106/65; PULSE 79; RESP 20; TEMP 36.8; O2SAT 94
--- NOTE | 2022-09-03 14:04 | PC.NURSE ---
Pt medicated for pain, anxiety, and provided nicotine gum per her request. Affect is depressed; pt fighting tears. When staff offered support that she would be going home, pt said she might be leaving, but it wouldn't to her home. Encouragement provided.
--- NOTE | 2022-09-03 16:22 | W.PM.NPUPNS ---
Subjective NPU Subjective: Patient is a 31-year-old white female who was admitted with methamphetamine induced psychosis currently on Abilify and Invega intramuscular. The patient continue to report feeling frustrated that she was still here. The patient had continued to minimize the significance of her substance use that had led to her substantial decompensation requiring many days to recover in the hospital. The patient reports that she would prefer to consider leaving home and would be agreeable to having a friend take her to the guardianship hearing. The patient was informed of the guardian she appearing date had not yet been set. Patient had reported that she was feeling frustrated and stated that things remain the same here except everyone else is going home. Mental Status Exam MSE Comments: This is a slender white female who appeared much older than her stated age in hospital scrubs with improving grooming but adequate eye contact. Poor dentition. There was no evidence of any abnormal involuntary motor movements appreciated. Cooperative with exam in no acute distress. Speech was normal in rate and volume. Mood described as not good. Her affect was restricted today. Thought process was linear but increased use of clang associations today. There was continued evidence of emotional incontinence. Thought content: Patient did not report suicidal or homicidal ideation. There was no clear evidence of delusional thinking but continued evidence of some overvalued ideas. She did not report auditory or visual hallucinations. Her attention and concentration appeared limited and memory was more reliable but none were formally tested. She is alert and oriented x3. Insight, judgment and impulse control improving, but limited. Vitals/I&O/Wt Last Vital Signs Temp 98.3 F 09/03/22 14:00 Pulse 79 09/03/22 14:00 Resp 20 H 09/03/22 14:00 BP 106/65 09/03/22 14:00 Pulse Ox 94 09/03/22 14:00 O2 Del Method 09/03/22 07:55 Data NPU 08/07/22 08:21 A&P Assessment and plan (1) Psychosis: (2) Methamphetamine use disorder, severe: (3) Altered mental status: Plan This is a 31-year-old white female who looks notably altered in mental status and a presentation consistent with methamphetamine use who presents with psychosis, confusion emotional dysregulation with significant hyperkinetic activity. 1. Continued Abilify 20 mg p.o. every morning. Continue Invega sustenna. Continued Depakote DR 1000 mg p.o. twice daily. Depakote level 101.6 H we will consider possibly switching over to Depakote ER and whether to decrease the dose slightly of the DR. 3. Encourage individual, group and milieu therapies. 4. Encourage sober living treatment after discharge at the highest level of care to which she is willing to commit. Patient in need of inpatient substance abuse treatment. 5. KAN testing revealed only one area of concern out of 13, much improved, but continued lability depending on the day continues to suggest guardianship necessary. Episodes of emotional incontinence may be better treated with Nuedexta if possible. 6. 21-day hold granted. Guardianship hearing still not scheduled in [facility]. Placement with family in place of placement in [facility] remains less likely at this time. Involuntary Hold Information 96 Hour Hold: 96 Hour Involuntary Admission: No Attestations NPU Medical Necessity Statement*: Inpatient hospitalization is medically necessary and the clinically appropriate intervention at this time. We will monitor/initiate medications and make changes as indicated with likely length of stay 10-15 days. Will likely be dependent on guardianship and placement. Coding Level of Care Code Established Pt Acute Code for Chg Fwd Patient Type Established History Problem Focused Exam Problem Focused Medical Decision Making Straight Forward Diagnoses Psychosis F29 Methamphetamine use disorder, severe F15.20 Altered mental status R41.82
[2022-09-03] MEDS: OLANZapine 5 mg ODT PO (18:25)
[2022-09-03 20:36] VITALS: BP 110/73; PULSE 86; RESP 18; TEMP 36.6; O2SAT 97
[2022-09-04] MEDS: ibuprofen 600 mg Tablet PO ×2 (02:31→08:11)
[2022-09-04] MEDS: ARIPiprazole 10 mg Tablet 20 MG PO (08:11)
[2022-09-04] MEDS: divalproex DR 500 mg Tablet 1000 MG PO ×2 (08:12→20:05)
[2022-09-04] MEDS: nicotine 2 mg Gum BUCCAL ×2 (09:13→11:55)
[2022-09-04] MEDS: acetaminophen 325 mg Tablet 650 MG PO (09:29)
[2022-09-04] MEDS: haloperidol 5 mg Tablet PO (13:13)
[2022-09-04] MEDS: LORazepam 2 mg Tablet PO (13:14)
[2022-09-04] MEDS: diphenhydrAMINE 50 mg Capsule PO (13:14)
--- NOTE | 2022-09-04 13:21 | PC.NURSE ---
Administered an oral B52, pt was asking for help, pt crying and very upset. Pt was consoled and comforted by a BANK CLERK and the med nurse.
[2022-09-04 14:00] VITALS: BP 106/68; PULSE 99; RESP 18; TEMP 36.5; O2SAT 96
--- NOTE | 2022-09-04 16:39 | W.PM.NPUPNS ---
Subjective NPU Subjective: Patient is a 31-year-old white female who was admitted with methamphetamine induced psychosis currently on Abilify and Invega intramuscular. Patient continued to appear depressed and frustrated over being hospitalized. She reported no side effects from her medication. She reported adequate sleep. She had required some as needed medications again after having an emotional outburst on the unit. Staff notes the patient had made more statements that appeared illogical and difficult to understand again. She had engaged in appropriate self-care at this time. She had continued to minimize the effects of her substance abuse on her emotional instability and emotional dyscontrol. Mental Status Exam MSE Comments: This is a slender white female who appeared much older than her stated age in hospital scrubs with improving grooming but adequate eye contact. Poor dentition. There was no evidence of any abnormal involuntary motor movements appreciated. Cooperative with exam in no acute distress. Speech was normal in rate and volume. Mood described as sad. Her affect was flat today. Thought process was linear but increased use of clang associations today and more superficial. There was continued evidence of emotional incontinence. Thought content: Patient did not report suicidal or homicidal ideation. There was no clear evidence of delusional thinking but continued evidence of some overvalued ideas. She did not report auditory or visual hallucinations. Her attention and concentration appeared limited and memory was more reliable but none were formally tested. She is alert and oriented x3. Insight, judgment and impulse control improving, but limited. Vitals/I&O/Wt Last Vital Signs Temp 97.7 F 09/04/22 14:00 Pulse 99 09/04/22 14:00 Resp 18 09/04/22 14:00 BP 106/68 09/04/22 14:00 Pulse Ox 96 09/04/22 14:00 O2 Del Method 09/03/22 20:36 Data NPU 08/07/22 08:21 A&P Assessment and plan (1) Psychosis: (2) Methamphetamine use disorder, severe: (3) Altered mental status: Plan This is a 31-year-old white female who looks notably altered in mental status and a presentation consistent with methamphetamine use who presents with psychosis, confusion emotional dysregulation with significant hyperkinetic activity. 1. Continued Abilify 20 mg p.o. every morning. Continue Invega sustenna. Continued Depakote DR 1000 mg p.o. twice daily. Depakote level 101.6 H we will consider possibly switching over to Depakote ER and whether to decrease the dose slightly of the DR. 3. Encourage individual, group and milieu therapies. 4. Encourage sober living treatment after discharge at the highest level of care to which she is willing to commit. Patient in need of inpatient substance abuse treatment. 5. KAN testing revealed only one area of concern out of 13, much improved, but continued lability depending on the day continues to suggest guardianship necessary. Episodes of emotional incontinence may be better treated with Nuedexta if possible. 6. 21-day hold granted. Guardianship hearing still not scheduled in [facility]. Placement with family in place of placement in [facility] remains less likely at this time. Involuntary Hold Information 96 Hour Hold: 96 Hour Involuntary Admission: No Attestations NPU Medical Necessity Statement*: Inpatient hospitalization is medically necessary and the clinically appropriate intervention at this time. We will monitor/initiate medications and make changes as indicated with likely length of stay 10-15 days. Will likely be dependent on guardianship and placement. Coding Level of Care Code Established Pt Acute Code for Chg Fwd Patient Type Established History Problem Focused Exam Problem Focused Medical Decision Making Straight Forward Diagnoses Psychosis F29 Methamphetamine use disorder, severe F15.20 Altered mental status R41.82
[2022-09-04] MEDS: trazodone 50 mg Tablet PO (20:05)
[2022-09-04 21:42] VITALS: BP 109/76; PULSE 99; RESP 17; TEMP 36.7; O2SAT 95
[2022-09-05] MEDS: LORazepam 2 mg Tablet PO ×2 (05:59→12:00)
[2022-09-05 06:00] VITALS: BP 105/73; PULSE 96; RESP 16; TEMP 36.9; O2SAT 96
--- NOTE | 2022-09-05 06:02 | PC.NURSE ---
Pt reported having anxiety. 2mg ativan given
[2022-09-05] MEDS: nicotine 2 mg Gum BUCCAL ×3 (06:25→10:26)
[2022-09-05] MEDS: divalproex DR 500 mg Tablet 1000 MG PO ×2 (08:18→21:59)
[2022-09-05] MEDS: ARIPiprazole 10 mg Tablet 20 MG PO (08:18)
[2022-09-05] MEDS: hyDROXYzine 25 mg Capsule 50 MG PO (11:02)
[2022-09-05] MEDS: haloperidol 5 mg Tablet PO (12:00)
[2022-09-05 14:00] VITALS: BP 89/61; PULSE 103; RESP 18; TEMP 36.9; O2SAT 97
--- NOTE | 2022-09-05 15:26 | P.NPUPN_ITS ---
Subjective NPU Subjective: Patient is a 31-year-old white female who was admitted with methamphetamine induced psychosis currently on Abilify and Invega intramuscular. Patient continued to have episodes of crying on the unit. She had reported feeling sad about her continued hospitalization. She states that she wants to go home and resume her job. Patient had continued to minimize the significance of her substance use and effects that it had on her overall mental health and wellbeing. She reports that she had not remembered much of what she had been doing during that time here in the hospital. Mental Status Exam MSE Comments: This is a slender white female who appeared much older than her stated age in hospital scrubs with improving grooming but adequate eye contact. Poor dentition. There was no evidence of any abnormal involuntary motor movements appreciated. Cooperative with exam in no acute distress. Speech was normal in rate and volume. Mood described as sad. Her affect was more anxious today. Thought process was linear with no use of clang associations appreciated today. There was continued evidence of emotional incontinence with periods of intense crying. Thought content: Patient did not report suicidal or homicidal ideation. There was no clear evidence of delusional thinking but continued evidence of some overvalued ideas. She did not report auditory or visual hallucinations. Her attention and concentration appeared limited and memory was more reliable but none were formally tested. She is alert and oriented x3. Insight, judgment and impulse control improving, but limited. Vitals/I&O/Wt Last Vital Signs Temp 98.4 F 09/05/22 14:00 Pulse 103 H 09/05/22 14:00 Resp 18 09/05/22 14:00 BP 89/61 09/05/22 14:00 Pulse Ox 97 09/05/22 14:00 O2 Del Method 09/05/22 14:00 Data NPU 08/07/22 08:21 A&P Assessment and plan (1) Psychosis: (2) Methamphetamine use disorder, severe: (3) Altered mental status: Plan This is a 31-year-old white female who looks notably altered in mental status and a presentation consistent with methamphetamine use who presents with psychosis, confusion emotional dysregulation with significant hyperkinetic activity. 1. Continued Abilify 20 mg p.o. every morning. Continue Invega sustenna. Continued Depakote DR 1000 mg p.o. twice daily. 3. Encourage individual, group and milieu therapies. 4. Encourage sober living treatment after discharge at the highest level of care to which she is willing to commit. Patient in need of inpatient substance abuse treatment. 5. KAN testing revealed only one area of concern out of 13, much improved, but continued lability depending on the day continues to suggest guardianship necessary. Episodes of emotional incontinence may be better treated with Nuedexta if possible. 6. 21-day hold granted. Guardianship hearing still not scheduled in [facility]. Placement with family in place of placement in [facility] remains less likely at this time. Involuntary Hold Information 96 Hour Hold: 96 Hour Involuntary Admission: No Attestations NPU Medical Necessity Statement*: Inpatient hospitalization is medically necessary and the clinically appropriate intervention at this time. We will monitor/initiate medications and make changes as indicated with likely length of stay 10-15 days. Will likely be dependent on guardianship and placement. Coding Level of Care Code Established Pt Acute Code for Chg Fwd Patient Type Established History Problem Focused Exam Problem Focused Medical Decision Making Straight Forward Diagnoses Psychosis F29 Methamphetamine use disorder, severe F15.20 Altered mental status R41.82
[2022-09-06] MEDS: ARIPiprazole 10 mg Tablet 20 MG PO (09:06)
[2022-09-06] MEDS: divalproex DR 500 mg Tablet 1000 MG PO ×2 (09:06→19:26)
[2022-09-06] MEDS: diphenhydrAMINE 50 mg Capsule PO (09:09)
[2022-09-06] MEDS: haloperidol 5 mg Tablet PO ×2 (09:09→18:32)
[2022-09-06] MEDS: LORazepam 2 mg Tablet PO ×2 (09:09→18:32)
[2022-09-06] MEDS: nicotine 2 mg Gum BUCCAL ×2 (09:23→18:17)
[2022-09-06 14:00] VITALS: BP 108/73; PULSE 105; RESP 17; TEMP 36.6; O2SAT 97
--- NOTE | 2022-09-06 14:12 | W.PM.NPUPNS ---
Subjective NPU Subjective: Patient is a 31-year-old white female who was admitted with methamphetamine induced psychosis currently on Abilify and Invega intramuscular. Patient continued to report frustration with being here in the hospital. She reports that she does not need to be here until guardianship takes place. She states that she was functioning well prior to her hospitalization here. She had acknowledged the use of methamphetamine and stated that she wished to continue to see her children. The patient continued to minimize the severity of her substance use and the extent it which it had affected her leading to her hospitalization. Mental Status Exam MSE Comments: This is a slender white female who appeared much older than her stated age in hospital scrubs with improving grooming but adequate eye contact. Poor dentition. There was no evidence of any abnormal involuntary motor movements appreciated. Cooperative with exam in no acute distress. Speech was normal in rate and volume. Mood described as down. Her affect was more tearful and sad. Thought process was linear with no use of clang associations appreciated today. There was continued evidence of emotional incontinence with periods of intense crying. Thought content: Patient did not report suicidal or homicidal ideation. There was no clear evidence of delusional thinking but continued evidence of some overvalued ideas. She did not report auditory or visual hallucinations. Her attention and concentration appeared limited and memory was more reliable but none were formally tested. She is alert and oriented x3. Insight, judgment and impulse control improving, but limited. Vitals/I&O/Wt Last Vital Signs Temp 98.4 F 09/05/22 14:00 Pulse 103 H 09/05/22 14:00 Resp 18 09/05/22 14:00 BP 89/61 09/05/22 14:00 Pulse Ox 97 09/05/22 14:00 O2 Del Method 09/05/22 14:00 Data NPU 08/07/22 08:21 A&P Assessment and plan (1) Psychosis: (2) Methamphetamine use disorder, severe: (3) Altered mental status: Plan This is a 31-year-old white female who looks notably altered in mental status and a presentation consistent with methamphetamine use who presents with psychosis, confusion emotional dysregulation with significant hyperkinetic activity. 1. Continued Abilify 20 mg p.o. every morning. Continue Invega sustenna. Continued Depakote DR 1000 mg p.o. twice daily. 3. Encourage individual, group and milieu therapies. 4. Encourage sober living treatment after discharge at the highest level of care to which she is willing to commit. Patient in need of inpatient substance abuse treatment. 5. KAN testing revealed only one area of concern out of 13, much improved, but continued lability depending on the day continues to suggest guardianship necessary. Episodes of emotional incontinence may be better treated with Nuedexta if possible. 6. 21-day hold granted. [facility]ians[facility] scheduled [facility]. Placement with family in place of placement in [facility] remains less likely at this time. Involuntary Hold Information 96 Hour Hold: 96 Hour Involuntary Admission: No Attestations NPU Medical Necessity Statement*: Inpatient hospitalization is medically necessary and the clinically appropriate intervention at this time. We will monitor/initiate medications and make changes as indicated with likely length of stay 10-15 days. Will likely be dependent on guardianship and placement. Coding Level of Care Code Established Pt Acute Code for Chg Fwd Patient Type Established History Problem Focused Exam Problem Focused Medical Decision Making Straight Forward Diagnoses Psychosis F29 Methamphetamine use disorder, severe F15.20 Altered mental status R41.82
--- NOTE | 2022-09-06 18:31 | ECG_ITS ---
[facility] Test Date: 2022-09-06 Pat Name: Milly Cook Department: Room: 131 Gender: Female Wood Technologist: : 1990 Requested By: Alessio Mccrary Order Number: [id number] Aldo MD: Paty Kiran M.D. Measurements Intervals [place] Rate: 92 P: 66 MT: 175 QRS: 63 QRSD: 110 T: 57 QT: 351 QTc: 434 Interpretive Statements SINUS RHYTHM INCOMPLETE RIGHT BUNDLE BRANCH BLOCK [90+ ms QRS DURATION, TERMINAL R IN V1/V2, 40+ ms S IN I/aVL/V4/V5/V6] NONSPECIFIC T-WAVE ABNORMALITY No previous ECG available for comparison Electronically Signed On 09-07-2022 8:46:58 PROGRAM ASSISTANT by Paty Kiran M.D. [id number]
[2022-09-06 18:32] VITALS: PULSE 92
--- NOTE | 2022-09-06 18:43 | PC.NURSE ---
Patient sitting in dayroom with peers; c/o to staff she is having chest pain; pt. crying and holding lt side of chest. vital signs 107/91-168-12-98% ra. assisted to room and to bed. Stat EKG ordered and performed. Patient given prn Haldol 5mg and prn Ativan 2mg as ordered. Nurse notified maintenance supervisor mechanicalAnusha.
--- NOTE | 2022-09-06 19:00 | PC.NURSE ---
Nurse went to check on patient in room; pt; received in dayroom with peers. Nurse asked pt. to please return to room and rest so the medication she received ensure she is feeling better. Patient stated she has to go call her kis; nurse stated you passed by the phone and was in the dayroom; pt. stated I had to find out who won the game; nurse encourage patient several times to return to her room but patient cont. to state, ' I have to go call my kids. Nurse asked her is her chest still hurting and patient continue to state ,I have to go call my kids. . Refused to go to room and refused to answer nurse questions.
--- NOTE | 2022-09-06 19:41 | PC.NURSE ---
Dr. Mccrary notified of patient compliants and EKG done per Nurse Mayo.
[2022-09-06 20:00] VITALS: BP 99/65; PULSE 80; RESP 16; TEMP 37; O2SAT 97
[2022-09-07 05:03] VITALS: BP 103/72; PULSE 112; RESP 18; TEMP 36.5; O2SAT 96
[2022-09-07] MEDS: nicotine 2 mg Gum BUCCAL ×3 (07:18→21:53)
[2022-09-07] MEDS: ARIPiprazole 10 mg Tablet 20 MG PO (07:50)
[2022-09-07] MEDS: divalproex DR 500 mg Tablet 1000 MG PO ×2 (07:50→19:54)
[2022-09-07 14:00] VITALS: BP 115/71; PULSE 113; RESP 18; TEMP 36.8; O2SAT 95
--- NOTE | 2022-09-07 14:22 | P.NPUPN_ITS ---
Subjective NPU Subjective: Patient is a 31-year-old white female who was admitted with methamphetamine induced psychosis currently on Abilify and Invega intramuscular. The patient had reported that she had been over 40 days clean off and amphetamines. She reports continued sadness over not being able to talk to her children. She continued to have episodes of intense tearfulness and crying that occurred quickly when discussing her lack of being able to see her children for months. She had reported that she should be given a chance to fix her situation and did not need a guardian. She had described how the use of her substances had played a role in putting her here in the hospital but stated that she was done with using drugs. Mental Status Exam MSE Comments: This is a slender white female who appeared much older than her stated age in hospital scrubs with improving grooming but adequate eye contact. Poor dentition. There was no evidence of any abnormal involuntary motor movements appreciated. Cooperative with exam in no acute distress. Speech was normal in rate and volume. Mood described as the same Her affect was restricted in range and flat. Thought process was linear with no use of clang associations appreciated today. There was continued evidence of emotional incontinence with periods of intense crying. Thought content: Patient did not report suicidal or homicidal ideation. There was no clear evidence of delusional thinking but continued evidence of some overvalued ideas. She did not report auditory or visual hallucinations. Her attention and concentration appeared limited and memory was more reliable but none were formally tested. She is alert and oriented x3. Insight, judgment and impulse control improving, but limited. Vitals/I&O/Wt Last Vital Signs Temp 97.7 F 09/07/22 05:03 Pulse 112 H 09/07/22 05:03 Resp 18 09/07/22 05:03 BP 103/72 09/07/22 05:03 Pulse Ox 96 09/07/22 05:03 O2 Del Method 09/05/22 14:00 Weight last 48 hrs Weight 80.456 kg Weight 80.649 kg Data NPU 08/07/22 08:21 A&P Assessment and plan (1) Psychosis: (2) Methamphetamine use disorder, severe: (3) Altered mental status: Plan This is a 31-year-old white female who looks notably altered in mental status and a presentation consistent with methamphetamine use who presents with psychosis, confusion emotional dysregulation with significant hyperkinetic activity. 1. Continued Abilify 20 mg p.o. every morning. Continue Invega sustenna. Continued Depakote DR 1000 mg p.o. twice daily. 3. Encourage individual, group and milieu therapies. 4. Encourage sober living treatment after discharge at the highest level of care to which she is willing to commit. Patient in need of inpatient substance abuse treatment. 5. KAN testing revealed only one area of concern out of 13, much improved, but continued lability depending on the day continues to suggest guardianship necessary. Episodes of emotional incontinence may be better treated with Nuedexta if possible. 6. 21-day hold granted. Guardianship hearing still not scheduled in [facility]. Placement with family in place of placement in [facility] remains less likely at this time. Involuntary Hold Information 96 Hour Hold: 96 Hour Involuntary Admission: No Attestations NPU Medical Necessity Statement*: Inpatient hospitalization is medically necessary and the clinically appropriate intervention at this time. We will monitor/initiate medications and make changes as indicated with likely length of stay 10-15 days. Will likely be dependent on guardianship and placement. Coding Level of Care Code Established Pt Acute Code for Chg Fwd Patient Type Established History Problem Focused Exam Problem Focused Medical Decision Making Straight Forward Diagnoses Psychosis F29 Methamphetamine use disorder, severe F15.20 Altered mental status R41.82
[2022-09-07] MEDS: hyDROXYzine 25 mg Capsule 50 MG PO ×2 (14:23→21:57)
--- NOTE | 2022-09-07 14:23 | PC.NURSE ---
PRN VISTARIL 50 MG GIVEN PO PER PT C/O STATED ANXIETY, PT TEARFUL, SAYING SHE JUST WANTS TO GO HOME
--- NOTE | 2022-09-07 16:02 | PC.NURSE ---
EMERGENCY CONTACT INFO LIZET DÍAZ [phone] WILIAM DÍAZ [phone] BRI VANG [phone]
[2022-09-07] MEDS: trazodone 50 mg Tablet PO ×2 (19:54→21:00)
[2022-09-07] MEDS: ibuprofen 600 mg Tablet PO (21:00)
[2022-09-07 22:00] VITALS: BP 102/72; PULSE 96; RESP 18; TEMP 36.8; O2SAT 98
[2022-09-08] MEDS: ibuprofen 600 mg Tablet PO (05:45)
[2022-09-08 06:00] VITALS: BP 100/63; PULSE 83; RESP 16; TEMP 36.7; O2SAT 97
[2022-09-08] MEDS: divalproex DR 500 mg Tablet 1000 MG PO ×2 (08:32→19:14)
[2022-09-08] MEDS: ARIPiprazole 10 mg Tablet 20 MG PO (08:32)
[2022-09-08] MEDS: nicotine 2 mg Gum BUCCAL ×4 (08:34→18:42)
[2022-09-08] MEDS: hyDROXYzine 25 mg Capsule 50 MG PO (13:26)
[2022-09-08 14:00] VITALS: BP 115/83; PULSE 93; RESP 18; TEMP 36.4; O2SAT 98
--- NOTE | 2022-09-08 15:59 | W.PM.NPUPNS ---
Subjective NPU Subjective: Patient is a 31-year-old white female who was admitted with methamphetamine induced psychosis currently on Abilify and Invega intramuscular. The patient had continuous episodes of crying on the unit when discussing her children. She had reported some increased hopefulness with being able to communicate through video chat with her children. She had reported no cravings for drugs or alcohol. She reported no side effects from her medication. She had been able to attend groups and appeared to be engaged in group therapy today which focused on recovery and insomnia with ways to improve sleep. Patient had reported that she was again done using drugs. Mental Status Exam MSE Comments: This is a slender white female who appeared much older than her stated age in hospital scrubs with improving grooming but adequate eye contact. Poor dentition. There was no evidence of any abnormal involuntary motor movements appreciated. Cooperative with exam in no acute distress. Speech was normal in rate and volume. Mood described as okay. Her affect was restricted in range and flat. Thought process was linear with no use of clang associations appreciated today. There was continued evidence of emotional incontinence with periods of intense crying but briefer periods of time. Thought content: Patient did not report suicidal or homicidal ideation. There was no clear evidence of delusional thinking but continued evidence of some overvalued ideas. She did not report auditory or visual hallucinations. Her attention and concentration appeared limited and memory was more reliable but none were formally tested. She is alert and oriented x3. Insight, judgment and impulse control improving, but limited. Vitals/I&O/Wt Last Vital Signs Temp 98.0 F 09/08/22 06:00 Pulse 83 09/08/22 06:00 Resp 16 09/08/22 06:00 BP 100/63 09/08/22 06:00 Pulse Ox 97 09/08/22 06:00 O2 Del Method 09/07/22 22:00 Weight last 48 hrs Weight 80.456 kg Weight 80.649 kg Data NPU 08/07/22 08:21 A&P Assessment and plan (1) Psychosis: (2) Methamphetamine use disorder, severe: (3) Altered mental status: Plan This is a 31-year-old white female who looks notably altered in mental status and a presentation consistent with methamphetamine use who presents with psychosis, confusion emotional dysregulation with significant hyperkinetic activity. 1. Continued Abilify 20 mg p.o. every morning. Continue Invega sustenna. Continued Depakote DR 1000 mg p.o. twice daily. 3. Encourage individual, group and milieu therapies. 4. Encourage sober living treatment after discharge at the highest level of care to which she is willing to commit. Patient in need of inpatient substance abuse treatment. 5. KAN testing revealed only one area of concern out of 13, much improved, but continued lability depending on the day continues to suggest guardianship necessary. Episodes of emotional incontinence may be better treated with Nuedexta if possible. 6. 21-day hold granted. Guardianship hearing still not scheduled in [facility]. Placement with family in place of placement in [facility] remains less likely at this time. Involuntary Hold Information 96 Hour Hold: 96 Hour Involuntary Admission: No Attestations NPU Medical Necessity Statement*: Inpatient hospitalization is medically necessary and the clinically appropriate intervention at this time. We will monitor/initiate medications and make changes as indicated with likely length of stay 10-15 days. Will likely be dependent on guardianship and placement. Coding Level of Care Code Established Pt Acute Code for Chg Fwd Patient Type Established History Problem Focused Exam Problem Focused Medical Decision Making Straight Forward Diagnoses Psychosis F29 Methamphetamine use disorder, severe F15.20 Altered mental status R41.82
[2022-09-08] MEDS: haloperidol 5 mg Tablet PO (17:16)
[2022-09-08] MEDS: trazodone 50 mg Tablet PO ×2 (19:14→23:16)
[2022-09-08 22:00] VITALS: BP 101/72; PULSE 83; RESP 18; TEMP 36.5; O2SAT 95
[2022-09-09 06:00] VITALS: BP 101/72; PULSE 83; RESP 16; TEMP 36.5; O2SAT 95
[2022-09-09] MEDS: divalproex DR 500 mg Tablet 1000 MG PO ×2 (08:30→19:37)
[2022-09-09] MEDS: ARIPiprazole 10 mg Tablet 20 MG PO (08:30)
[2022-09-09] MEDS: nicotine 2 mg Gum BUCCAL ×3 (09:32→19:37)
[2022-09-09] MEDS: hyDROXYzine 25 mg Capsule 50 MG PO (11:15)
--- NOTE | 2022-09-09 11:20 | PC.NURSE ---
PRN Sealing Machine Operator Patient presented to nurses' station crying because she stated what they were doing in group therapy was making her sad. This RN administered vistaril 50 mg PO. Practiced deep breathing with patient and encouraged her to finish group therapy if at all possible and if she was filling overwhelmed to let me know.
[2022-09-09 14:00] VITALS: BP 96/68; PULSE 91; RESP 16; TEMP 36.6; O2SAT 100
[2022-09-09] MEDS: OLANZapine 5 mg ODT PO (16:21)
--- NOTE | 2022-09-09 16:57 | W.PM.NPUPNS ---
Subjective NPU Subjective: Patient is a 31-year-old white female who was admitted with methamphetamine induced psychosis currently on Abilify and Invega intramuscular. Patient requested continued ability to video chat with her children. She had reported an extended history of difficulties with intense periods of crying that she states began in childhood. She had been compliant on the milieu. She had shown continued evidence of emotional incontinence for brief periods of time. She had reported that she wished to be given a chance to avoid guardianship and resume her life back in her home. She had acknowledged that she would likely need to stay with a friend instead of staying in her car. She reported that she felt that the medications had been helpful for her and continued to report that she had hoped that an alternative could be considered instead of guardianship. Patient was redirectable and appeared to be engaged in groups on the unit. Mental Status Exam MSE Comments: This is a slender white female who appeared much older than her stated age in hospital scrubs with improving grooming but adequate eye contact. Poor dentition. There was no evidence of any abnormal involuntary motor movements appreciated. Cooperative with exam in no acute distress. Speech was normal in rate and volume. Mood described as good. Her affect was somewhat flat. Thought process was linear with no use of clang associations appreciated today. There was continued evidence of emotional incontinence with periods of intense crying but briefer periods of time. Thought content: Patient did not report suicidal or homicidal ideation. There was no clear evidence of delusional thinking but continued evidence of some overvalued ideas. She did not report auditory or visual hallucinations. Her attention and concentration appeared limited and memory was more reliable but none were formally tested. She is alert and oriented x3. Insight, judgment and impulse control improving, but limited. Vitals/I&O/Wt Last Vital Signs Temp 98 F 09/09/22 14:00 Pulse 91 09/09/22 14:00 Resp 16 09/09/22 14:00 BP 96/68 09/09/22 14:00 Pulse Ox 100 09/09/22 14:00 O2 Del Method 09/09/22 14:00 Data NPU 08/07/22 08:21 A&P Assessment and plan (1) Psychosis: (2) Methamphetamine use disorder, severe: (3) Altered mental status: Plan This is a 31-year-old white female who looks notably altered in mental status and a presentation consistent with methamphetamine use who presents with psychosis, confusion emotional dysregulation with significant hyperkinetic activity. 1. Continued Abilify 20 mg p.o. every morning. Continue Invega sustenna. Continued Depakote DR 1000 mg p.o. twice daily. 3. Encourage individual, group and milieu therapies. 4. Encourage sober living treatment after discharge at the highest level of care to which she is willing to commit. Patient in need of inpatient substance abuse treatment. 5. KAN testing revealed only one area of concern out of 13, much improved, but continued lability depending on the day continues to suggest guardianship necessary. Episodes of emotional incontinence may be better treated with Nuedexta if possible. 6. 21-day hold granted. Guardianship hearing still not scheduled in [facility]. Placement with family in place of placement in [facility] remains less likely at this time. Involuntary Hold Information 96 Hour Hold: 96 Hour Involuntary Admission: No Attestations NPU Medical Necessity Statement*: Inpatient hospitalization is medically necessary and the clinically appropriate intervention at this time. We will monitor/initiate medications and make changes as indicated with likely length of stay 10-15 days. Will likely be dependent on guardianship and placement. Coding Level of Care Code Established Pt Acute Code for Chg Fwd Patient Type Established History Problem Focused Exam Problem Focused Medical Decision Making Straight Forward Diagnoses Psychosis F29 Methamphetamine use disorder, severe F15.20 Altered mental status R41.82
[2022-09-09] MEDS: trazodone 50 mg Tablet PO (19:37)
[2022-09-09 20:19] VITALS: BP 93/60; PULSE 77; RESP 18; TEMP 36.9; O2SAT 96
[2022-09-10 05:39] VITALS: RESP 16
[2022-09-10] MEDS: ARIPiprazole 10 mg Tablet 20 MG PO (08:48)
[2022-09-10] MEDS: divalproex DR 500 mg Tablet 1000 MG PO ×2 (08:49→20:29)
[2022-09-10] MEDS: nicotine 2 mg Gum BUCCAL (10:04)
[2022-09-10 14:00] VITALS: BP 112/74; PULSE 104; RESP 17; TEMP 36.6; O2SAT 99
--- NOTE | 2022-09-10 16:23 | P.NPUPN_ITS ---
Subjective NPU Subjective: Patient is a 31-year-old white female who was admitted with methamphetamine induced psychosis currently on Abilify and Invega intramuscular. She had reported some improved mood after having a good visit with her children through a virtual visit on video chat. She had stated that she was willing to consider outpatient treatment if a guardian was not to be appointed. The patient reported no side effects from her current medication. She had required the use of as needed medications yesterday for anxiety and agitation but she was more redirectable. She had reported that she had already spoken to her friends regarding staying with them if she needed to get back on her feet again. Mental Status Exam MSE Comments: This is a slender white female who appeared much older than her stated age in hospital scrubs with improving grooming but adequate eye contact. Poor dentition. There was no evidence of any abnormal involuntary motor movements appreciated. Cooperative with exam in no acute distress. Speech was normal in rate and volume. Mood described as good. Her affect remained flat. Thought process was linear with no use of clang associations appreciated today. There was continued evidence of emotional incontinence with periods of intense crying but briefer periods of time. Thought content: Patient did not report suicidal or homicidal ideation. There was no clear evidence of delusional thinking but continued evidence of some overvalued ideas. She did not report auditory or visual hallucinations. Her attention and concentration appeared limited and memory was more reliable but none were formally tested. She is alert and oriented x3. Insight, judgment and impulse controlwere improving, but remained guarded at this time. Vitals/I&O/Wt Last Vital Signs Temp 98.4 F 09/09/22 20:19 Pulse 77 09/09/22 20:19 Resp 16 09/10/22 05:39 BP 93/60 09/09/22 20:19 Pulse Ox 96 09/09/22 20:19 O2 Del Method 09/09/22 14:00 Data NPU 08/07/22 08:21 A&P Assessment and plan (1) Psychosis: (2) Methamphetamine use disorder, severe: (3) Altered mental status: Plan This is a 31-year-old white female who looks notably altered in mental status and a presentation consistent with methamphetamine use who presents with psychosis, confusion emotional dysregulation with significant hyperkinetic activity. 1. Continued Abilify 20 mg p.o. every morning. Continue Invega sustenna. Continued Depakote DR 1000 mg p.o. twice daily. 3. Encourage individual, group and milieu therapies. 4. Encourage sober living treatment after discharge at the highest level of care to which she is willing to commit. Patient in need of inpatient substance abuse treatment. 5. KAN testing revealed only one area of concern out of 13, much improved, but continued lability depending on the day continues to suggest guardianship necessary. Episodes of emotional incontinence may be better treated with Nuedexta if possible. 6. 21-day hold granted. Guardianship hearing still not scheduled in [facility]. Placement with family in place of placement in [facility] remains less likely at this time. Involuntary Hold Information 96 Hour Hold: 96 Hour Involuntary Admission: No Attestations NPU Medical Necessity Statement*: Inpatient hospitalization is medically necessary and the clinically appropriate intervention at this time. We will monitor/initiate medications and make changes as indicated with likely length of stay 10-15 days. Will likely be dependent on guardianship and placement. Coding Level of Care Code Established Pt Acute Code for Chg Fwd Patient Type Established History Problem Focused Exam Problem Focused Medical Decision Making Straight Forward Diagnoses Psychosis F29 Methamphetamine use disorder, severe F15.20 Altered mental status R41.82
[2022-09-10] MEDS: trazodone 50 mg Tablet PO (20:29)
[2022-09-10 20:59] VITALS: BP 108/75; PULSE 98; RESP 16; TEMP 36.8; O2SAT 96
[2022-09-11] MEDS: trazodone 50 mg Tablet PO ×2 (01:41→20:03)
[2022-09-11] MEDS: ARIPiprazole 10 mg Tablet 20 MG PO (08:44)
[2022-09-11] MEDS: divalproex DR 500 mg Tablet 1000 MG PO ×2 (08:45→20:03)
[2022-09-11] MEDS: nicotine 2 mg Gum BUCCAL ×2 (10:12→18:00)
--- NOTE | 2022-09-11 13:19 | W.PM.NPUPNS ---
Subjective NPU Subjective: Patient presents today reporting that things are going okay. She was again recounted the names of people that she believes to be able to stay with. We discussed the fact that there was an initial refusal by her county to take her case psych concerned that she was being put in guardianship secondary to her addiction and not appreciating the significance of psychiatric impairment. We are reviewing it and we should hear something shortly and we explained that to her. She denies major issues with medication. Mental Status Exam MSE Comments: This is a slender white female who appeared much older than her stated age in hospital scrubs with improving grooming but adequate eye contact. Poor dentition. There was no evidence of any abnormal involuntary motor movements appreciated. Cooperative with exam in no acute distress. Speech was normal in rate and volume. Mood described as good. Her affect remained flat. Thought process was linear with no use of clang associations appreciated today. There was mild evidence of emotional incontinence with no periods of intense crying. Thought content: Patient did not report suicidal or homicidal ideation. There was no clear evidence of delusional thinking but continued evidence of some overvalued ideas. She did not report auditory or visual hallucinations. Her attention and concentration appeared limited and memory was more reliable but none were formally tested. She is alert and oriented x3. Insight, judgment and impulse control were improving, but remained limited at this time. Vitals/I&O/Wt Last Vital Signs Temp 98.3 F 09/10/22 20:59 Pulse 98 09/10/22 20:59 Resp 16 09/10/22 20:59 BP 108/75 09/10/22 20:59 Pulse Ox 96 09/10/22 20:59 O2 Del Method 09/09/22 14:00 Data NPU 08/07/22 08:21 A&P Assessment and plan (1) Psychosis: (2) Methamphetamine use disorder, severe: (3) Altered mental status: Plan This is a 31-year-old white female who looks notably altered in mental status and a presentation consistent with methamphetamine use who presents with psychosis, confusion emotional dysregulation with significant hyperkinetic activity. 1. Continued Abilify 20 mg p.o. every morning. Continue Invega sustenna. Continued Depakote DR 1000 mg p.o. twice daily. 3. Encourage individual, group and milieu therapies. 4. Encourage sober living treatment after discharge at the highest level of care to which she is willing to commit. Patient in need of inpatient substance abuse treatment. 5. KAN testing revealed only one area of concern out of 13, much improved, but continued lability depending on the day continues to suggest guardianship necessary. Episodes of emotional incontinence may be better treated with Nuedexta if possible. 6. 21-day hold granted. Guardianship hearing still not scheduled in [facility]. Placement with family in place of placement in [facility] remains less likely at this time. 7. We will need to clarify tomorrow but if they stick to their proposed decision she will likely need to be discharged. We will send a letter to them clarify our position of this being a clearly psychiatric decision that was driven or caused by her methamphetamine use but this point clearly the psychiatric sequela to that use. Involuntary Hold Information 96 Hour Hold: 96 Hour Involuntary Admission: No Attestations NPU Medical Necessity Statement*: Inpatient hospitalization is medically necessary and the clinically appropriate intervention at this time. We will monitor/initiate medications and make changes as indicated with likely length of stay 10-15 days. However she may need to be discharged tomorrow secondary to court decision. Coding Level of Care Code Acute Code for Chg Fwd Diagnoses Psychosis F29 Methamphetamine use disorder, severe F15.20 Altered mental status R41.82
[2022-09-11 14:00] VITALS: BP 100/69; PULSE 89; RESP 18; TEMP 36.4; O2SAT 97
[2022-09-11 19:29] VITALS: BP 105/71; PULSE 79; RESP 18; TEMP 36.9; O2SAT 97
[2022-09-12] MEDS: divalproex DR 500 mg Tablet 1000 MG PO (08:01)
[2022-09-12] MEDS: ARIPiprazole 10 mg Tablet 20 MG PO (08:02)
[2022-09-12] MEDS: nicotine 2 mg Gum BUCCAL ×2 (10:31→14:24)
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
[2022-09-12 13:22] VITALS: BP 105/71; PULSE 79; RESP 18; TEMP 36.9; O2SAT 97
[2022-09-12 14:00] VITALS: BP 104/70; PULSE 88; RESP 16; TEMP 36.6; O2SAT 97
== END 2022-09-12 15:09 | disposition home or self-care (01) | DRG 897 ==
PROVIDERS: Admitting Provider Psychiatry & Neurology Psychiatry; PCP Family Medicine; Visit Provider Psychiatry & Neurology Psychiatry
DX: F15.259 Other stimulant dependence with stimulant-induced psychotic disorder, unspecified (principal); F15.20 Other stimulant dependence, uncomplicated; F12.90 Cannabis use, unspecified, uncomplicated; Z59.00 Homelessness unspecified; F17.210 Nicotine dependence, cigarettes, uncomplicated
CPT/HCPCS: 36415; 80076; 80164; 85025; 86592; 87081; 87486; 87491; 87581; 87591; 87633; 87635; 87661; 87804; 87880; 90471; 90686; 93005; 96372; 97150; 97165; 97167; J1200; J1630; J2060; J3486; Q0162; Q0163